=== PATIENT | male | born 1985 | race Caucasian/White ===

== ENCOUNTER 2016-11-24 16:20 | Emergency (ER) | payer SELFPAY ==
[2016-11-24 16:28] VITALS: BP 112/58; PULSE 116; RESP 20; TEMP 99.3; O2SAT 92
[2016-11-24] MEDS ORDERED: NS 2,200 ML IV ONE (16:55)
--- NOTE | 2016-11-24 17:00 | EDPHY ---
H & P Stated Complaint: multiple inf sores over body/drowsy/denies drug use Time Seen by Provider: 11/24/16 16:39 HPI/ROS: Chief complaint: Feels unwell, believes he has an infection History of present illness: This is a 31-year-old male, homeless, recently treated in [place] for endocarditis reporting 3 months of IV antibiotics who presents to the emergency department stating he feels unwell. Patient describes generalized malaise. He further has noticed the sudden onset of wounds over the last 3-4 days across his body including the legs, torso and face. The wounds are uncomfortable. Patient states in the spring of this year he was treated in [place] for infectious endocarditis. Review of systems: A 10 point review of systems was obtained and other than described above was negative - Personal History Current Tetanus/Diphtheria Vaccine: Yes - Medical/Surgical History Hx Asthma: No Hx Chronic Respiratory Disease: No Hx Diabetes: No Hx Cardiac Disease: No Hx Renal Disease: No Hx Cirrhosis: No Hx Alcoholism: No Hx HIV/AIDS: No Hx Splenectomy or Spleen Trauma: No Other PMH: endocarditis/ - Social History Smoking Status: Never smoked - Physical Exam Exam: General Appearance: Alert, unwell appearing. Eyes: Pupils equal and round no pallor or injection. ENT, Mouth: Mucous membranes moist. Respiratory: There are no retractions, lungs are clear to auscultation. Cardiovascular: Tachycardic with systolic murmur Gastrointestinal: Abdomen is soft and non tender, no masses, bowel sounds normal. Neurological: Alert. Strength and sensation intact and symmetrical. Skin: Multiple crusted wounds to the legs, torso and the face Musculoskeletal: Neck is supple non tender. Extremities are symmetrical, full range of motion. Psychiatric: There is no agitation. Constitutional: Initial Vital Signs Temperature (C) 37.4 C 11/24/16 16:24 Heart Rate 116 H 11/24/16 16:24 Respiratory Rate 20 11/24/16 16:24 Blood Pressure 112/58 L 11/24/16 16:24 O2 Sat (%) 92 11/24/16 16:24 O2 Delivery Mode Room Air Allergies/Adverse Reactions: No Known Allergies Allergy (Unverified 11/24/16 16:24) Home Medications: Medication Instructions Recorded NK [No Known Home Meds] 11/24/16 Medical Decision Making ED Course/Re-evaluation: Patient is seen under the supervision of my primary supervising physician Dr. Serena Vee. Patient presents to the emergency department with a friend concerned he has an infection. He describes feeling unwell and developing skin lesions. Patient does have a history of IV drug abuse. He did have infectious endocarditis in the spring of this year and states he had 3 months worth of IV antibiotics back in [place]. On my evaluation he is unwell appearing. He is tachycardic. Septic workup is begun including blood studies and aggressive fluid hydration. Patient informed nursing staff he did not want to pursue a workup. He stated he wanted to leave. I re-evaluated the patient. Patient was fully awake, alert and oriented. He stated he just did not want to be here and wanted to leave. I discussed with him I am very concerned for potential severe infection that could be possibly disabling or life-threatening. He is able to verbalize what my concerns are iand understands them. He still wants to leave. He is competent to make this decision. He understands this is against medical advice. Patient ultimately left AMA with his friend. He understands he can return any time if he would like to pursue a workup. Differential Diagnosis: Included but not limited to skin infections, respiratory infections including pneumonia, infectious endocarditis Departure - Departure Disposition: Against Medical Advice Clinical Impression: Malaise, Skin lesions Condition: Fair Referrals: NONE *PRIMARY CARE P,. [Primary Care Provider] - As per Instructions
[2016-11-24] MEDS ORDERED: NALOXONE HCL 0.4 MG/ML INJ IVP ONE (17:08)
== END 2016-11-24 17:42 | disposition left against medical advice (07) ==
DX: R53.81 Other malaise (principal); L98.9 Disorder of the skin and subcutaneous tissue, unspecified
CPT/HCPCS: J2310

== ENCOUNTER 2017-01-25 14:16 | Inpatient (IN) | payer SELFPAY ==
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
[2017-01-25 14:35] LABS: % IMMATURE GRANULYOCYTES 1.1 % (0.0-1.1); ABSOLUTE IMMATURE GRANULOCYTES 0.15 10^3/uL (0.00-0.10); ADD DIFF? NO; ADD MORPH? NO; ADD SCAN? NO; ATYPICAL LYMPHOCYTE FLAG 50 (0-99); FRAGMENT RBC FLAG 0 (0-99); HEMATOCRIT 42.6 % (40.0-51.0); HEMOGLOBIN 13.3 g/dL (13.7-17.5); LEFT SHIFT FLG 0 (0-99); LIPEMIA HEMOLYSIS FLAG 80 (0-99); MEAN CELL HEMOGLOBIN 26.8 pg (27.9-34.1); MEAN CELL HEMOGLOBIN CONCENTR. 31.2 g/dL (32.4-36.7); MEAN CELL VOLUME 85.9 fL (81.5-99.8); MEAN PLATELET VOLUME 8.9 fL (8.7-11.7); PLATELET CLUMPS FLAG 0 (0-99); PLATELET COUNT 366 10^3/uL (150-400); RED BLOOD CELL COUNT 4.96 10^6/uL (4.40-6.38); RED CELL DISTRIBUTION WIDTH 18.6 % (11.5-15.2)
[2017-01-25 14:50] LABS: ANION GAP 11 mEq/L (8-16); C-REACTIVE PROTEIN 17.3 mg/L (<10.0); CALCIUM 9.3 mg/dL (8.5-10.4); CARBON DIOXIDE 25 mEq/l (22-31); CHLORIDE 105 mEq/L (97-110); CREATININE 0.6 mg/dL (0.7-1.3); GLOMERULAR FILTRATION RATE > 60; GLUCOSE 107 mg/dL (70-100); SODIUM 141 mEq/L (134-144)
[2017-01-25 15:07] LABS: SEDIMENTATION RATE 38 MM/HR (0-15)
[2017-01-25] MEDS ORDERED: ACETAMINOPHEN 325 MG TAB PO ONE (16:31)
--- NOTE | 2017-01-25 16:40 | ECHO ---
[email or web address] [address] [address] Main: [phone] Fax: [email or web address] Echocardiogram Name: SAJAN MEYER MR#: [id number] Study Date: 01/25/2017 Study Time: 03:37 PM Date of : 1985 Age: 31 year(s) Height: 177.8 cm (70 in.) Weight: 68.04 kg (150 lb.) BSA: 1.85 m2 Gender: Male Examination: Echo Indication: Chest Pain, history of pericarditis Image Quality: Adequate Contrast: Requested by: Manuel Garcia BP: 125 mmHg/75 mmHg Heart Rate: Rhythm: Indication: Chest Pain, history of pericarditis Procedure Staff Mold Stripper: Js Carvajal Reading Physician: Sanchez Wallace Requesting Provider: Conclusions: EF is 69 %. Flattened interventricular septum secondary to RV volum/pressure overload. Mildly to moderately dilated right ventricle. Mildly reduced RV function. Severe tricuspid regurgitation is present. Large vegetation noted on the anterior tricuspid leaflet. The pulmonary artery pressure is moderately increased. recommend cardiothorasic and infectious disease consults Measurements: Chambers Valvular Assessment AV/MV Valvular Assessment TV/PV Normal Normal Normal Name Value Range Name Value Range Name Value Range Ao Karen (MM): 3.4 cm (2.2 cm-3.7 AV Vmax: 0.78 m/s (1 m/s-1.7 TR Vmax: 3.65 mm/s ( - ) cm) m/s) TR PGmax: 53 mmHg ( - ) IVSd (2D): 0.8 cm (0.6 cm-1.1 AV maxP mmHg ( - ) syst. PAP: 58 mmHg ( - ) cm) LVOT Vmax: 0.85 m/s (0.7 m/s-1.1 LVDd (2D): 4.4 cm (4.2 cm-5.9 m/s) cm) MV E Vmax: 0.73 m/s ( - ) LVDs (2D): 2.7 cm (2.1 cm-4 MV A Vmax: 0.43 m/s ( - ) cm) MV E/A: 1.70 ( - ) LVPWd (2D): 1.0 cm (0.6 cm-1 cm) LVEF (2D): 69 (>=54 %) Continued Measurements: Chambers Valvular Assessment TV/PV Name Value Name Value LADs Lon.4 cm CVP (est.): 5 mmHg Patient: SAJAN MEYER Study Date: 01/25/2017 Page 1 of 2 03:37 PM LA Area: 10.8 cm2 Findings: Left Ventricle: Normal size left ventricle. Normal global systolic LV function. EF is 69 %. Flattened interventricular septum secondary to RV volum/pressure overload. Right Ventricle: Mildly to moderately dilated right ventricle. Mildly reduced RV function. Left Atrium: The left atrium is normal in size. Right Atrium: The right atrium is normal in size. Mitral Valve: The mitral valve is normal in appearance. Mild mitral valve regurgitation is present. Aortic Valve: The aortic valve is normal in appearance. There is no significant aortic valve regurgitation. Tricuspid Valve: Abnormal appearing tricuspid valve. Severe tricuspid regurgitation is present. Large vegetation noted on the anterior tricuspid leaflet. The pulmonary artery pressure is moderately increased. Pulmonic Valve: Pulmonary valve not well visualized. Pericardium: No pericardial effusion. (No Signature Object) Patient: SAJAN MEYER Study Date: 01/25/2017 Page 2 of 2 03:37 PM [id number]
[2017-01-25] MEDS ORDERED: ACETAMINOPHEN 325 MG TAB PO PRN (18:48)
[2017-01-25] MEDS ORDERED: ONDANSETRON DISINTEGRATING 4 MG TAB PO PRN (18:48)
[2017-01-25] MEDS ORDERED: LORazepam 0.5 MG TAB PO PRN (18:48)
[2017-01-25] MEDS ORDERED: ONDANSETRON 4 MG/2 ML VIAL IVP PRN (18:48)
[2017-01-25] MEDS ORDERED: ALPRAZolam 1 MG TAB PO PRN (19:28)
[2017-01-25] MEDS: NICOTINE 14 MG/24 HR PATCH TD SCH (19:59)
[2017-01-25] MEDS: OXYCODONE/APAP 5/325 TAB PO PRN (19:59)
[2017-01-25] MEDS: ALPRAZolam 1 MG TAB PO PRN (19:59)
[2017-01-25] MEDS: IBUPROFEN 200 MG TAB PO PRN (19:59)
[2017-01-25] MEDS ORDERED: ceFAZolin 2 GM/DEXTROSE 100 ML IV SCH (22:00)
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
[2017-01-26] MEDS: OXYCODONE/APAP 5/325 TAB PO PRN ×5 (02:57→22:12)
[2017-01-26] MEDS: IBUPROFEN 200 MG TAB PO PRN ×2 (02:57→09:05)
[2017-01-26 04:39] LABS: % IMMATURE GRANULYOCYTES 0.9 % (0.0-1.1); ABSOLUTE IMMATURE GRANULOCYTES 0.11 10^3/uL (0.00-0.10); ADD DIFF? NO; ADD MORPH? NO; ADD SCAN? NO; ATYPICAL LYMPHOCYTE FLAG 40 (0-99); FRAGMENT RBC FLAG 0 (0-99); HEMATOCRIT 39.6 % (40.0-51.0); HEMOGLOBIN 12.4 g/dL (13.7-17.5); LEFT SHIFT FLG 0 (0-99); LIPEMIA HEMOLYSIS FLAG 80 (0-99); MEAN CELL HEMOGLOBIN 27.1 pg (27.9-34.1); MEAN CELL HEMOGLOBIN CONCENTR. 31.3 g/dL (32.4-36.7); MEAN CELL VOLUME 86.7 fL (81.5-99.8); MEAN PLATELET VOLUME 8.9 fL (8.7-11.7); PLATELET CLUMPS FLAG 0 (0-99); PLATELET COUNT 299 10^3/uL (150-400); RED BLOOD CELL COUNT 4.57 10^6/uL (4.40-6.38); RED CELL DISTRIBUTION WIDTH 18.9 % (11.5-15.2)
[2017-01-26 05:00] LABS: ANION GAP 10 mEq/L (8-16); CALCIUM 8.6 mg/dL (8.5-10.4); CARBON DIOXIDE 27 mEq/l (22-31); CHLORIDE 107 mEq/L (97-110); CREATININE 0.6 mg/dL (0.7-1.3); GLOMERULAR FILTRATION RATE > 60; GLUCOSE 86 mg/dL (70-100); POTASSIUM 4.5 mEq/L (3.5-5.2); SODIUM 144 mEq/L (134-144)
[2017-01-26] MEDS: ALPRAZolam 1 MG TAB PO PRN (08:00)
[2017-01-26] MEDS: NICOTINE 14 MG/24 HR PATCH TD SCH (08:01)
[2017-01-26] MEDS ORDERED: ENOXAPARIN 40 MG/0.4 ML SYR SC SCH (09:00)
[2017-01-26] MEDS ORDERED: cefTRIAXone 2 GM in D5W 50 ML IV SCH (09:00)
--- NOTE | 2017-01-26 09:30 | PDMN ---
Medical Necessity Medical necessity: M334 infective endocarditis- fever, fatigue, wt. loss- in IV drug user with hx of previous endocarditis-
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
[2017-01-26] MEDS ORDERED: IOPAMIDOL (ISOVUE 370) 100 ML BTL IV ONE (13:22)
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
[2017-01-26] MEDS: VANCOMYCIN HCL/NORMAL SALINE 250 ML IV SCH (17:41)
[2017-01-26] MEDS ORDERED: HEPARIN/DEXTROSE 500 ML IV SCH (18:00)
[2017-01-26] MEDS ORDERED: HEPARIN 10,000 UNIT/10 ML MDV IVP ONE (18:00)
[2017-01-26] MEDS ORDERED: HEPARIN 10,000 UNIT/10 ML MDV IVP PRN (18:00)
[2017-01-26] MEDS: ALPRAZolam 1 MG TAB PO SCH (20:01)
[2017-01-26 20:38] LABS: % IMMATURE GRANULYOCYTES 0.9 % (0.0-1.1); ADD DIFF? NO; ADD MORPH? NO; ADD SCAN? NO; ATYPICAL LYMPHOCYTE FLAG 30 (0-99); FRAGMENT RBC FLAG 0 (0-99); HEMATOCRIT 39.5 % (40.0-51.0); HEMOGLOBIN 12.2 g/dL (13.7-17.5); LEFT SHIFT FLG 0 (0-99); LIPEMIA HEMOLYSIS FLAG 80 (0-99); MEAN CELL HEMOGLOBIN 26.7 pg (27.9-34.1); MEAN CELL HEMOGLOBIN CONCENTR. 30.9 g/dL (32.4-36.7); MEAN CELL VOLUME 86.4 fL (81.5-99.8); MEAN PLATELET VOLUME 8.8 fL (8.7-11.7); PLATELET CLUMPS FLAG 0 (0-99); PLATELET COUNT 313 10^3/uL (150-400); RED BLOOD CELL COUNT 4.57 10^6/uL (4.40-6.38); RED CELL DISTRIBUTION WIDTH 18.9 % (11.5-15.2)
[2017-01-26 20:44] LABS: APTT 29.3 SEC (23.0-38.0); INR 0.9 (0.83-1.16)
[2017-01-26] MEDS: ZOLPIDEM TARTRATE 5 MG TAB PO PRN (22:13)
[2017-01-27] MEDS: OXYCODONE/APAP 5/325 TAB PO PRN ×5 (03:16→23:08)
[2017-01-27] MEDS: VANCOMYCIN HCL/NORMAL SALINE 250 ML IV SCH ×3 (04:32→23:09)
[2017-01-27] MEDS: ALPRAZolam 1 MG TAB PO SCH ×4 (09:01→23:09)
[2017-01-27] MEDS: NICOTINE 14 MG/24 HR PATCH TD SCH (09:01)
--- NOTE | 2017-01-27 10:56 | PCMIDPN ---
Assessment/Plan: Coagulase negative staphylococcus TV endocarditis with significant TV dysfunction + pulm emboli + elevated PA pressures --increase dose of vancomycin for goal trough 15-20 , vancomycin 1gm IV q8h --get records from last, hospitalization May 2016; [facility] --repeat blood cultures tomorrow --await ID of organism --HIV, HCV screening --dc ceftriaxone extensive discussion with mom via phone. Endorses past drug use IV, long- standing anxiety with minimal psychiatric evaluation and treatment with Xanax Meds vancomycin 1gm IV q12, #1 ceftriaxone #2 Subjective: denies IVDU to me, reports heavy MJ use and Xanex 4mg/day total upset about blood draw Objective: Vital Signs Temp Pulse Resp BP Pulse Ox 36.6 C 101 H 18 106/79 95 01/27/17 08:00 01/27/17 08:00 01/27/17 08:00 01/27/17 08:00 01/27/17 08:00 Laboratory Results 01/26/17 20:15 01/26/17 04:06 01/26/17 01/27/17 01/28/17 05:59 05:59 05:59 Intake Total 1100 2480 Output Total 1750 Balance 1100 730 ESR 38 MM/HR (0-15) H 01/25/17 14:16 C-Reactive Protein 17.3 mg/L (<10.0) H 01/25/17 14:16 - Physical Exam General Appearance: alert, other (Tearful) EENT: pale conjunctiva, poor dentition Respiratory: other (splinting, decreased breath sounds in the bases), No accessory muscle use Cardiac/Chest: regular rate, rhythm, systolic murmur (Blowing systolic murmur loudest at the lower left sternal border) Extremities: other (Poor nail hygiene no clear peripheral stigmata of endocarditis), No pedal edema Abdomen: non-tender, soft Male Genitalia: No caraballo Skin: embolic lesions, No rash, No signs of IVDA Neuro/Psych: oriented x 3, No motor weakness - Line/s PIV Lines: No drainage, No erythema - Time Spent With Patient Time Spent with Patient: greater than 35 minutes (care coordinated with RN and hospitalist) Time Spent with Patient: Greater than 35 minutes spent on this patients care, greater than 50% of time spent counseling, educating, and coordinating care regarding the above mentioned plan. ICD10 Worksheet Patient Problems: Problems Problem Status Onset Endocarditis Acute
[2017-01-27] MEDS: NICOTINE 21 MG/24 HR PATCH TD SCH (12:08)
[2017-01-27] MEDS: APIXABAN 5 MG TAB PO SCH ×2 (12:10→21:01)
[2017-01-27] MEDS: SERTRALINE HCL 50 MG TAB PO SCH (17:26)
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
[2017-01-27] MEDS: ZOLPIDEM TARTRATE 5 MG TAB PO PRN (21:01)
[2017-01-27 21:29] LABS: ALBUMIN 2.9 g/dL (3.5-5.0); BILIRUBIN,TOTAL 0.1 mg/dL (0.1-1.4); BILIRUBIN-CONJUGATED 0.1 mg/dL (0.0-0.5); TOTAL PROTEIN 6.3 g/dL (6.3-8.2)
[2017-01-28] MEDS: oxyCODONE IR 5 MG TAB PO PRN ×5 (05:06→21:47)
[2017-01-28] MEDS: VANCOMYCIN HCL/NORMAL SALINE 250 ML IV SCH ×3 (05:54→21:30)
[2017-01-28] MEDS: ALPRAZolam 1 MG TAB PO SCH ×2 (05:54→11:29)
[2017-01-28] MEDS: NICOTINE 21 MG/24 HR PATCH TD SCH (09:26)
[2017-01-28] MEDS: SERTRALINE HCL 50 MG TAB PO SCH (09:28)
[2017-01-28] MEDS: APIXABAN 5 MG TAB PO SCH ×2 (09:29→20:45)
[2017-01-28 14:34] LABS: % IMMATURE GRANULYOCYTES 1.7 % (0.0-1.1); ABSOLUTE IMMATURE GRANULOCYTES 0.21 10^3/uL (0.00-0.10); ADD DIFF? NO; ADD MORPH? NO; ADD SCAN? NO; ATYPICAL LYMPHOCYTE FLAG 40 (0-99); FRAGMENT RBC FLAG 0 (0-99); HEMATOCRIT 38.7 % (40.0-51.0); HEMOGLOBIN 12.5 g/dL (13.7-17.5); LEFT SHIFT FLG 10 (0-99); LIPEMIA HEMOLYSIS FLAG 80 (0-99); MEAN CELL HEMOGLOBIN 27.7 pg (27.9-34.1); MEAN CELL HEMOGLOBIN CONCENTR. 32.3 g/dL (32.4-36.7); MEAN CELL VOLUME 85.6 fL (81.5-99.8); MEAN PLATELET VOLUME 8.4 fL (8.7-11.7); PLATELET CLUMPS FLAG 0 (0-99); PLATELET COUNT 213 10^3/uL (150-400); RED BLOOD CELL COUNT 4.52 10^6/uL (4.40-6.38); RED CELL DISTRIBUTION WIDTH 19.1 % (11.5-15.2)
[2017-01-28 15:06] LABS: ALANINE AMINOTRANSFERASE 127 IU/L (21-72); ALBUMIN 2.7 g/dL (3.5-5.0); ALKALINE PHOSPHATASE 199 IU/L (38-126); ANION GAP 9 mEq/L (8-16); ASPARTATE AMINOTRANSFERASE 98 IU/L (17-59); BILIRUBIN,TOTAL 0.2 mg/dL (0.1-1.4); BILIRUBIN-CONJUGATED 0.1 mg/dL (0.0-0.5); BILIRUBIN-UNCONJUGATED 0.1 mg/dL (0.0-1.1); CALCIUM 8.3 mg/dL (8.5-10.4); CARBON DIOXIDE 28 mEq/l (22-31); CHLORIDE 100 mEq/L (97-110); CREATININE 0.6 mg/dL (0.7-1.3); GLOMERULAR FILTRATION RATE > 60; GLUCOSE 114 mg/dL (70-100); POTASSIUM 4.5 mEq/L (3.5-5.2); SODIUM 137 mEq/L (134-144); TOTAL PROTEIN 6.6 g/dL (6.3-8.2)
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
[2017-01-28] MEDS ORDERED: ALPRAZolam 0.5 MG TAB PO PRN (15:30)
--- NOTE | 2017-01-28 17:31 | PCMIDPN ---
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 Reassess trough this evening with goal trough approximately 15. Repeat blood cultures are pending to assess for clearance of bacteremia. Hold off on PICC line placement given need to ensure no bacteremia present and will require discussion with patient prior to placement given history of injection drug use. * Hepatitis-C 01/28/17 17:28 01/28/17 17:30 Subjective: Patient complains of diffuse body pain. Objective: Vital Signs Temp Pulse Resp BP Pulse Ox 36.8 C 104 H 18 118/85 H 91 L 01/28/17 11:04 01/28/17 11:04 01/28/17 11:04 01/28/17 11:04 01/28/17 08:00 Laboratory Results 01/28/17 14:24 01/28/17 14:24 01/27/17 01/28/17 01/29/17 05:59 05:59 05:59 Intake Total 2480 300 Output Total 1750 Balance 730 300 ESR 38 MM/HR (0-15) H 01/25/17 14:16 C-Reactive Protein 17.3 mg/L (<10.0) H 01/25/17 14:16 Vancomycin # 2 Blood cultures x2 01/27/2017 pending Blood cultures times for 01/25/2017 with Staphylococcus haemolyticus which is beta-lactam resistant Laboratory Tests 01/27/17 01/27/17 01/27/17 18:56 20:45 20:45 Vancomycin Trough Hep Bs Antigen NEGATIVE Hep Bs Antibody Pending Hep Bs Antibody, Quant Pending Hepatitis C Antibody REACTIVE H HIV 1&2 Antibody NEGATIVE 01/27/17 20:45 Vancomycin Trough 7.6 Hep Bs Antigen Hep Bs Antibody Hep Bs Antibody, Quant Hepatitis C Antibody HIV 1&2 Antibody - Physical Exam General Appearance: alert, non-toxic, other (Mildly agitated) EENT: No scleral icterus, No conjunctival petechiae Respiratory: lungs clear, No respiratory distress Cardiac/Chest: regular rate, rhythm, systolic murmur (3/6 throughout) Abdomen: non-tender, No distended Skin: No embolic lesions ICD10 Worksheet Patient Problems: Problems Problem Status Onset Endocarditis Acute
[2017-01-28] MEDS: ALPRAZolam 0.25 MG TAB PO PRN (20:45)
[2017-01-28] MEDS: ZOLPIDEM TARTRATE 5 MG TAB PO PRN ×2 (21:47→21:49)
[2017-01-29] MEDS: oxyCODONE IR 5 MG TAB PO PRN ×4 (02:11→18:18)
[2017-01-29] MEDS: ALPRAZolam 0.25 MG TAB PO PRN ×4 (03:14→17:38)
[2017-01-29] MEDS: VANCOMYCIN HCL/NORMAL SALINE 250 ML IV SCH ×3 (04:32→20:50)
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
[2017-01-29] MEDS: NICOTINE 21 MG/24 HR PATCH TD SCH (09:56)
[2017-01-29] MEDS: APIXABAN 5 MG TAB PO SCH ×2 (09:57→20:50)
[2017-01-29] MEDS: SENNOSIDES 1 TAB PO SCH ×2 (09:57→20:50)
[2017-01-29] MEDS: SERTRALINE HCL 50 MG TAB PO SCH (09:58)
[2017-01-29] MEDS: PSYLLIUM METAMUCIL 1 PKT PO SCH (09:59)
[2017-01-29] MEDS: POLYETHYLENE GLYCOL 3350 17 GM PKT PO SCH (09:59)
--- NOTE | 2017-01-29 10:10 | PCMIDPN ---
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 Patient is doing well on IV vancomycin. Waiting on most recent cultures from 01/27 to show a whether they will be negative or not. At present point this is 36 hours at incubation time for those. Plan to continue the vancomycin. Patient related that his Plan after this hospitalization was to go back to live with his mother in [place]. Plan: 1. Continue IV vancomycin. 2. Follow up with blood cultures from 01/27/17. 3. Follow clinical course. 01/29/17 14:08 Subjective: Patient was agitated with a vocational nursing instructor this morning. Admits to anxiety underlying all of these difficult interactions. States he still aches all over. No fevers or chills. No rash Objective: Vancomycin #2 Vital Signs Temp Pulse Resp BP Pulse Ox 36.6 C 93 18 119/75 91 L 01/29/17 08:00 01/29/17 08:00 01/29/17 08:00 01/29/17 08:00 01/29/17 08:00 Laboratory Results 01/28/17 14:24 01/28/17 14:24 01/28/17 01/29/17 01/30/17 05:59 05:59 05:59 Intake Total 300 1830 Output Total 1200 Balance 300 630 ESR 38 MM/HR (0-15) H 01/25/17 14:16 C-Reactive Protein 17.3 mg/L (<10.0) H 01/25/17 14:16 - Physical Exam General Appearance: WD/WN, alert, no apparent distress, thin, non-toxic Respiratory: lungs clear, normal breath sounds, No respiratory distress Cardiac/Chest: regular rate, rhythm, No tachycardia Skin: normal color, warm/dry, No rash Neuro/Psych: alert, normal mood/affect, oriented x 3 ICD10 Worksheet Patient Problems: Problems Problem Status Onset Endocarditis Acute
[2017-01-29 13:51] LABS: ALCOHOL - URINE NEGATIVE mg/dL (Cutoff: 10); BARBITURATES, URINE NEGATIVE; COCAINE URINE NEGATIVE; OPIATES URINE NEGATIVE; PHENCYCLIDINE, URINE NEGATIVE ng/mL (Cutoff: 25); TETRAHYDROCANNIBINOL URINE Presumptive Positive ng/mL (Cutoff: 50)
[2017-01-29 13:59] LABS: HEPATITIS Bs Ab QUANT 613 mIU/mL
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
[2017-01-29] MEDS: traZODone 50 MG TAB PO PRN (21:31)
[2017-01-30] MEDS: oxyCODONE IR 5 MG TAB PO PRN ×4 (00:17→18:31)
[2017-01-30] MEDS: VANCOMYCIN HCL/NORMAL SALINE 250 ML IV SCH ×2 (04:22→16:35)
[2017-01-30 05:07] LABS: % IMMATURE GRANULYOCYTES 1.5 % (0.0-1.1); ABSOLUTE IMMATURE GRANULOCYTES 0.19 10^3/uL (0.00-0.10); ADD DIFF? NO; ADD MORPH? NO; ADD SCAN? NO; ATYPICAL LYMPHOCYTE FLAG 30 (0-99); FRAGMENT RBC FLAG 0 (0-99); HEMATOCRIT 40.4 % (40.0-51.0); HEMOGLOBIN 13.4 g/dL (13.7-17.5); LEFT SHIFT FLG 10 (0-99); LIPEMIA HEMOLYSIS FLAG 80 (0-99); MEAN CELL HEMOGLOBIN 27.8 pg (27.9-34.1); MEAN CELL HEMOGLOBIN CONCENTR. 33.2 g/dL (32.4-36.7); MEAN CELL VOLUME 83.8 fL (81.5-99.8); MEAN PLATELET VOLUME 8.7 fL (8.7-11.7); PLATELET CLUMPS FLAG 0 (0-99); PLATELET COUNT 205 10^3/uL (150-400); RED BLOOD CELL COUNT 4.82 10^6/uL (4.40-6.38)
[2017-01-30 05:17] LABS: ALANINE AMINOTRANSFERASE 112 IU/L (21-72); ALBUMIN 3.6 g/dL (3.5-5.0); ALKALINE PHOSPHATASE 203 IU/L (38-126); ANION GAP 13 mEq/L (8-16); ASPARTATE AMINOTRANSFERASE 66 IU/L (17-59); BILIRUBIN,TOTAL 0.3 mg/dL (0.1-1.4); CALCIUM 8.9 mg/dL (8.5-10.4); CARBON DIOXIDE 26 mEq/l (22-31); CHLORIDE 97 mEq/L (97-110); CREATININE 0.5 mg/dL (0.7-1.3); GLOMERULAR FILTRATION RATE > 60; GLUCOSE 84 mg/dL (70-100); POTASSIUM 4.6 mEq/L (3.5-5.2); SODIUM 136 mEq/L (134-144); TOTAL PROTEIN 7.4 g/dL (6.3-8.2)
[2017-01-30] MEDS: ALPRAZolam 0.25 MG TAB PO PRN ×2 (05:34→17:58)
[2017-01-30] MEDS: SERTRALINE HCL 50 MG TAB PO SCH (08:45)
[2017-01-30] MEDS: POLYETHYLENE GLYCOL 3350 17 GM PKT PO SCH (08:45)
[2017-01-30] MEDS: APIXABAN 5 MG TAB PO SCH ×2 (08:45→20:08)
[2017-01-30] MEDS: NICOTINE 21 MG/24 HR PATCH TD SCH (08:45)
[2017-01-30] MEDS: PSYLLIUM METAMUCIL 1 PKT PO SCH (08:46)
[2017-01-30] MEDS: SENNOSIDES 1 TAB PO SCH ×2 (08:46→20:46)
--- NOTE | 2017-01-30 11:33 | PCMIDPN ---
Assessment/Plan: 1. 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 Will repeat vancomycin trough before dose adjustment, as would like trough around 15. I am very leery about a PICC line in this patient. Will need to discuss with my colleagues moving forward. 2.? Chronic hepatitis-C: Will obtain RNA to make sure he has not cleared this on his own. He is immune to hepatitis-B. Will check hepatitis a total antibody to ensure immunity and vaccinate if not immune. Subjective: Patient yelling at me about lack of pain control. Feels no one is listening to him. Wants more Percocet. Does not want to try Toradol, as tells me this does not work. Objective: Vancomycin 1 g IV q.8 hours day 3 Afebrile Vital Signs Temp Pulse Resp BP Pulse Ox 36.4 C 91 15 87/65 L 92 01/30/17 08:20 01/30/17 08:20 01/30/17 08:20 01/30/17 08:20 01/30/17 08:20 Laboratory Results 01/30/17 04:27 01/30/17 04:27 01/29/17 01/30/17 01/31/17 05:59 05:59 04:59 Intake Total 1830 3250 480 Output Total 1200 500 Balance 630 3250 -20 ESR 38 MM/HR (0-15) H 01/25/17 14:16 C-Reactive Protein 17.3 mg/L (<10.0) H 01/25/17 14:16 Blood cultures from January 27 show no growth so far Hepatitis-B immune HIV antibody negative - Physical Exam General Appearance: other (Thin, disheveled male laying in bed, nontoxic. Irritable.) EENT: No thrush Respiratory: lungs clear Cardiac/Chest: systolic murmur, other (No gallop.) Extremities: No calf tenderness Skin: No embolic lesions ICD10 Worksheet Patient Problems: Problems Problem Status Onset Endocarditis Acute
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
[2017-01-30] MEDS: VANCOMYCIN 1.25 GM in D5W 250 ML IV SCH (17:14)
[2017-01-31] MEDS: oxyCODONE IR 5 MG TAB PO PRN ×4 (00:45→17:35)
[2017-01-31] MEDS: VANCOMYCIN 1.25 GM in D5W 250 ML IV SCH ×3 (00:45→18:42)
[2017-01-31] MEDS: ALPRAZolam 0.25 MG TAB PO PRN (05:31)
[2017-01-31] MEDS: SERTRALINE HCL 50 MG TAB PO SCH (10:06)
[2017-01-31] MEDS: SENNOSIDES 1 TAB PO SCH ×2 (10:06→20:45)
[2017-01-31] MEDS: APIXABAN 5 MG TAB PO SCH ×2 (10:06→20:41)
[2017-01-31] MEDS: PSYLLIUM METAMUCIL 1 PKT PO SCH (10:07)
[2017-01-31] MEDS: NICOTINE 21 MG/24 HR PATCH TD SCH (10:07)
[2017-01-31] MEDS: POLYETHYLENE GLYCOL 3350 17 GM PKT PO SCH (10:07)
--- NOTE | 2017-01-31 11:25 | PCMIDPN ---
Assessment/Plan: 1. 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 Vancomycin dose increased yesterday given low trough. Would like trough at 15. Repeat trough tonight. Disposition very unclear at this point in time. No PICC line for now. Patient's mother coming to see him this , and he would like to go back to [place] with her. Will need to sort out these details. Of note, organism susceptible to Daptomycin, and microbiology will include this in his susceptibility profile. 2.? Chronic hepatitis-C: Quantitative RNA pending to make sure he has not cleared this on his own. He is immune to hepatitis-B. Hepatitis a total antibody pending. Vaccinate if not immune. Subjective: Very irritable this morning. Tells me that his anxiety is "out of control." Denies shortness of breath, diarrhea. Complaining of total body pain. Objective: Vancomycin 1.25 g IV q.8 hours day 4. Afebrile Vital Signs Temp Pulse Resp BP Pulse Ox 36.8 C 105 H 15 110/70 93 01/31/17 08:00 01/31/17 08:00 01/31/17 08:00 01/31/17 08:00 01/31/17 08:00 Laboratory Results 01/30/17 04:27 01/30/17 04:27 01/30/17 01/31/17 02/01/17 06:59 05:59 05:59 Intake Total Output Total Balance ESR 38 MM/HR (0-15) H 01/25/17 14:16 C-Reactive Protein 17.3 mg/L (<10.0) H 01/25/17 14:16 Repeat blood cultures have sterilized - Physical Exam General Appearance: no apparent distress, cachetic EENT: pharynx normal, No scleral icterus Respiratory: lungs clear Cardiac/Chest: regular rate, rhythm, systolic murmur Extremities: No pedal edema Abdomen: non-tender, soft Skin: No embolic lesions Neuro/Psych: no motor/sensory deficits, oriented x 3 ICD10 Worksheet Patient Problems: Problems Problem Status Onset Endocarditis Acute
[2017-01-31] MEDS: clonazePAM 0.5 MG TAB PO SCH ×2 (12:42→20:43)
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
[2017-01-31] MEDS: traZODone 50 MG TAB PO PRN (20:43)
[2017-02-01] MEDS: oxyCODONE IR 5 MG TAB PO PRN ×3 (01:29→16:28)
[2017-02-01] MEDS: VANCOMYCIN 1.25 GM in D5W 250 ML IV SCH ×3 (02:54→18:24)
[2017-02-01 05:43] LABS: ANION GAP 14 mEq/L (8-16); CALCIUM 9.1 mg/dL (8.5-10.4); CARBON DIOXIDE 23 mEq/l (22-31); CHLORIDE 100 mEq/L (97-110); CREATININE 0.5 mg/dL (0.7-1.3); GLOMERULAR FILTRATION RATE > 60; GLUCOSE 104 mg/dL (70-100); POTASSIUM 4.8 mEq/L (3.5-5.2); SODIUM 137 mEq/L (134-144)
[2017-02-01 08:09] LABS: 7-NH-CLONAZEPAM-BY GC/MS Negative; 7-NH-FLUNITRAZEPAM-BY GC/MS Negative ng/mL (Cutoff: 50); ALPHA OH-ALPRAZOLAM-BY GC/MS 284 ng/mL; ALPHA OH-TRIAZOLAM-BY GC/MS Negative; INTERPRETATION Positive.; LORAZEPAM-BY GC/MS Negative; NORDIAZEPAM-BY GC/MS Negative; OH-ETHYL-FLURAZEPAM-BY GC/MS Negative; OXAZEPAM-BY GC/MS Negative; TEMAZEPAM-BY GC/MS Negative
[2017-02-01] MEDS: SERTRALINE HCL 50 MG TAB PO SCH (09:04)
[2017-02-01] MEDS: APIXABAN 5 MG TAB PO SCH ×2 (09:04→19:52)
[2017-02-01] MEDS: POLYETHYLENE GLYCOL 3350 17 GM PKT PO SCH (09:05)
[2017-02-01] MEDS: clonazePAM 0.5 MG TAB PO SCH ×2 (09:05→16:28)
[2017-02-01] MEDS: SENNOSIDES 1 TAB PO SCH ×2 (09:06→19:55)
[2017-02-01] MEDS: PSYLLIUM METAMUCIL 1 PKT PO SCH (09:09)
[2017-02-01] MEDS: NICOTINE 21 MG/24 HR PATCH TD SCH (09:13)
[2017-02-01 10:19] LABS: CARBOXY-THC INTERPRETATION Positive.; CARBOXY-THC- by GC MS 136 ng/mL
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
--- NOTE | 2017-02-01 15:03 | ASMTCMCOM ---
CM Note CM Note Notes: Pt here with endocarditis, hx IV drug use. He will need LT IV ABX's. Discussed w/RN who reported that pt says he may be able to go home whis mom to [place] now. Apparently she will be here in next couple days. Anxiety has also been issue for pt- Flaca Saxena consult ordered and msg left w/her. CM w/f and will meet w/pt and mom when she arrives. Date Signed: 02/01/2017 03:02 PM Electronically Signed By:Kalee Peck RN
--- NOTE | 2017-02-01 17:13 | PCMIDPN ---
Assessment/Plan: Assessment/Plan: * Tricuspid valve endocarditis due to Staphylococcus haemolyticus with probable septic pulmonary emboli: Repeat blood culture show clearing of bacteremia. Continue vancomycin. Duration will need to be 4-6 weeks of therapy. Favor avoiding PICC line if possible given injection drug use history. Patient's mother is coming this week to help assist with ultimate disposition planning. * Hepatitis-C: Hepatitis C RNA pending. 02/01/17 17:11 02/01/17 17:12 Subjective: Patient complains of left-sided chest pain. Otherwise feels improved. Objective: Vital Signs Temp Pulse Resp BP Pulse Ox 36.6 C 116 H 12 137/91 H 94 02/01/17 16:00 02/01/17 16:00 02/01/17 16:00 02/01/17 16:00 02/01/17 16:00 Laboratory Results 01/30/17 04:27 02/01/17 04:05 01/31/17 02/01/17 02/02/17 05:59 05:59 05:59 Intake Total 3000 1100 Output Total Balance 3000 1100 ESR 38 MM/HR (0-15) H 01/25/17 14:16 C-Reactive Protein 17.3 mg/L (<10.0) H 01/25/17 14:16 Vancomycin # 5 Blood cultures x2 01/27/2017 no growth Laboratory Tests 01/31/17 17:41 Vancomycin Trough 15.5 - Physical Exam General Appearance: alert, no apparent distress, non-toxic EENT: No thrush, No conjunctival petechiae Respiratory: lungs clear, No respiratory distress Cardiac/Chest: regular rate, rhythm, systolic murmur (3/6 left and right upper sternal borders) Extremities: No inflammation Abdomen: non-tender, No distended Skin: No embolic lesions ICD10 Worksheet Patient Problems: Problems Problem Status Onset Endocarditis Acute
[2017-02-01] MEDS: traZODone 50 MG TAB PO PRN (19:53)
[2017-02-01] MEDS ORDERED: clonazePAM 1 MG TAB PO SCH (21:00)
[2017-02-02] MEDS: oxyCODONE IR 5 MG TAB PO PRN ×3 (01:47→17:58)
[2017-02-02] MEDS: VANCOMYCIN 1.25 GM in D5W 250 ML IV SCH ×3 (01:51→18:06)
[2017-02-02] MEDS: APIXABAN 5 MG TAB PO SCH ×2 (09:39→21:37)
[2017-02-02] MEDS: clonazePAM 0.5 MG TAB PO SCH (09:39)
[2017-02-02] MEDS: NICOTINE 21 MG/24 HR PATCH TD SCH (09:40)
[2017-02-02] MEDS: SERTRALINE HCL 50 MG TAB PO SCH (09:40)
[2017-02-02] MEDS: POLYETHYLENE GLYCOL 3350 17 GM PKT PO SCH (09:49)
[2017-02-02] MEDS: PSYLLIUM METAMUCIL 1 PKT PO SCH (09:49)
[2017-02-02] MEDS: SENNOSIDES 1 TAB PO SCH ×2 (09:49→21:37)
--- NOTE | 2017-02-02 15:17 | PCMIDPN ---
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 2nd episode of endocarditis at the same position although different organism. Discuss with cardiology if would benefit from BRITTANY to better delineate disease. Significant worsening valve function compared to past reports of echocardiograms. Blood cultures have cleared and vanco ROSETTA = 1 --continue vancomycin --check labs and vancomycin trough tomorrow, orders placed --follow up with cards about repeat TTE or BRITTANY # H/o GAS bacteremia TV endocarditis, R septic arthritis of shoulder, L foot cellulitis 06/27/16 blood cx negative s/p PCN -->ceftriaxone. GAS was clinda R # HCV Ab + (VL here pending, VL at outside hospital was 6.1) ; HBcAb + at outside hospital but HBV DNA 07/06/16 negative; HIV neg here # history of IV drug abuse: Stressed the importance of abstinence in light cut 2nd episode of endocarditis. Meds vancomycin 1.25gm IV q12, #6 vanco T 15 Records reviewed from OSH Subjective: Patient remains anxious but much more cooperative then passed exam Objective: Vital Signs Temp Pulse Resp BP Pulse Ox 36.6 C 106 H 12 115/71 96 02/02/17 07:15 02/02/17 12:00 02/02/17 12:00 02/02/17 12:00 02/02/17 12:00 Microbiology 01/27/17 18:56 Blood Culture - Final Blood 01/27/17 20:45 Blood Culture - Final Blood Laboratory Results 01/30/17 04:27 02/01/17 04:05 02/01/17 02/02/17 02/03/17 05:59 05:59 05:59 Intake Total 3000 2080 Balance 3000 2080 ESR 38 MM/HR (0-15) H 01/25/17 14:16 C-Reactive Protein 17.3 mg/L (<10.0) H 01/25/17 14:16 - Physical Exam General Appearance: alert, no apparent distress EENT: No scleral icterus Respiratory: lungs clear, No accessory muscle use Cardiac/Chest: regular rate, rhythm, systolic murmur Extremities: No pedal edema Skin: No rash Neuro/Psych: alert, normal mood/affect, oriented x 3 - Time Spent With Patient Time Spent with Patient: greater than 35 minutes Time Spent with Patient: Greater than 35 minutes spent on this patients care, greater than 50% of time spent counseling, educating, and coordinating care regarding the above mentioned plan. ICD10 Worksheet Patient Problems: Problems Problem Status Onset Endocarditis Acute
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
[2017-02-02] MEDS ORDERED: DIAZEPAM 5 MG TAB PO PRN (15:33)
[2017-02-02] MEDS: DIAZEPAM 5 MG TAB PO PRN ×2 (15:50→17:24)
--- NOTE | 2017-02-02 16:41 | ASMTCMCOM ---
CM Note CM Note Notes: 02/02/2017 Case Management Note Phone call to Mom Cait Verduzco [phone] to confirm trip to [place]. Plane arrives on at 1:30 pm, mom is renting car and plans to come to hospital directly from airport. Plans to return to [place] on Wednesday at 9:30 am flight. Mom reports that pt does not have an ID at this time. Confirmed with pt. Mom is bringing certifcate. Lack of ID prevents pt from boarding a flight back to [place]. Provided information on requirements for state id from [place] to both Mom and pt. Encouraged Mom and pt to explore a reissue of license with the state of [place]. Mom is uncomfortable at this time escorting pt back to [place] for further treatment. Discussed w/pt. Pt agreed to applications to long-term SNF for iv abx treatment. Case Management completed [employer] application, pt signed application. Faxed to [facility] at [phone], confirmed receipt with Austen at [facility]. manager fast food from [facility] to assess pt within 2 business days. Notified Celine about need for long-term medicaid application, will complete on Wednesday. Case Management d/c poc: complete the [facility] [employer] process. Send referrals to SNF for possible intermission coordinator placement to complete iv abx, pt requested referrals to [facility] locations only. Case management to follow. Date Signed: 02/02/2017 04:40 PM Electronically Signed By:Nupur Angulo RN
[2017-02-02] MEDS ORDERED: DIAZEPAM 5 MG TAB PO SCH (21:00)
[2017-02-02] MEDS: DIAZEPAM 5 MG TAB PO SCH (21:37)
[2017-02-02] MEDS: GABAPENTIN 400 MG CAP PO PRN (21:37)
[2017-02-03] MEDS: DIAZEPAM 5 MG TAB PO PRN ×2 (01:10→12:20)
[2017-02-03] MEDS: oxyCODONE IR 5 MG TAB PO PRN ×3 (04:03→23:04)
[2017-02-03] MEDS: VANCOMYCIN 1.25 GM in D5W 250 ML IV SCH ×3 (04:04→21:58)
[2017-02-03] MEDS: SENNOSIDES 1 TAB PO SCH ×2 (09:19→20:25)
[2017-02-03] MEDS: POLYETHYLENE GLYCOL 3350 17 GM PKT PO SCH (09:19)
[2017-02-03] MEDS: DIAZEPAM 5 MG TAB PO SCH ×2 (09:21→20:16)
[2017-02-03] MEDS: NICOTINE 21 MG/24 HR PATCH TD SCH (09:22)
[2017-02-03] MEDS: APIXABAN 5 MG TAB PO SCH ×2 (09:22→20:16)
[2017-02-03 09:23] LABS: AMPHETAMINES CONFIRM INTERP Positive.; AMPHETAMINES URINE LC/MS 169 ng/mL (Cutoff: 25); MDA ECSTASY METABOLITE LC/MS NEGATIVE ng/mL (Cutoff: 25); MDMA ECSTASY BY LC/MS NEGATIVE ng/mL (Cutoff: 25); METHAMPHETAMINE LC/MS 502 ng/mL (Cutoff: 25); PHENTERMINE BY LC/MS NEGATIVE ng/mL (Cutoff: 25); PSEUDOEPHEDRINE BY LC/MS NEGATIVE ng/mL (Cutoff: 25)
[2017-02-03] MEDS: PSYLLIUM METAMUCIL 1 PKT PO SCH (09:56)
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
[2017-02-03 12:27] LABS: % IMMATURE GRANULYOCYTES 1.8 % (0.0-1.1); ABSOLUTE IMMATURE GRANULOCYTES 0.27 10^3/uL (0.00-0.10); ADD DIFF? NO; ADD MORPH? NO; ADD SCAN? NO; ATYPICAL LYMPHOCYTE FLAG 30 (0-99); FRAGMENT RBC FLAG 0 (0-99); HEMATOCRIT 42.1 % (40.0-51.0); HEMOGLOBIN 13.5 g/dL (13.7-17.5); LEFT SHIFT FLG 10 (0-99); LIPEMIA HEMOLYSIS FLAG 80 (0-99); MEAN CELL HEMOGLOBIN 27.1 pg (27.9-34.1); MEAN CELL HEMOGLOBIN CONCENTR. 32.1 g/dL (32.4-36.7); MEAN CELL VOLUME 84.5 fL (81.5-99.8); MEAN PLATELET VOLUME 9.6 fL (8.7-11.7); PLATELET CLUMPS FLAG 0 (0-99); PLATELET COUNT 214 10^3/uL (150-400); RED BLOOD CELL COUNT 4.98 10^6/uL (4.40-6.38); RED CELL DISTRIBUTION WIDTH 19.6 % (11.5-15.2)
[2017-02-03 12:57] LABS: ALANINE AMINOTRANSFERASE 82 IU/L (21-72); ALBUMIN 4.1 g/dL (3.5-5.0); ALKALINE PHOSPHATASE 162 IU/L (38-126); ANION GAP 14 mEq/L (8-16); ASPARTATE AMINOTRANSFERASE 49 IU/L (17-59); BILIRUBIN,TOTAL 0.4 mg/dL (0.1-1.4); CALCIUM 9.6 mg/dL (8.5-10.4); CARBON DIOXIDE 27 mEq/l (22-31); CHLORIDE 101 mEq/L (97-110); CREATININE 0.6 mg/dL (0.7-1.3); GLOMERULAR FILTRATION RATE > 60; GLUCOSE 90 mg/dL (70-100); POTASSIUM 5.1 mEq/L (3.5-5.2); SODIUM 142 mEq/L (134-144); TOTAL PROTEIN 8.7 g/dL (6.3-8.2)
[2017-02-03 13:32] LABS: TETRAHYDROCANNABINOL URINE 33 ng/mL (NEGATIVE); TETRAHYDROCANNABINOL URINE NEGATIVE (NEGATIVE)
[2017-02-03 13:43] LABS: PHENCYCLIDINE URINE BCH < 6 ng/ml (NEGATIVE); PHENCYCLIDINE URINE BCH NEGATIVE (NEGATIVE)
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
--- NOTE | 2017-02-03 16:04 | PCMIDPN ---
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 Patient is doing well on IV vancomycin. Cultures from 01/27 show clearance but WBCs are increased and a repeat TTE today shows that the tricuspid lesion in increased in size from 1.0 cm to 1.5 cm. Will continue his Vancomycin therapy but will need CT surgery consultation given the above findings. Patient related that his plan after this hospitalization continues to be to go back to live with his mother in [place]. Plan: 1. Continue IV vancomycin. 2. Discuss case with cardiology and CT surgery. 3. Follow clinical course. 01/29/17 14:08 02/03/17 20:52 Subjective: Patient is sitting out on the porch with his brother in [place]. Denies new complaint. States that his anxiety is under better control with his current meds. No fevers. Objective: Vancomycin #7 Vital Signs Temp Pulse Resp BP Pulse Ox 36.6 C 100 16 124/79 H 94 02/03/17 12:00 02/03/17 12:00 02/03/17 12:00 02/03/17 12:00 02/03/17 12:00 Laboratory Results 02/03/17 12:10 02/03/17 12:10 02/02/17 02/03/17 02/04/17 05:59 05:59 05:59 Intake Total 2080 1250 600 Output Total 100 Balance 2080 1250 500 ESR 38 MM/HR (0-15) H 01/25/17 14:16 C-Reactive Protein 17.3 mg/L (<10.0) H 01/25/17 14:16 - Physical Exam General Appearance: WD/WN, alert, no apparent distress, thin, non-toxic Respiratory: lungs clear, No respiratory distress Skin: normal color, warm/dry, No rash Neuro/Psych: alert, normal mood/affect, oriented x 3 ICD10 Worksheet Patient Problems: Problems Problem Status Onset Endocarditis Acute
--- NOTE | 2017-02-03 17:30 | ECHO ---
[email or web address] [address] [address] Main: [phone] Fax: Transthoracic Echocardiogram Name: SAJAN MEYER MR#: [id number] Study Date: 02/03/2017 Study Time: 02:29 PM Date of : 1985 Age: 31 year(s) Height: 177.8 cm (70 in.) Weight: 63.05 kg (139 lb.) BSA: 1.79 m2 Gender: Male Examination: Echo Indication: f/u TV vegetation, PE's, persistent leukocytosis Image Quality: Contrast: Requested by: Charity Tobar BP: 124 mmHg/79 mmHg Heart Rate: Rhythm: Sinus tachycardia Indication: f/u TV vegetation, PE's, persistent leukocytosis Procedure Staff Tube Puller: Genia Arrieta Reading Physician: Pedro Pablo Mejia Requesting Provider: Conclusions: Normal size left ventricle. EF is 64 %. Mildly dilated right ventricle. The mitral valve leaflets appear redundant. Severe tricuspid regurgitation is present. There are two mobile echodensities on the septal leaflet of the tricuspid valve.. Mild pulmonic valve regurgitation is noted. There is a probable pulmonary valve vegetation. When compared to the prior study. The vegetation on the tricuspid valve has increased in size. Measurements: Chambers Valvular Assessment AV/MV Valvular Assessment TV/PV Normal Normal Normal Name Value Range Name Value Range Name Value Range Ao Karen (MM): 3.3 cm (2.2 cm-3.7 AV Vmax: 0.80 m/s (1 m/s-1.7 TR Vmax: 2.69 mm/s ( - ) cm) m/s) TR PGmax: 29 mmHg ( - ) IVSd (2D): 0.8 cm (0.6 cm-1.1 AV maxP mmHg ( - ) syst. PAP: 34 mmHg ( - ) cm) LVOT Vmax: 0.73 m/s (0.7 m/s-1.1 PV Vmax: 1.01 m/s (0.6 m/s-0.9 LVDd (2D): 4.2 cm (4.2 cm-5.9 m/s) m/s) cm) MV E Vmax: 0.48 m/s ( - ) PV PGmax: 4 mmHg ( - ) LVDs (2D): 2.7 cm (2.1 cm-4 MV A Vmax: 0.47 m/s ( - ) cm) MV E/A: 1.02 ( - ) LVPWd (2D): 1.0 cm (0.6 cm-1 cm) LVEF (MOD4): 64 % (>=55 %) RVDd(2D): 4.6 cm (1.9 cm-3.8 cmmm) Continued Measurements: Chambers Valvular Assessment TV/PV Patient: SAJAN MEYER Study Date: 02/03/2017 Page 1 of 2 02:29 PM Name Value Name Value TAPSE: 1.8 cm CVP (est.): 5 mmHg Additional Vessels Name Value Ao Ascendin.2 cm Findings: Left Ventricle: Normal size left ventricle. No LV hypertrophy. Normal global systolic LV function. EF is 64 %. No regional wall motion abnormality. Right Ventricle: Mildly dilated right ventricle. Normal RV function. Left Atrium: The left atrium is normal in size. Right Atrium: The right atrium is normal in size. Mitral Valve: The mitral valve leaflets appear redundant. There is no mitral valve regurgitation. There is no mitral valve vegetation. Aortic Valve: The aortic valve is normal in appearance and function. The aortic valve is tri-leaflet. There is no significant aortic valve regurgitation. No aortic valve stenosis is present. There is no aortic valve vegetation. Tricuspid Valve: Severe tricuspid regurgitation is present. The pulmonary artery pressure is mildly increased. There are two mobile echodensities on the septal leaflet of the tricuspid valve.. Pulmonic Valve: Mild pulmonic valve regurgitation is noted. There is a probable pulmonary valve vegetation. Aorta: The aorta is normal. Normal size aortic root measuring 3.3 cm. Normal size ascending aorta measuring 3.2 cm. IVC: The IVC is normal sized. There is inspiratory collapse of the IVC. Pericardium: No pericardial effusion. (No Signature Object) Patient: SAJAN MEYER Study Date: 02/03/2017 Page 2 of 2 02:29 PM [id number]
[2017-02-03] MEDS: GABAPENTIN 400 MG CAP PO PRN (23:04)
[2017-02-04] MEDS: DIAZEPAM 5 MG TAB PO PRN ×2 (00:04→10:34)
--- NOTE | 2017-02-04 01:43 | CPEKG ---
Heart Rate: 100 RR Interval: 600 P-R Interval: 168 QRSD Interval: 98 QT Interval: 356 QTC Interval: 460 P Corrales: 65 QRS Corrales: 77 T Wave Corrales: 51 EKG Severity - ABNORMAL ECG - EKG Impression: SINUS TACHYCARDIA EKG Impression: SUJEY, CONSIDER BIATRIAL ABNORMALITIES EKG Impression: ST ELEV, PROBABLE NORMAL EARLY REPOL PATTERN Electronically Signed By: Silas Barrett 04-Feb-2017 08:51:34
[2017-02-04] MEDS: ACETAMINOPHEN 500 MG TAB PO PRN (02:00)
[2017-02-04] MEDS: VANCOMYCIN 1.25 GM in D5W 250 ML IV SCH (07:48)
[2017-02-04] MEDS: POLYETHYLENE GLYCOL 3350 17 GM PKT PO SCH (07:48)
[2017-02-04] MEDS: PSYLLIUM METAMUCIL 1 PKT PO SCH (07:49)
[2017-02-04] MEDS: DIAZEPAM 5 MG TAB PO SCH ×2 (07:49→20:47)
[2017-02-04] MEDS: NICOTINE 21 MG/24 HR PATCH TD SCH (07:49)
[2017-02-04] MEDS: APIXABAN 5 MG TAB PO SCH ×2 (07:50→20:47)
[2017-02-04] MEDS: SENNOSIDES 1 TAB PO SCH ×2 (07:50→20:52)
[2017-02-04] MEDS: oxyCODONE IR 5 MG TAB PO PRN ×2 (07:50→15:50)
--- NOTE | 2017-02-04 10:38 | PCMIDPN ---
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 2nd episode of endocarditis at the same position although different organism. Repeat ECHO shows worsening TV veg and persistent severe TR --appreciate CT surgery consult --dose of vancomycin getting fairly high with inadequate Vanco trough, concern of renal and antonio-toxicity and practicality of dosing schedule. Start daptomycin 10mg/kg IV daily this evening. --discuss need for anticoagulation with hospitalists # H/o GAS bacteremia TV endocarditis, R septic arthritis of shoulder, L foot cellulitis 06/27/16 blood cx negative s/p PCN -->ceftriaxone. GAS was clinda R # Known HCV: (VL here pending, VL at outside hospital was 6.1) ; HBcAb + at outside hospital but HBV DNA 07/06/16 negative; HIV neg here # history of IV drug abuse: Stressed the importance of abstinence in light cut 2nd episode of endocarditis. Meds vancomycin 1.25gm IV q8, #8 Vanco trough = 11.6 Subjective: Patient feels he is not being treated fairly due to history of IV drug abuse Describes midline chest tightness that is constant Significant level of anxiety associated with news that he needs surgery. Objective: Vital Signs Temp Pulse Resp BP Pulse Ox 36.5 C 105 H 18 106/80 95 02/04/17 07:14 02/04/17 07:14 02/04/17 07:14 02/04/17 07:14 02/04/17 07:14 Laboratory Results 02/03/17 12:10 02/03/17 12:10 02/03/17 02/04/17 02/05/17 05:59 05:59 05:59 Intake Total 1250 2385 Output Total 100 Balance 1250 2285 ESR 38 MM/HR (0-15) H 01/25/17 14:16 C-Reactive Protein 17.3 mg/L (<10.0) H 01/25/17 14:16 - Physical Exam General Appearance: alert, no apparent distress EENT: pale conjunctiva, No conjunctival petechiae Respiratory: No accessory muscle use Neck: supple Cardiac/Chest: tachycardia, systolic murmur (Blowing) Extremities: No pedal edema Skin: No rash Neuro/Psych: alert, normal mood/affect, oriented x 3 - Time Spent With Patient Time Spent with Patient: greater than 35 minutes Time Spent with Patient: Greater than 35 minutes spent on this patients care, greater than 50% of time spent counseling, educating, and coordinating care regarding the above mentioned plan. ICD10 Worksheet Patient Problems: Problems Problem Status Onset Endocarditis Acute
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
[2017-02-04] MEDS: KETOROLAC 30 MG/1 ML SDV IVP PRN ×2 (11:28→20:47)
--- NOTE | 2017-02-04 11:41 | CPEKG ---
Heart Rate: 112 RR Interval: 536 P-R Interval: 152 QRSD Interval: 100 QT Interval: 336 QTC Interval: 459 P Cecil: 65 QRS Cecil: 84 T Wave Cecil: 39 EKG Severity - BORDERLINE ECG - EKG Impression: SINUS TACHYCARDIA EKG Impression: left atrial enlargement Electronically Signed By: Silas Barrett 04-Feb-2017 17:36:40
--- NOTE | 2017-02-04 14:16 | ASMTCMCOM ---
CM Note CM Note Notes: CM spoke w/ Dr. Carbajal and he wanted CM to reach out to ethics to have them consult on the case. Jeannie from ethics met w/ pt and will be making her recommendations. Pt may need surgery because his IV antibiotics are not responding. Mom will be in this afternoon from [place]. Mom will have family meeting w/ treatment team. CM to follow. Date Signed: 02/04/2017 02:15 PM Electronically Signed By:JOEL Delgado
--- NOTE | 2017-02-04 17:52 | GCON ---
[f rep st] CONSULTATION DATE OF CONSULTATION: 02/04/2017 IMPRESSION: 1. Tricuspid valve endocarditis. 2. Anxiety. 3. History of IV and multiple drug abuse. RECOMMENDATIONS: This is a rather complicated situation, given the patient's recurrent IV drug abuse and 2nd episode of tricuspid valve endocarditis with a different organism as outlined in consultatio ns on the chart. This patient underwent 2 months of therapy for IV drug abuse associated endocarditi s with septic shoulder embolization and subsequent drainage x3. He recovered from that, and traveled to [place] where he resumed IV drug abuse. Now, presents with a different organism, Staphylococcus haemolyticus endocarditis on the tricuspid valve with severe tricuspid insufficiency and right ventr icular strain and dilation. He has had approximately a week of IV antibiotics. He has had noted inc rease in the size of his vegetation, approaching 2 cm at present time. Repeat blood cultures have be en negative, although he does maintain a resting heart rate of greater than 100 at rest. There are c oncerns that he is a failure of medical therapy. A severe TR and an increasing vegetation with eleva jes white count indicate he will likely need tricuspid valve surgery earlier than later. There are n o good options in this gentleman. Simply do not believe this valve will be preservable, given the bi leaflet involvement and severe TR and the size of the vegetation. Valve excision alone is fraught wi th early RV dysfunction and failure, and he has already shown signs of RV dysfunction repl acement with a bioprosthetic is the only other option, and, again, the patient, too, had shown no allan lity to avoid IV drug abuse, as this presents its own set of problems with recurrent infection. Advi se him that he will need tricuspid valve surgery at this time I would give him another wee k or so of antibiotics, unless he becomes septic or hemodynamically unstable. We will follow the veg etation with serial echoes. If he does relapse with fevers, bacteremia, or recurrent pulmonary embol i, then there is likely no other option, but surgical intervention early. Again, if we were able to sterilize his blood, delayed valve surgery could be considered, although it does not appear to be mohini nding in that direction. We will follow him with you. This was outlined to the patient who showed n o ability to accept or understand his condition at the present time due to extreme anxiety. His moth er is arriving from out of state, and we will, again, present them with findings and options when she is available. CHIEF COMPLAINT: Fever. HISTORY OF PRESENT ILLNESS: This is a 31-year-old IV drug abuser who presented with persistent fever s, and was found on echo to have a large vegetation. Blood cultures confirmed staphylococcus, and he has been started on appropriate medical therapy. His medical history is as previously stated, consi stent with longstanding history of multiple IV and oral drug abuse history. REVIEW OF SYSTEMS: At the present time, relatively unremarkable. He does have intermittent chest pa in and some shortness of breath with activity, but spends most of his time lying in bed since [facility]. PAST MEDICAL HISTORY: Positive for significant endocarditis about 6-8 months ago with septic right s houlder emboli requiring surgical drainage. He also has a history of anxiety, depression, and ADD. PAST SURGICAL HISTORY: Includes right shoulder surgery and cholecystectomy. ALLERGIES: He has no known allergies. SOCIAL HISTORY: He smokes cigarettes and marijuana. He does not drink alcohol. He has a history of IV drug abuse with speed. He is homeless. PHYSICAL EXAMINATION: GENERAL: A slender, young man lying supine in bed. Appears quite anxious. V ITAL SIGNS: Blood pressure is 106/80, pulse varies between 105 and 115 at rest, respirations are 18, O2 sat is 95% on room air, temperature is 36.5. DATA REVIEWED: CT scan on 26 of January revealed small bilateral subsegmental pulmonary emboli wit h associated pulmonary infarct, most likely consistent with septic emboli. No repeat study has been done since then. Most recent echo suggests increasing vegetation size, approaching 2 cm by my measur ement, with severe tricuspid insufficiency and mildly dilated right ventricle with an ejection fracti on of 64%. There is mild pulmonic valve regurgitation noted with a questionable pulmonic valve veget ation, as well. PA pressures of 34 were noted. White count initially went to 10.86, but has now maribeth e back up to 15.8 from admission. ALT and alk phos are moderately increased. Creatinine is 0.6. /[id number]/MODL
[2017-02-04] MEDS: DAPTOMYCIN IV SCH (18:21)
[2017-02-04] MEDS: NS IV SCH (18:21)
[2017-02-05] MEDS: oxyCODONE IR 5 MG TAB PO PRN ×4 (00:20→21:56)
[2017-02-05] MEDS: DIAZEPAM 5 MG TAB PO PRN ×2 (03:03→11:08)
[2017-02-05] MEDS: KETOROLAC 30 MG/1 ML SDV IVP PRN ×3 (03:06→21:55)
[2017-02-05] MEDS: APIXABAN 5 MG TAB PO SCH (08:29)
[2017-02-05] MEDS: NICOTINE 21 MG/24 HR PATCH TD SCH (08:30)
[2017-02-05] MEDS: DIAZEPAM 5 MG TAB PO SCH ×2 (08:30→21:57)
[2017-02-05] MEDS: POLYETHYLENE GLYCOL 3350 17 GM PKT PO SCH (08:47)
[2017-02-05] MEDS: PSYLLIUM METAMUCIL 1 PKT PO SCH (08:48)
[2017-02-05] MEDS: SENNOSIDES 1 TAB PO SCH ×2 (08:48→21:57)
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
--- NOTE | 2017-02-05 11:25 | PCMIDPN ---
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 2nd episode of endocarditis at the same position although different organism. Repeat ECHO shows worsening TV veg and persistent severe TR --appreciate CT surgery consult --continue daptomycin 10mg/kg IV daily this evening. # H/o GAS bacteremia TV endocarditis, R septic arthritis of shoulder, L foot cellulitis 06/27/16 blood cx negative s/p PCN -->ceftriaxone. GAS was clinda R # Known HCV: (VL here pending, VL at outside hospital was 6.1) ; HBcAb + at outside hospital but HBV DNA 07/06/16 negative; HIV neg here # history of IV drug abuse: Stressed the importance of abstinence in light cut 2nd episode of endocarditis. Meds, Abx #9 daptomycin 10mg/kg IV daily, #2 Subjective: patient c/o intermittent CP Objective: Vital Signs Temp Pulse Resp BP Pulse Ox 36.6 C 109 H 18 119/81 H 95 02/05/17 08:00 02/05/17 08:00 02/05/17 08:00 02/05/17 08:00 02/05/17 08:00 Laboratory Results 02/03/17 12:10 02/03/17 12:10 02/04/17 02/05/17 02/06/17 05:59 05:59 05:59 Intake Total 2385 2360 Output Total 100 Balance 2285 2360 ESR 38 MM/HR (0-15) H 01/25/17 14:16 C-Reactive Protein 17.3 mg/L (<10.0) H 01/25/17 14:16 - Physical Exam General Appearance: alert, no apparent distress EENT: No scleral icterus Respiratory: No accessory muscle use Neuro/Psych: alert, normal mood/affect - Time Spent With Patient Time Spent with Patient: greater than 25 minutes Time Spent with Patient: Greater than 25 minutes spent on this patients care, greater than 50% of time spent counseling, educating, and coordinating care regarding the above mentioned plan. ICD10 Worksheet Patient Problems: Problems Problem Status Onset Endocarditis Acute
--- NOTE | 2017-02-05 11:38 | SOAPPROG ---
NICK Progress Note Assessment/Plan: Assessment: Plan: 02/05/17 11:34 30 min f/f pt ,mother, ethics rep d/w problem of failing medical tx, enlarging RV w pulm htn, likely need for TV replacement tissue v, mech not an option in non-compliant pt need for reop when tissue v fails 8-15 years advised need to sign social contract we will only operate once , if reinfects due to IVDA, I will not offer him surgery all questions addressed give atbs another weedk or so unless becomes toxic or HD unstable Objective: Vital Signs Temp Pulse Resp BP Pulse Ox 36.6 C 109 H 18 119/81 H 95 02/05/17 08:00 02/05/17 08:00 02/05/17 08:00 02/05/17 08:00 02/05/17 08:00 Laboratory Results 02/03/17 12:10 02/03/17 12:10 02/04/17 02/05/17 02/06/17 05:59 05:59 05:59 Intake Total 2385 2360 Output Total 100 Balance 2285 2360 PT 12.0 SEC (12.0-15.0) 01/26/17 20:15 INR 0.90 (0.83-1.16) 01/26/17 20:15 ICD10 Worksheet Patient Problems: Problems Problem Status Onset Endocarditis Acute
[2017-02-05 13:43] LABS: PHENCYCLIDINE URINE BCH < 6 ng/ml (NEGATIVE); PHENCYCLIDINE URINE BCH NEGATIVE (NEGATIVE)
[2017-02-05 13:55] LABS: HCV QT RNA PCR 2304351 IU/mL (<15)
[2017-02-05 13:55] LABS: TETRAHYDROCANNABINOL URINE 233 ng/mL (NEGATIVE)
--- NOTE | 2017-02-05 14:13 | ASMTCMCOM ---
CM Note CM Note Notes: [facility] was here yesterday and met w/ pt. Pt does not meet LTC criteria at this time. Pts mom is here from [place]. Pts mom had a meeting w/ Dr. Carbajal and with Jeannie from ethics. Pt will have surgery in a week and a half. At this time, pt will continue on antibiotics. Pt discussed that he would like to be sober in the future. Pt reports that he is not interested in going to a rehab facility. Pt also plans on staying in [place]. CM to follow. Date Signed: 02/05/2017 02:12 PM Electronically Signed By:JOEL Delgado
[2017-02-05] MEDS: ACETAMINOPHEN 500 MG TAB PO PRN (14:25)
[2017-02-05] MEDS: DAPTOMYCIN IV SCH (18:11)
[2017-02-05] MEDS: NS IV SCH (18:11)
[2017-02-06] MEDS: DIAZEPAM 5 MG TAB PO PRN ×2 (00:17→12:46)
[2017-02-06] MEDS: ACETAMINOPHEN 500 MG TAB PO PRN (01:42)
[2017-02-06] MEDS: oxyCODONE IR 5 MG TAB PO PRN ×3 (03:56→20:41)
[2017-02-06] MEDS: KETOROLAC 30 MG/1 ML SDV IVP PRN (03:56)
[2017-02-06] MEDS: NICOTINE 21 MG/24 HR PATCH TD SCH (08:51)
[2017-02-06] MEDS: DIAZEPAM 5 MG TAB PO SCH ×2 (08:51→20:36)
[2017-02-06] MEDS: SENNOSIDES 1 TAB PO SCH ×2 (09:18→20:36)
[2017-02-06] MEDS: PSYLLIUM METAMUCIL 1 PKT PO SCH (09:18)
[2017-02-06] MEDS: POLYETHYLENE GLYCOL 3350 17 GM PKT PO SCH ×2 (09:18→17:25)
[2017-02-06] MEDS ORDERED: GABAPENTIN 400 MG CAP PO PRN (11:33)
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
--- NOTE | 2017-02-06 14:36 | PCMIDPN ---
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 2nd episode of endocarditis at the same position although different organism. Repeat ECHO shows worsening TV veg and persistent severe TR. Patient remains on room air but persistent tachycardia --appreciate CT surgery consult --continue daptomycin 10mg/kg IV daily, tolerating well --Check labs Wednesday unless clinical change # H/o GAS bacteremia TV endocarditis, R septic arthritis of shoulder, L foot cellulitis 06/27/16 blood cx negative s/p PCN -->ceftriaxone. GAS was clinda R # Known HCV: (viral load 6.36 log IU/mL) ; HBcAb + at outside hospital but HBV DNA 07/06/16 negative; HIV neg here # history of IV drug abuse: Stressed the importance of abstinence in light cut 2nd episode of endocarditis. Meds, Abx #10 daptomycin 10mg/kg (650mg) IV daily, #3, Staph haemolyticus ROSETTA to daptomycin < 1 Subjective: Patient is conversational but complaining regarding restrictions being placed on visitor site and what is in his room. He states that he is going to comply Objective: Vital Signs Temp Pulse Resp BP Pulse Ox 36.5 C 112 H 18 130/84 H 96 02/06/17 12:45 02/06/17 12:45 02/06/17 12:45 02/06/17 12:45 02/06/17 12:45 Laboratory Results 02/03/17 12:10 02/03/17 12:10 02/05/17 02/06/17 02/07/17 05:59 05:59 05:59 Intake Total 2360 1000 Balance 2360 1000 ESR 38 MM/HR (0-15) H 01/25/17 14:16 C-Reactive Protein 17.3 mg/L (<10.0) H 01/25/17 14:16 - Physical Exam General Appearance: alert, no apparent distress Respiratory: lungs clear, No accessory muscle use Cardiac/Chest: tachycardia, diastolic murmur, systolic murmur Skin: No rash Neuro/Psych: alert, normal mood/affect, oriented x 3 ICD10 Worksheet Patient Problems: Problems Problem Status Onset Endocarditis Acute
--- NOTE | 2017-02-06 17:05 | ASMTCMCOM ---
CM Note CM Note Notes: 02/06/2017 Case Management Note Please see nursing notes for complete update. Pt signed contract that is in front of chart. [facility]N aware and involved in case. Met w/pt and Mother Rafia to discuss d/c poc options. State has denied [facility] application, pt will not be eligible for SNF placement. All SNF referrals have been denied d/t pt drug use and recent arrest. Pt states that he is going to "stay clean all by myself because I know it's the right thing to do". Discussed inpatient residential treatment facilities. Offerred to research facilities to take him on a raven basis, likely a [facility] facility. Initially pt refused, then expressed that if it was in [place] he might consider it. States that his pride is in the way and that he fears disappointing people. We discussed that his anxiety may be getting in the way of making a solid decision regarding best outcomes of staying sober. Pt to consider overnight.with case management to check in tomorrow. ARN called inpatient behavioral health to inquire if pt could recieve counseling daily while on 2W to start addressing drug sobriety. Inpt behavioral health unable to provide any visits. Case Management to contact spiritual care for daily visits. Mom is staying until Wednesday but needs clarity on when surgery will happen. She hopes to be here for pt's immediate post op recovery period but is worried about increasing costs for hotel, rental care and flights. She is primary daycare assistant for grandson in [place]. Case Management likely d/c: to [facility], hopefully will secure a reserved bed, with infusion clinic iv abx treatment on a daily basis. Pt reports he has no friends in the area with permanent housing where he could stay. His lack of funds precludes a medical respite bed. Case Management will follow. Date Signed: 02/06/2017 05:04 PM Electronically Signed By:Nupur Angulo RN
[2017-02-06] MEDS: NS IV SCH (17:24)
[2017-02-06] MEDS: DAPTOMYCIN IV SCH (17:24)
[2017-02-06] MEDS: MELATONIN 3 MG TAB PO SCH (20:36)
--- NOTE | 2017-02-06 22:02 | SOAPPROG ---
NICK Progress Note Assessment/Plan: Assessment: Plan: 02/05/17 11:34 30 min f/f pt ,mother, ethics rep d/w problem of failing medical tx, enlarging RV w pulm htn, likely need for TV replacement tissue v, mech not an option in non-compliant pt need for reop when tissue v fails 8-15 years advised need to sign social contract we will only operate once , if reinfects due to IVDA, I will not offer him surgery all questions addressed give atbs another weedk or so unless becomes toxic or HD unstable 02/06/17 21:55 pt advised no benefit to delaying surgery another week, remains tachycardic at rest and SOB w activity enlarging vegetation w pulm htn and severe TR some risk of massive embolus w fatal consequences will offer surgery Wednesday under condition will have no visitors except mother and other security precautions for his safe recovery pt noncompliant and unreliable will advise mother in am Objective: Vital Signs Temp Pulse Resp BP Pulse Ox 36.5 C 122 H 16 121/75 H 94 02/06/17 20:00 02/06/17 20:00 02/06/17 20:00 02/06/17 20:00 02/06/17 20:00 Laboratory Results 02/03/17 12:10 02/03/17 12:10 02/05/17 02/06/17 02/07/17 05:59 05:59 05:59 Intake Total 2360 1000 1000 Balance 2360 1000 1000 PT 12.0 SEC (12.0-15.0) 01/26/17 20:15 INR 0.90 (0.83-1.16) 01/26/17 20:15 ICD10 Worksheet Patient Problems: Problems Problem Status Onset Endocarditis Acute
[2017-02-07] MEDS: DIAZEPAM 5 MG TAB PO PRN ×3 (01:15→12:43)
[2017-02-07] MEDS: NICOTINE 21 MG/24 HR PATCH TD SCH (08:05)
[2017-02-07] MEDS: oxyCODONE IR 5 MG TAB PO PRN ×3 (08:07→21:36)
[2017-02-07] MEDS: SENNOSIDES 1 TAB PO SCH ×2 (08:07→21:20)
[2017-02-07] MEDS: DIAZEPAM 5 MG TAB PO SCH ×2 (08:07→21:36)
--- NOTE | 2017-02-07 10:14 | SOAPPROG ---
NICK Progress Note Assessment/Plan: Assessment: Plan: 02/05/17 11:34 30 min f/f pt ,mother, ethics rep d/w problem of failing medical tx, enlarging RV w pulm htn, likely need for TV replacement tissue v, mech not an option in non-compliant pt need for reop when tissue v fails 8-15 years advised need to sign social contract we will only operate once , if reinfects due to IVDA, I will not offer him surgery all questions addressed give atbs another weedk or so unless becomes toxic or HD unstable 02/06/17 21:55 pt advised no benefit to delaying surgery another week, remains tachycardic at rest and SOB w activity enlarging vegetation w pulm htn and severe TR some risk of massive embolus w fatal consequences will offer surgery Wednesday under condition will have no visitors except mother and other security precautions for his safe recovery pt noncompliant and unreliable will advise mother in am 02/07/17 10:11 pt and mother offered surgery tomorrow pm will atttempt valve preservation but not likely valve replacement will expose to subsequent surgeries w bio degeneration, and high risk of reiinfection with IVDU risk of surgery 1% mortality, 5% reinfection periop, pulmonary embolus, pain reviewed at length scheduled 3rd case tomorrow Objective: Vital Signs Temp Pulse Resp BP Pulse Ox 36.9 C 92 14 115/78 93 02/07/17 07:58 02/07/17 07:58 02/07/17 07:58 02/07/17 07:58 02/07/17 07:58 Laboratory Results 02/03/17 12:10 02/03/17 12:10 02/06/17 02/07/17 02/08/17 05:59 05:59 05:59 Intake Total 1000 1000 Balance 1000 1000 PT 12.0 SEC (12.0-15.0) 01/26/17 20:15 INR 0.90 (0.83-1.16) 01/26/17 20:15 ICD10 Worksheet Patient Problems: Problems Problem Status Onset Endocarditis Acute
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
[2017-02-07] MEDS: KETOROLAC 30 MG/1 ML SDV IVP PRN ×2 (12:43→21:37)
[2017-02-07] MEDS ORDERED: DIAZEPAM 10 MG/2 ML SYR IVP PRN (13:36)
--- NOTE | 2017-02-07 15:30 | PCMIDPN ---
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 2nd episode of endocarditis at the same position although different organism. Repeat ECHO shows worsening TV veg and persistent severe TR. Patient remains on room air but persistent tachycardia --appreciate CT surgery consult --> surgery tomorrow ntinue daptomycin 10mg/kg IV daily, tolerating well --Check labs Wednesday unless clinical change # H/o GAS bacteremia TV endocarditis, R septic arthritis of shoulder, L foot cellulitis 06/27/16 blood cx negative s/p PCN -->ceftriaxone. GAS was clinda R # Known HCV: (viral load 6.36 log IU/mL) ; HBcAb + at outside hospital but HBV DNA 07/06/16 negative; HIV neg here # history of IV drug abuse: Stressed the importance of abstinence in light cut 2nd episode of endocarditis. Meds, Abx #11 daptomycin 10mg/kg (650mg) IV daily, #3, Staph haemolyticus ROSETTA to daptomycin < 1 Time 15 min greater than 50% time spent with reviewing planned treatment and may require prolonged antibiotic therapy postoperatively as well if valve cultures are positive. Subjective: expected anxiety associated with planned surgery Objective: Vital Signs Temp Pulse Resp BP Pulse Ox 36.5 C 98 16 110/68 93 02/07/17 11:02 02/07/17 11:02 02/07/17 11:02 02/07/17 11:02 02/07/17 11:02 Laboratory Results 02/03/17 12:10 02/03/17 12:10 02/06/17 02/07/17 02/08/17 05:59 05:59 05:59 Intake Total 1000 1000 Balance 1000 1000 ESR 38 MM/HR (0-15) H 01/25/17 14:16 C-Reactive Protein 17.3 mg/L (<10.0) H 01/25/17 14:16 - Physical Exam General Appearance: alert, no apparent distress Respiratory: No accessory muscle use Skin: No rash Neuro/Psych: alert, other (Cooperative) ICD10 Worksheet Patient Problems: Problems Problem Status Onset Endocarditis Acute
[2017-02-07] MEDS ORDERED: GABAPENTIN 400 MG CAP PO SCH (16:00)
[2017-02-07] MEDS: GABAPENTIN 300 MG CAP PO SCH ×2 (16:16→21:36)
[2017-02-07] MEDS: DAPTOMYCIN IV SCH (17:30)
[2017-02-07] MEDS: NS IV SCH (17:30)
[2017-02-07] MEDS: POLYETHYLENE GLYCOL 3350 17 GM PKT PO SCH (17:48)
[2017-02-07] MEDS: PSYLLIUM METAMUCIL 1 PKT PO SCH (17:48)
[2017-02-07] MEDS ORDERED: CHLORHEXIDINE GLUC HIBICLENS 118 ML BTL TP SCH (21:00)
[2017-02-07] MEDS ORDERED: MUPIROCIN 2% 22 GM OINT NS ONE (21:00)
[2017-02-07] MEDS: MELATONIN 3 MG TAB PO SCH (21:36)
[2017-02-07] MEDS: DIAZEPAM 10 MG/2 ML SYR IVP PRN (23:41)
[2017-02-08 05:29] LABS: % IMMATURE GRANULYOCYTES 0.5 % (0.0-1.1); ABSOLUTE IMMATURE GRANULOCYTES 0.07 10^3/uL (0.00-0.10); ADD DIFF? NO; ADD MORPH? NO; ADD SCAN? NO; ATYPICAL LYMPHOCYTE FLAG 20 (0-99); FRAGMENT RBC FLAG 20 (0-99); HEMATOCRIT 42.5 % (40.0-51.0); HEMOGLOBIN 13.2 g/dL (13.7-17.5); LEFT SHIFT FLG 0 (0-99); LIPEMIA HEMOLYSIS FLAG 80 (0-99); MEAN CELL HEMOGLOBIN 27.3 pg (27.9-34.1); MEAN CELL HEMOGLOBIN CONCENTR. 31.1 g/dL (32.4-36.7); MEAN CELL VOLUME 87.8 fL (81.5-99.8); MEAN PLATELET VOLUME 9.8 fL (8.7-11.7); PLATELET CLUMPS FLAG 0 (0-99); PLATELET COUNT 384 10^3/uL (150-400); RED BLOOD CELL COUNT 4.84 10^6/uL (4.40-6.38); RED CELL DISTRIBUTION WIDTH 19.6 % (11.5-15.2)
[2017-02-08 05:39] LABS: ALANINE AMINOTRANSFERASE 109 IU/L (21-72); ALBUMIN 4.5 g/dL (3.5-5.0); ALKALINE PHOSPHATASE 143 IU/L (38-126); ANION GAP 16 mEq/L (8-16); ASPARTATE AMINOTRANSFERASE 65 IU/L (17-59); BILIRUBIN,TOTAL 0.3 mg/dL (0.1-1.4); CALCIUM 9.8 mg/dL (8.5-10.4); CARBON DIOXIDE 26 mEq/l (22-31); CHLORIDE 106 mEq/L (97-110); CREATININE 0.8 mg/dL (0.7-1.3); GLOMERULAR FILTRATION RATE > 60; GLUCOSE 85 mg/dL (70-100); POTASSIUM 5.3 mEq/L (3.5-5.2); SODIUM 148 mEq/L (134-144); TOTAL PROTEIN 8.9 g/dL (6.3-8.2)
[2017-02-08] MEDS: SENNOSIDES 1 TAB PO SCH ×2 (08:30→23:30)
[2017-02-08] MEDS: DIAZEPAM 5 MG TAB PO SCH (08:30)
[2017-02-08] MEDS: GABAPENTIN 300 MG CAP PO SCH ×2 (08:31→15:06)
[2017-02-08] MEDS: NICOTINE 21 MG/24 HR PATCH TD SCH (08:35)
[2017-02-08] MEDS: POLYETHYLENE GLYCOL 3350 17 GM PKT PO SCH (08:36)
[2017-02-08] MEDS: oxyCODONE IR 5 MG TAB PO PRN ×2 (08:57→15:06)
[2017-02-08] MEDS ORDERED: ALBUMIN 5% 250 ML BOTTLE IV ONE (09:22)
[2017-02-08] MEDS ORDERED: CALCIUM CHLORIDE 1 GM/10 ML INJ ONE (09:22)
[2017-02-08] MEDS ORDERED: MILRINONE/DEXTROSE/100 ML BAG IV ONE (09:22)
[2017-02-08] MEDS ORDERED: NA BICARBONATE 50 MEQ/50 ML VIAL ONE (09:22)
[2017-02-08] MEDS ORDERED: POTASSIUM Cl (KCl) 20 MEQ/50 ML BAG IV ONE (09:22)
[2017-02-08] MEDS ORDERED: AMINOCAPROIC ACID 5 GM/20 ML VIAL ONE (09:22)
[2017-02-08] MEDS ORDERED: DOPamine/DEXTROSE/250 ML BAG IV ONE (09:22)
[2017-02-08] MEDS ORDERED: niCARdipine/NACL/200 ML BAG IV ONE (09:22)
[2017-02-08] MEDS ORDERED: CITRATE DEXTROSE SOLN 500 ML BAG ONE (09:22)
[2017-02-08] MEDS ORDERED: LIDOCAINE 2% 100 MG/5 ML SYR ONE (09:22)
[2017-02-08] MEDS ORDERED: PROTAMINE SULFATE 50 MG/5 ML VIAL IVP ONE (09:22)
[2017-02-08] MEDS ORDERED: HEPARIN 10,000 UNIT/10 ML MDV ONE (09:23)
[2017-02-08] MEDS ORDERED: ceFAZolin 1 GM VIAL ONE (09:23)
[2017-02-08] MEDS ORDERED: ADENOSINE 6 MG/2 ML VIAL ONE (09:23)
[2017-02-08] MEDS ORDERED: MAGNESIUM SULFATE 1 GM/2 ML VIAL ONE (09:23)
[2017-02-08] MEDS ORDERED: methylPREDNISolone SOD SUCC 1 GM/8 ML VIAL ONE (09:23)
[2017-02-08] MEDS ORDERED: AMIODARONE HCL 150 MG/3 ML VIAL ONE (09:23)
[2017-02-08] MEDS ORDERED: MANNITOL 25% 12.5 GM/50 ML VIAL IVP ONE (11:00)
[2017-02-08] MEDS ORDERED: SODIUM BICARBONATE 20 MEQ, LIDOCAINE 1% 10 ML in NORMOSOL-R 1,000 ML MISC ONE (11:00)
[2017-02-08] MEDS ORDERED: INSULIN REGULAR HUMAN 100 UNIT in NS 100 ML IV ONE (11:00)
[2017-02-08] MEDS ORDERED: AMINOCAPROIC ACID 5 GM/20 ML VIAL IV ONE (11:00)
[2017-02-08] MEDS ORDERED: CITRATE DEXTROSE SOLN 500 ML BAG MISC ONE (11:00)
[2017-02-08] MEDS ORDERED: NOREPINEPHRINE BITARTRATE 16 MG in NS 250 ML IV ONE (11:00)
[2017-02-08] MEDS ORDERED: niCARdipine/NACL 200 ML IV SCH (11:00)
[2017-02-08] MEDS ORDERED: PHENYLEPHRINE HCL 50 MG in NS 250 ML IV ONE (11:00)
[2017-02-08 11:30] LABS: PHENCYCLIDINE URINE BCH < 6 ng/ml (NEGATIVE); PHENCYCLIDINE URINE BCH NEGATIVE (NEGATIVE); TETRAHYDROCANNABINOL URINE 41 ng/mL (NEGATIVE); TETRAHYDROCANNABINOL URINE NEGATIVE (NEGATIVE)
[2017-02-08] MEDS: PSYLLIUM METAMUCIL 1 PKT PO SCH (13:32)
--- NOTE | 2017-02-08 14:37 | SOAPPROG ---
SOAP Progress Note Assessment/Plan: Assessment: Plan: 02/05/17 11:34 30 min f/f pt ,mother, ethics rep d/w problem of failing medical tx, enlarging RV w pulm htn, likely need for TV replacement tissue v, mech not an option in non-compliant pt need for reop when tissue v fails 8-15 years advised need to sign social contract we will only operate once , if reinfects due to IVDA, I will not offer him surgery all questions addressed give atbs another weedk or so unless becomes toxic or HD unstable 02/06/17 21:55 pt advised no benefit to delaying surgery another week, remains tachycardic at rest and SOB w activity enlarging vegetation w pulm htn and severe TR some risk of massive embolus w fatal consequences will offer surgery Wednesday under condition will have no visitors except mother and other security precautions for his safe recovery pt noncompliant and unreliable will advise mother in am 02/07/17 10:11 pt and mother offered surgery tomorrow pm will atttempt valve preservation but not likely valve replacement will expose to subsequent surgeries w bio degeneration, and high risk of reiinfection with IVDU risk of surgery 1% mortality, 5% reinfection periop, pulmonary embolus, pain reviewed at length scheduled 3rd case tomorrow 02/08/17 14:31 pt unwilling to wait for surgery, wishes to eat lunch, wants a different surgeon unable to establish any rapport with patient, has lied repeatedly to me. found with syringes and presumed meth on his person despite restricted visitation this morning I am unwilling to offer this patient surgery since will be very difficult to care for in postoperative period with no level of trust or understanding. would transfer to an institution of his choice, mother advised Objective: Vital Signs Temp Pulse Resp BP Pulse Ox 36.3 C 97 14 113/86 H 92 02/08/17 11:25 02/08/17 11:25 02/08/17 11:25 02/08/17 11:25 02/08/17 11:25 Laboratory Results 02/08/17 04:20 02/08/17 04:20 02/07/17 02/08/17 02/09/17 05:59 05:59 05:59 Intake Total 1000 1300 Balance 1000 1300 PT 12.0 SEC (12.0-15.0) 01/26/17 20:15 INR 0.90 (0.83-1.16) 01/26/17 20:15 ICD10 Worksheet Patient Problems: Problems Problem Status Onset Endocarditis Acute
[2017-02-08] MEDS: DIAZEPAM 10 MG/2 ML SYR IVP PRN (15:07)
[2017-02-08] MEDS ORDERED: DIAZEPAM 5 MG TAB PO PRN (15:23)
[2017-02-08] MEDS ORDERED: GABAPENTIN 300 MG CAP PO SCH (17:30)
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
[2017-02-08] MEDS: NS IV SCH (18:51)
[2017-02-08] MEDS: DAPTOMYCIN IV SCH (18:51)
[2017-02-08] MEDS ORDERED: NALOXONE HCL 0.4 MG/ML INJ ONE (19:48)
--- NOTE | 2017-02-08 20:43 | PCMIDPN ---
Assessment/Plan: # Staph haemolyticus TV endocarditis with significant TV dysfunction + septic pulm emboli + elevated PA pressures. 2nd episode of endocarditis at the same position although different organism. Repeat ECHO showed worsening TV veg and persistent severe TR indicating need for surgical management. Today surgery was cancelled due to delay of surgery and patients unwillingness to wait longer NPO and now Ct surgery feels not safe to operate During my visit patient was very agitated and it was difficult to have any meaningful conversation. Very upset about surgery cancellation, Valium tapering , inability to have visitors. Team plans pursuit of different surgical consult. Would continue IV antibiotics, encouraged patient to stay in the hospital. Patient does not have PICC line. Should we consider placement of PIV daily for daptomycin dose and not leaving chronic PIV line in place? # Known HCV: (viral load 6.36 log IU/mL) ; HBcAb + at outside hospital but HBV DNA 07/06/16 negative; HIV neg here # history of IV drug abuse: amphetamines remain positive in urine and remain positive 3-4 days after last use. Patient has been hospitalized for 14 days which suggests ongoing use. # H/o GAS bacteremia TV endocarditis, R septic arthritis of shoulder, L foot cellulitis 06/27/16 blood cx negative s/p PCN -->ceftriaxone. GAS was clinda R Meds, Abx #12 daptomycin 10mg/kg (650mg) IV daily, #3, Staph haemolyticus ROSETTA to daptomycin < 1 Objective: Vital Signs Temp Pulse Resp BP Pulse Ox 36.8 C 110 H 18 108/62 95 02/08/17 18:37 02/08/17 18:37 02/08/17 18:37 02/08/17 18:37 02/08/17 18:37 Laboratory Results 02/08/17 04:20 02/08/17 04:20 02/07/17 02/08/17 02/09/17 05:59 05:59 05:59 Intake Total 1000 1300 850 Balance 1000 1300 850 ESR 38 MM/HR (0-15) H 01/25/17 14:16 C-Reactive Protein 17.3 mg/L (<10.0) H 01/25/17 14:16 ICD10 Worksheet Patient Problems: Problems Problem Status Onset Endocarditis Acute
[2017-02-08] MEDS: MELATONIN 3 MG TAB PO SCH (23:30)
[2017-02-09] MEDS: oxyCODONE IR 5 MG TAB PO PRN (04:20)
[2017-02-09 09:00] VITALS: BP 95/70; PULSE 94; RESP 14; TEMP 98.3; O2SAT 93
[2017-02-09] MEDS ORDERED: LIDOCAINE 5% 1 EA PATCH TD SCH (09:00)
--- NOTE | 2017-02-09 10:08 | PDIAF ---
- Diagnosis Diagnosis: Staph haemolyticus TV endocarditis, active IV drug use, bacteremia Code Status: Full Code - Medication Management Discharge Medications: Medications to Continue on Transfer Acetaminophen [Tylenol ES 500 mg (*)] 1,000 mg PO Q6HRS PRN #40 tab 02/09/17 [ Last Taken Unknown] DAPTOmycin [Cubicin] 650 mg IV Q24H #30 dose 02/09/17 [Last Taken Unknown] Gabapentin [Neurontin 300 MG (*)] 600 mg PO BIDAC #120 cap 02/09/17 [Last Taken Unknown] Melatonin [Melatonin 3 MG (*)] 3 mg PO HS #30 tab 02/09/17 [Last Taken Unknown] Nicotine [Nicoderm Cq 21 mg (*)] 21 mg TD DAILY #30 patch 02/09/17 [Last Taken Unknown] Route Delivery Driver Antibiotics: Daptomycin 650mg IV daily Usp Antibiotic Stop Date: 03/09/17 (MUST consult with Dr. Tobar prior to stopping Abx) Discharge Medications: Refer to the Discharge Home Medication list for PRN reason. PICC Care - Routine: N/A (peripheral IV line to be placed daily for antibiotics) - Orders Services needed: Registered Nurse Isolation Type: None Diet Recommendation: no restrictions on diet Additional: Patient has ongoing drug addiction and requires social work, counseling, therapy - Labs/Radiology CBC w/diff Date: 02/15/17 ESR Date: 02/15/17 Call or Fax Lab and Imaging Results to: Dr. Tobar - Follow Up Care Current Providers and Referrals: NONE *PRIMARY CARE P,. [Primary Care Provider] - As per Instructions Charity Tobar MD [Medical Doctor] - (please call clinic to schedule follow-up appointments every 2 weeks)
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
--- NOTE | 2017-02-09 11:16 | ASMTCMCOM ---
CM Note CM Note Notes: 02/09/2017 Case Management Note Pt behaviors escalated this morning. pediatric ophthalmologist, Director of Case Management Zoe Pardo, Dr. Pedro Pablo Sotelo and Coordinator [employer] Products of PCU involved. [facility] Police called, arrested pt and transported pt to snf. [phone] fax [phone]. Assisted RN's are not able to start peripheral iv's or deliver the antibiotic infusions. Case Management arranged IV abx infusion services through [facility]. [phone] fax [phone] [facility] is providing daily RN to the snf and reports ability to start peripheral iv's on a daily basis. Faxed all d/c paperwork to snf and [facility]. Preferred given contact information for Zoe Pardo to discuss payment. barrel waterer notified pt's mom, Cait Verduzco, of d/c from hospital. Date Signed: 02/09/2017 11:15 AM Electronically Signed By:Nupur Agnulo RN
[2017-02-09] MEDS ORDERED: PATCH REMOVAL 1 EA PATCH TD SCH (21:00)
[2017-02-10 17:16] LABS: AMPHETAMINES CONFIRM INTERP Positive.; AMPHETAMINES URINE LC/MS 2466 ng/mL (Cutoff: 25); MDA ECSTASY METABOLITE LC/MS NEGATIVE ng/mL (Cutoff: 25); MDMA ECSTASY BY LC/MS NEGATIVE ng/mL (Cutoff: 25); METHAMPHETAMINE LC/MS 27353 ng/mL (Cutoff: 25); PHENTERMINE BY LC/MS NEGATIVE ng/mL (Cutoff: 25); PSEUDOEPHEDRINE BY LC/MS NEGATIVE ng/mL (Cutoff: 25)
== END 2017-02-09 10:14 | DRG 288 ==
LOC: EDUNIT# → F2W 17:39 → F2N 02-08 11:15 → F2W 02-08 14:36
PROVIDERS: ADMIT Internal Medicine; ATTEND Internal Medicine
DX: I33.0 Acute and subacute infective endocarditis (principal); I26.90 Septic pulmonary embolism without acute cor pulmonale; R78.81 Bacteremia; B95.7 Other staphylococcus as the cause of diseases classified elsewhere; F11.20 Opioid dependence, uncomplicated; F15.20 Other stimulant dependence, uncomplicated; F39 Unspecified mood [affective] disorder; F17.210 Nicotine dependence, cigarettes, uncomplicated; F12.90 Cannabis use, unspecified, uncomplicated; F41.9 Anxiety disorder, unspecified; F60.2 Antisocial personality disorder; B18.2 Chronic viral hepatitis C; M25.539 Pain in unspecified wrist; R07.81 Pleurodynia; G47.00 Insomnia, unspecified; Z59.0 Homelessness
CPT/HCPCS: 80305; 80307; 85520-90; 86708-90; 96365; G0472; G0480; J0153; J0282; J0690; J0696; J0878; J1265; J1644; J1650; J1815; J1885; J2001; J2150; J2260; J2310; J2370; J2405; J2720; J2930; J3370; J7060; P9041; Q9967

== ENCOUNTER 2017-02-11 15:38 | Emergency (ER) | payer OTHER ==
[2017-02-11 15:44] VITALS: O2SAT 95
--- NOTE | 2017-02-11 15:56 | CPEKG ---
Heart Rate: 80 RR Interval: 750 P-R Interval: 172 QRSD Interval: 98 QT Interval: 376 QTC Interval: 434 P Orem: 43 QRS Orem: 40 T Wave Orem: 18 EKG Severity - NORMAL ECG - EKG Impression: SINUS RHYTHM Electronically Signed By: Manuel Garcia 11-Feb-2017 21:32:20
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
[2017-02-11 17:02] VITALS: BP 99/65; PULSE 84; RESP 18; TEMP 97.9
== END 2017-02-11 17:02 | disposition home or self-care (01) ==
DX: I38 Endocarditis, valve unspecified (principal); F17.200 Nicotine dependence, unspecified, uncomplicated

== ENCOUNTER 2017-02-12 17:37 | Emergency (ER) | payer OTHER ==
[2017-02-12 17:40] VITALS: BP 118/88; PULSE 94; RESP 16; TEMP 97.5; O2SAT 98
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
== END 2017-02-12 18:10 | disposition left against medical advice (07) ==
DX: Z53.21 Procedure and treatment not carried out due to patient leaving prior to being seen by health care provider (principal)

== ENCOUNTER 2017-02-17 19:53 | Emergency (ER) | payer MEDICAID, OTHER ==
[2017-02-17] MEDS ORDERED: DAPTOMYCIN IV ONE (20:02)
[2017-02-17] MEDS ORDERED: NS IV ONE (20:02)
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
--- NOTE | 2017-02-17 20:09 | CPEKG ---
Heart Rate: 100 RR Interval: 600 P-R Interval: 164 QRSD Interval: 96 QT Interval: 344 QTC Interval: 444 P Columbia: 59 QRS Columbia: 63 T Wave Columbia: 36 EKG Severity - BORDERLINE ECG - EKG Impression: SINUS TACHYCARDIA EKG Impression: PROBABLE LEFT ATRIAL ABNORMALITY EKG Impression: Similar to previous Electronically Signed By: Aditya Clarke 17-Feb-2017 20:14:21
[2017-02-17] MEDS ORDERED: LORazepam 2 MG/ML INJ IVP ONE ×2 (20:16→21:16)
[2017-02-17] MEDS ORDERED: NS 1,000 ML IV ONE (20:24)
[2017-02-17 22:06] VITALS: BP 100/77; PULSE 101; RESP 18; TEMP 97.7; O2SAT 94
== END 2017-02-17 22:04 | disposition home or self-care (01) ==
LOC: EDUNIT#
DX: I33.0 Acute and subacute infective endocarditis (principal); F17.200 Nicotine dependence, unspecified, uncomplicated
CPT/HCPCS: 96365; J0878; J2060

== ENCOUNTER 2017-02-18 20:10 | Emergency (ER) | payer MEDICAID ==
[2017-02-18 20:21] VITALS: TEMP 97.7
[2017-02-18] MEDS ORDERED: DAPTOMYCIN IV ONE (20:39)
[2017-02-18] MEDS ORDERED: NS IV ONE (20:39)
--- NOTE | 2017-02-18 20:42 | EDPHY ---
H & P Smoking Status: Current every day smoker Time Seen by Provider: 02/18/17 20:13 HPI/ROS: CHIEF COMPLAINT: IV antibiotics HISTORY OF PRESENT ILLNESS: 31-year-old male presents to the emergency department with history of endocarditis and is scheduled for IV daptomycin infusion. The patient has a history of polysubstance abuse and was found to have vegetation on tricuspid valve as well as septic emboli. He was scheduled to have surgery by Dr. Carbajal for valve replacement, however the day of surgery the patient states that he did not want to have the surgery because he did not want to stop abusing drugs. He has been receiving IV daptomycin in the emergency department as ordered originally by infectious disease, Dr. Charity Tobar. The patient has had continued ongoing chest pain. This has not changed. The patient would like to have the surgery done. No fevers or chills. He is currently in the custody of the group home. He states he has a court date tomorrow. He also tells me that his mother is trying to arrange for him to see a cardiovascular surgeon in [facility]. No abdominal pain or vomiting. REVIEW OF SYSTEMS: Constitutional: No fever, no chills. Eyes: No double or blurry vision. ENT: No sore throat. Respiratory: No cough, no shortness of breath. Cardiac: Chest pain Gastrointestinal: No abdominal pain, vomiting or diarrhea. Genitourinary: No dysuria. Musculoskeletal: No neck or back pain. Skin: No rashes. Neurological: No headache. (Genia Lance) Past Medical/Surgical History: Substance abuse, endocarditis with vegetation noted to tricuspid valve (Genia Lance) Social History: Homeless currently in group home (Genia Lance) Physical Exam: General Appearance: Alert, no distress. Patient is in handcuffs. Afebrile. Not hypotensive. Not tachycardic. Eyes: Pupils equal and round. Extraocular motions are all intact. ENT: Mouth: Mucous membranes moist. Respiratory: No wheezing, rhonchi, or rales, lungs are clear to auscultation. Cardiovascular: Regular rate and rhythm. Gastrointestinal: Abdomen is soft and nontender, no masses, no rebound or guarding, bowel sounds normal. Neurological: Alert and oriented x 3, cranial nerves II through XII grossly intact Skin: Warm and dry, no rashes. Musculoskeletal: Nontender to palpate along the cervical, thoracic or lumbar spine. Neck is supple. Extremities: Full range of motion and no peripheral edema. Psychiatric: Patient is oriented X 3, there is no agitation. (Genia Lance) Constitutional: Initial Vital Signs Temperature (C) 36.5 C 02/18/17 20:19 Heart Rate 95 02/18/17 20:19 Respiratory Rate 11 L 02/18/17 20:19 Blood Pressure 123/75 H 02/18/17 20:19 O2 Sat (%) 96 02/18/17 20:19 O2 Delivery Mode Room Air Allergies/Adverse Reactions: No Known Allergies Allergy (Verified 02/18/17 20:22) Home Medications: Medication Instructions Recorded Daptomycin 02/11/17 Medical Decision Making ED Course/Re-evaluation: 31-year-old male who is homeless and currently in group home presents to the emergency department for IV daptomycin. The patient was given 650 mg of IV daptomycin. The case was discussed with Dr. Aditya Clarke, secondary supervising physician, who also talked with the patient. He has seen the patient in the emergency department with similar complaints. I initially spoke with Dr. Guillaume who was planning to take the patient to the operating room for tricuspid valve replacement. Dr. Guillaume states that he will night to find another cardiovascular surgeon. I spoke with the on-call infectious disease doctor, Dr. Carrington Cardoza, who recommended continued IV daptomycin. Dr. Charity Tobar is trying to arrange for him to be seen by a CV surgeon at [facility]. Dr. Carrington Cardoza recommended that until that happens, he should return for IV daptomycin. He was not clear why he could not go to the infusion center. It initially sounded as though he needed the medication every 24 hours and this was initiated in the evening after the infusion center had closed. Dr. Aditya Clarke, secondary supervising physician, recommended bringing the patient back to the emergency department tomorrow at 6:00 p.m. for infusion and then the following day on Wednesday at 4:00 p.m. so he will likely be able to have IV daptomycin through the infusion center. I explained to the patient that he needs to connect with a cardiovascular surgeon to replace the mitral valve. Until then, the patient is to receive IV daptomycin. The patient is aware. The patient's vital signs are stable. His exam is otherwise unremarkable. He is not tachycardic. He is not febrile. He is not vomiting. He is still under the care of the group home. He will be discharged back to the group home with the [facility]. (CasiGenia M) Differential Diagnosis: Chest pain including but not limited to myocardial ischemia, pulmonary embolus, chest wall pain, pleural inflammation and pulmonary infectious causes. (Genia Lance) Other Provider: I did evaluate the patient along with Genia Lance. The patient does not have any change in his symptoms from baseline. He has chronic chest pain which is unchanged. He is not short of breath. No jugular venous distention, no edema. He is not hypoxic. He is saturating 97% on room air. He is calm and in no distress. We had discussions with cardiothoracic surgery and ID as outlined. The patient will receive his daptomycin dose here and return tomorrow at 6:00 p.m. and then on Wednesday at 4:00 p.m. hopefully at the infusion center at that point rather than the emergency department. Dr. Tobar is working to get him an appointment [facility] with their cardiothoracic surgeons to see if surgery is an option with them. This will happen on an outpatient basis. Patient is currently in no significant distress. (Aditya Clarke) - Data Points Medications Given: Discontinued Medications Daptomycin 650 mg/ Sodium (Chloride) 113 mls @ 200 mls/hr IV EDNOW ONE PRN Reason: Protocol Stop: 02/18/17 21:12 Last Admin: 02/18/17 21:06 Dose: 113 mls Departure - Departure Disposition: Home, Routine, Self-Care Clinical Impression: Receiving intravenous antibiotic treatment as outpatient Endocarditis Qualifiers: Endocarditis type: infective Infective endocarditis organism: bacterial Chronicity: subacute Qualified Code(s): I33.0 - Acute and subacute infective endocarditis Condition: Good Instructions: Daptomycin (By injection) Additional Instructions: Your still to continue receiving IV daptomycin as an outpatient. Return to the emergency department tomorrow at 6:00 p.m. for IV daptomycin. On Wednesday, February 20, you should return to the hospital at 4:00 p.m. so that that they can do IV daptomycin at the infusion center. Your Infectious Disease provider, Dr. Charity Tobar, is trying to arrange for you to be seen at [facility] by a cardiovascular surgeon. Medically cleared for group home. Referrals: Charity Tobar MD [Medical Doctor] - As per Instructions (Infectious disease)
[2017-02-18 21:12] VITALS: BP 121/70; PULSE 89; RESP 16; O2SAT 97
--- NOTE | 2017-02-19 12:45 | ASMTCMCOM ---
CM Note CM Note Notes: Below is the agreement developed in the hopes that Mr. Verduzco will comply. This note should be reintroduced to him each time he comes into the hospital and/or infusion clinic. Davis Verduzco : 1985 Arrangement for treatment and care: You have been scheduled to receive IV antibiotics once per day for an undetermined time. Appointment time: 2:20pm When: Daily Start: 02/20/17 Care instructions: Mr. Verduzco, it is imperative that you continue to receive IV antibiotics for the infection around your heart. The condition in your heart will NOT be cured by the IV antibiotics, it will only keep it from progressing. As you are aware, your heart is failing; requiring a total valve replacement. Currently, the doctors have deemed you to be a poor candidate for open heart surgery due to your ongoing methamphetamine and other drug use. As discussed after your discharge on 02/09/17, you will need to be of clean of methamphetamine and other drugs for at least 30 days before you will be considered a candidate for an open heart surgery. Dr. Carbajal will not be an option for performing the surgery as you fired him. That said, there are no other cardiothoracic surgeons at [facility], so we will help find an accepting physician when you are ready. Please consider seeking treatment for your addiction. [facility] *Accepts Medicaid [facility] [phone] [facility] [phone] [facility] [phone] Date Signed: 02/19/2017 12:45 PM Electronically Signed By:Zoe Pardo RN
== END 2017-02-18 21:56 | disposition home or self-care (01) ==
DX: I33.0 Acute and subacute infective endocarditis (principal); F17.200 Nicotine dependence, unspecified, uncomplicated; Z51.81 Encounter for therapeutic drug level monitoring
CPT/HCPCS: 96365; J0878

== ENCOUNTER 2017-02-19 17:46 | Emergency (ER) | payer MEDICAID ==
[2017-02-19] MEDS ORDERED: NS IV ONE (17:53)
[2017-02-19] MEDS ORDERED: DAPTOMYCIN IV ONE (17:53)
[2017-02-19 17:55] VITALS: O2SAT 96
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
[2017-02-19 18:44] VITALS: BP 113/73; PULSE 93; RESP 16; TEMP 98.1
== END 2017-02-19 18:43 | disposition home or self-care (01) ==
DX: I33.0 Acute and subacute infective endocarditis (principal); I76 Septic arterial embolism; F17.200 Nicotine dependence, unspecified, uncomplicated; I74.9 Embolism and thrombosis of unspecified artery
CPT/HCPCS: 96365; J0878

== ENCOUNTER 2017-02-27 15:18 | Inpatient (IN) | payer MEDICAID ==
--- NOTE | 2017-02-27 15:25 | EDPHY ---
H & P Time Seen by Provider: 02/27/17 15:23 HPI/ROS: CHIEF COMPLAINT: Fever 39.1 HISTORY OF PRESENT ILLNESS: Patient is a history of endocarditis and is being treated IV daptomycin. He sent to the emergency department by infectious disease physician Dr. Henok Schultz because of a documented fever at the infusion center. The patient says this is associated with cough and chills for the last 24 hr associated with green sputum. He says this is not associated with vomiting or diarrhea, urinary symptoms, sore throat or earache, headache, stiff neck. No skin rash. REVIEW OF SYSTEMS: Eye: no change in vision ENT: no sore throat Cardiac: no chest pain or syncope Pulmonary: HPI Abdomen: no vomiting, diarrhea, abdominal pain Musculoskeletal: no back pain Skin: no rash Neuro: no headache Constitutional: HPI : no urinary symptoms A comprehensive 10 point review of systems is otherwise negative aside from elements mentioned in the history of present illness. PAST MEDICAL HISTORY: Endocarditis and IV drug abuse Social history: Currently in custody. General Appearance: Alert and conversant, cooperative. Eyes: No scleral icterus. ENT, Mouth: Normal mucous membranes. Respiratory: Normal respiratory effort, breath sounds equal, lungs are clear to auscultation. Cardiovascular: Regular rate and rhythm. Gastrointestinal: Abdomen is soft and non tender. Neurological: Alert and oriented x3. Normally conversant. Face symmetric, normal movement and sensation in all extremities. Skin: Warm and dry, no rashes. Musculoskeletal: No peripheral edema and no joint swelling. Normal range of motion of the neck. Psychiatric: Not agitated. Emergency Department course/MDM: Plan for flu and respiratory panel, blood cultures, lactate screening, he will continue his IV daptomycin, admission to the hospital per infectious disease physician Dr. Schultz. Discussed in detail with Infectious Disease medical sales consultant Dr. Schultz prior to the patient's arrival in the emergency department. 1547: Lactate 2.2, 2nd lactate ordered, a 2000 mL normal saline bolus, IV daptomycin 650 mg at the request of Infectious Disease, specifically not giving him other broad-spectrum antibiotics per Dr. Schultz. 1701: CT shows bilateral septic pulmonary emboli per Dr. Rosario. Per discharge summary dictated by Dr. Sotelo dated 02/09/2017 these are not treated with anticoagulation. 1727: repeat lactate 0.9, not hypotensive, does not have septic shock. Smoking Status: Current every day smoker Constitutional: Initial Vital Signs Temperature (C) 36.7 C 02/27/17 15:18 Heart Rate 107 H 02/27/17 15:18 Respiratory Rate 16 02/27/17 15:18 Blood Pressure 116/85 H 02/27/17 15:18 O2 Sat (%) 96 02/27/17 15:18 O2 Delivery Mode Room Air Allergies/Adverse Reactions: No Known Allergies Allergy (Verified 02/19/17 17:48) Home Medications: Medication Instructions Recorded DAPTOmycin [Cubicin 500mg vial (*)] 650 mg IV DAILY 02/27/17 Medical Decision Making - Diagnostics EKG Interpretation: 12-lead EKG interpreted by me; official reading is in trace master. My interpretation is sinus rhythm without acute ischemic changes, normal intervals. Imaging Results: Imaging Impressions Chest X-Ray 02/27/17 15:25 Impression: Patchy left lower lobe airspace opacities concerning for pneumonia. Consider repeat chest x-ray in 6-8 weeks to verify resolution. Differential Diagnosis: Differential for fever considered including but not limited to influenza, UTI, pneumonia, endocarditis, sepsis. Consult/Admit Bed Type: [place] [id number] Critical Care Time: Critical care time spent by me, Dr. Valles, exclusively with the care of this patient was 30 minutes, exclusive of PA or DOCUMENT SPECIALIST time and exclusive of separate procedures. The organ system at risk was infectious and I ordered multiple tests and diagnostics, IV fluid resuscitation, IV antibiotics and discussion with medical sales consultant to stabilize the patient and prevent worsening of the patient's condition. - Data Points Laboratory Results: Laboratory Results 02/27/17 15:30 02/27/17 15:30 02/27/17 02/27/17 02/27/17 16:00 15:44 15:30 WBC RBC Hgb Hct MCV MCH MCHC RDW Plt Count MPV Neut % (Auto) Lymph % (Auto) [place] % (Auto) Eos % (Auto) Baso % (Auto) Nucleat RBC Rel Count Absolute Neuts (auto) Absolute Lymphs (auto) Absolute Monos (auto) Absolute Eos (auto) Absolute Basos (auto) Absolute Nucleated RBC Immature Gran % Immature Gran # PT INR APTT VBG Lactic Acid Sodium 135 mEq/L mEq/L (134-144) Potassium 4.5 mEq/L mEq/L (3.5-5.2) Chloride 96 mEq/L L mEq/L (97-110) Carbon Dioxide 23 mEq/l mEq/l (22-31) Anion Gap 16 mEq/L mEq/L (8-16) BUN 12 mg/dL mg/dL (7-23) Creatinine 0.6 mg/dL L mg/dL (0.7-1.3) Estimated GFR > 60 Glucose 131 mg/dL H mg/dL (70-100) Calcium 9.5 mg/dL mg/dL (8.5-10.4) Total Bilirubin 0.5 mg/dL mg/dL (0.1-1.4) Urine Color YELLOW Urine Appearance CLEAR Urine pH 7.0 (5.0-7.5) Ur Specific [place] 1.013 (1.002-1.030) Urine Protein NEGATIVE (NEGATIVE) Urine Ketones NEGATIVE (NEGATIVE) Urine Blood 1+ H (NEGATIVE) Urine Nitrate NEGATIVE (NEGATIVE) Urine Bilirubin NEGATIVE (NEGATIVE) Urine Urobilinogen NEGATIVE EU EU (0.2-1.0) Ur Leukocyte Esterase NEGATIVE (NEGATIVE) Urine RBC 10-15 /hpf H /hpf (0-3) Urine WBC 1-3 /hpf /hpf (0-3) Ur Epithelial Cells TRACE /lpf /lpf (NONE-1+) Urine Glucose NEGATIVE (NEGATIVE) Nasal Influenza A PCR Pending Nasal Influenza B PCR Pending 02/27/17 02/27/17 02/27/17 15:30 15:30 15:30 WBC 19.71 10^3/uL H 10^3/uL (3.80-9.50) RBC 4.96 10^6/uL 10^6/uL (4.40-6.38) Hgb 14.2 g/dL g/dL (13.7-17.5) Hct 41.4 % % (40.0-51.0) MCV 83.5 fL fL (81.5-99.8) MCH 28.6 pg pg (27.9-34.1) MCHC 34.3 g/dL g/dL (32.4-36.7) RDW 17.2 % H % (11.5-15.2) Plt Count 184 10^3/uL 10^3/uL (150-400) MPV 9.1 fL fL (8.7-11.7) Neut % (Auto) 68.7 % % (39.3-74.2) Lymph % (Auto) 21.4 % % (15.0-45.0) [place]oll[place] % (Auto) 7.7 % % (4.5-13.0) Eos % (Auto) 0.9 % % (0.6-7.6) Baso % (Auto) 0.5 % % (0.3-1.7) Nucleat RBC Rel Count 0.0 % % (0.0-0.2) Absolute Neuts (auto) 13.55 10^3/uL H 10^3/uL (1.70-6.50) Absolute Lymphs (auto) 4.22 10^3/uL H 10^3/uL (1.00-3.00) Absolute Monos (auto) 1.51 10^3/uL H 10^3/uL (0.30-0.80) Absolute Eos (auto) 0.18 10^3/uL 10^3/uL (0.03-0.40) Absolute Basos (auto) 0.09 10^3/uL 10^3/uL (0.02-0.10) Absolute Nucleated RBC 0.00 10^3/uL 10^3/uL (0-0.01) Immature Gran % 0.8 % % (0.0-1.1) Immature Gran # 0.16 10^3/uL H 10^3/uL (0.00-0.10) PT 12.9 SEC SEC (12.0-15.0) INR 0.95 (0.83-1.16) APTT 31.6 SEC SEC (23.0-38.0) VBG Lactic Acid 2.2 mmol/L H mmol/L (0.7-2.1) Sodium Potassium Chloride Carbon Dioxide Anion Gap BUN Creatinine Estimated GFR Glucose Calcium Total Bilirubin Urine Color Urine Appearance Urine pH Ur Specific [place] Urine Protein Urine Ketones Urine Blood Urine Nitrate Urine Bilirubin Urine Urobilinogen Ur Leukocyte Esterase Urine RBC Urine WBC Ur Epithelial Cells Urine Glucose Nasal Influenza A PCR Nasal Influenza B PCR Medications Given: Discontinued Medications Daptomycin 650 mg/ Sodium (Chloride) 113 mls @ 200 mls/hr IV EDNOW ONE PRN Reason: Protocol Stop: 02/27/17 16:19 Last Admin: 02/27/17 16:02 Dose: 113 mls Sodium Chloride (Ns) 2,000 mls @ 4,000 mls/hr 30 ml/kg infuse over 30 min ( 2000 ml) IV EDNOW ONE PRN Reason: Protocol Stop: 02/27/17 16:15 Last Admin: 02/27/17 16:03 Dose: 2,000 mls Departure - Departure Disposition: [facility] Inpatient Acute Clinical Impression: Endocarditis Qualifiers: Endocarditis type: infective Infective endocarditis organism: unspecified organism Chronicity: unspecified Qualified Code(s): I33.0 - Acute and subacute infective endocarditis Condition: Serious
[2017-02-27 15:42] LABS: % IMMATURE GRANULYOCYTES 0.8 % (0.0-1.1); ABSOLUTE IMMATURE GRANULOCYTES 0.16 10^3/uL (0.00-0.10); ADD DIFF? NO; ADD MORPH? NO; ADD SCAN? NO; ATYPICAL LYMPHOCYTE FLAG 10 (0-99); FRAGMENT RBC FLAG 0 (0-99); HEMATOCRIT 41.4 % (40.0-51.0); HEMOGLOBIN 14.2 g/dL (13.7-17.5); LEFT SHIFT FLG 10 (0-99); LIPEMIA HEMOLYSIS FLAG 90 (0-99); MEAN CELL HEMOGLOBIN 28.6 pg (27.9-34.1); MEAN CELL HEMOGLOBIN CONCENTR. 34.3 g/dL (32.4-36.7); MEAN CELL VOLUME 83.5 fL (81.5-99.8); MEAN PLATELET VOLUME 9.1 fL (8.7-11.7); PLATELET CLUMPS FLAG 10 (0-99); PLATELET COUNT 184 10^3/uL (150-400); RED BLOOD CELL COUNT 4.96 10^6/uL (4.40-6.38); RED CELL DISTRIBUTION WIDTH 17.2 % (11.5-15.2)
[2017-02-27] MEDS ORDERED: NS 2,000 ML IV ONE (15:46)
[2017-02-27] MEDS ORDERED: NS IV ONE (15:46)
[2017-02-27] MEDS ORDERED: DAPTOMYCIN IV ONE (15:46)
[2017-02-27 15:51] LABS: INR 0.95 (0.83-1.16); PROTIME(PATIENT) 12.9 SEC (12.0-15.0)
[2017-02-27 15:52] LABS: APTT 31.6 SEC (23.0-38.0)
[2017-02-27 15:55] LABS: ANION GAP 16 mEq/L (8-16); BILIRUBIN,TOTAL 0.5 mg/dL (0.1-1.4); CALCIUM 9.5 mg/dL (8.5-10.4); CARBON DIOXIDE 23 mEq/l (22-31); CHLORIDE 96 mEq/L (97-110); CREATININE 0.6 mg/dL (0.7-1.3); GLOMERULAR FILTRATION RATE > 60; GLUCOSE 131 mg/dL (70-100); POTASSIUM 4.5 mEq/L (3.5-5.2); SODIUM 135 mEq/L (134-144)
[2017-02-27] MEDS ORDERED: ONDANSETRON 4 MG/2 ML VIAL IVP PRN (16:11)
[2017-02-27] MEDS ORDERED: ONDANSETRON DISINTEGRATING 4 MG TAB PO PRN (16:11)
[2017-02-27] MEDS ORDERED: ACETAMINOPHEN 325 MG TAB PO PRN (16:11)
[2017-02-27 16:19] LABS: COLOR YELLOW; LEUKOCYTE ESTERASE,URINE NEGATIVE (NEGATIVE); NITRITE,URINE NEGATIVE (NEGATIVE)
[2017-02-27] MEDS ORDERED: IOPAMIDOL (ISOVUE 370) 100 ML BTL IV ONE (16:20)
--- NOTE | 2017-02-27 16:22 | CPEKG ---
Heart Rate: 98 RR Interval: 612 P-R Interval: 160 QRSD Interval: 96 QT Interval: 348 QTC Interval: 445 P [place]: 49 QRS [place]: 43 T Wave [place]: 21 EKG Severity - NORMAL ECG - EKG Impression: SINUS RHYTHM Electronically Signed By: Jesus Valles 27-Feb-2017 16:27:35
[2017-02-27 16:37] LABS: ALBUMIN 4.5 g/dL (3.5-5.0); BILIRUBIN,TOTAL 0.4 mg/dL (0.1-1.4); BILIRUBIN-CONJUGATED 0.1 mg/dL (0.0-0.5); BILIRUBIN-UNCONJUGATED 0.3 mg/dL (0.0-1.1); TOTAL PROTEIN 8.3 g/dL (6.3-8.2)
[2017-02-27 16:38] LABS: LACGHOST ORDER
[2017-02-27] MEDS ORDERED: clonazePAM 0.5 MG TAB PO ONE (18:20)
--- NOTE | 2017-02-27 18:26 | GHP ---
[f rep st] HISTORY AND PHYSICAL DATE OF ADMISSION: 02/27/2017 CHIEF COMPLAINT: Staph haemolyticus endocarditis, acute on chronic chest pain, fever. 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 At that time echocardiogram demonstrated 2 vegetations on the septal leaf of the tricuspid valve with severe TR. During that stay,he was actively using IV drugs and he was seen by both ID and CT surgery and had planned for an elective valve replacement 2016. However, he became belligerent and declined to have surgery by Dr. Carbajal. There was an interdisciplinary conference including CT surgery, Infectious Disease, hospitalist, Case Management who agreed on discharge plan including continued IV daptomycin 650 mg daily via peripheral IV. He was seen on 02/24/[address] Tobar and repeat echo showed a progressive tricuspid valve vegetation and persistent TR as well as worsening heart failure. She discussed case with CT surgery and planned for 03/03/2017. During my interview, he complains of increased chest pain over past few weeks. It is sharp/crampy on the left side, but pain has moved to right side and his back. Pain improved with sitting up; worse with deep inspiration. Had a fever to 102 last night with sweats. He has had an abrupt onset of cough with green sputum and myalgias. He has chronic headaches, but has noticed more in the last 2 weeks. No neck stiffness. Denies nausea, vomiting, or diarrhea. No lower extremity edema. REVIEW OF SYSTEMS: I completed a 10-point review of systems, negative except as noted in HPI. PAST MEDICAL HISTORY: 1. Staph haemolyticus tricuspid valve endocarditis. 2. Severe tricuspid regurgitation. 3. Septic pulmonary emboli. 4. Anxiety. 5. Opiate/benzo dependency. 6. History of IV heroin and IV methamphetamine use. 7. Hepatitis C. PAST SURGICAL HISTORY: 1. Orbital bone reconstruction as well as plates. 2. Cholecystectomy. FAMILY HISTORY: Mother with hypertension. SOCIAL HISTORY: Is in skilled nursing. Smokes a pack a day of cigarettes for 4 years, has not been recently due to acute illness. Last smoked meth a month ago, used IV heroin previously. States that he last used IV meth 4 months ago. However, there was a witnessed episode here 02/09/2017. HOME MEDICATIONS: Daptomycin 650 mg IV daily. ALLERGIES: None. PHYSICAL EXAMINATION: VITAL SIGNS: Temperature 39.1, blood pressure 116/79, heart rate 100, respirations 16, 98% on room air. GENERAL: The patient is lying in bed, mildly diaphoretic. No acute distress, uncomfortable. HEENT: PERRLA. Dry mucous membranes. CARDIOVASCULAR: Tachycardic. Systolic murmur present. No peripheral edema. Tenderness over the left side of chest with palpation. ABDOMEN: Soft, nontender, nondistended. Positive bowel sounds. GENITOURINARY: No Reilly. SKIN: Warm, dry. No splint hemorrhages. NEURO: 2 through 12 intact. PSYCH: Alert and oriented x3. Anxious. EKG personally reviewed by me: Sinus tachycardia, prominent P waves. Echocardiogram 02/24/2017: Normal sized LV. EF is 63%. Moderately dilated RV. Normal LV function. Flattened IVC consistent with RVSP and/or volume overload. Severe TR. Large multilobular vegetation visualized on the septal leaflets. The anterior TV leaflet is now thickened with small vegetation, wide- open TR. The vegetation is 2.3 cm. Compared to echo 02/03/2017 TV vegetation is larger. Chest x-ray: Patchy opacity left lower lobe. CTA: Progressive septic emboli within the lungs associated with new thromboembolic disease in the left lower lobe and small foci of cavitary nodularity within the lower lungs bilaterally. Moderate mediastinal lymphadenopathy, unchanged. WBCs 19.1, hemoglobin 14, hematocrit 41, platelets 184. Coags within normal. Lactate 2.2, repeat 0.9. Sodium 135, potassium 4.5, chloride 96, carbon dioxide 23, creatinine 0.6, glucose 131, total bilirubin 0.4, AST 40, ALT 75, alkaline phosphatase 117, total protein 8.3, albumin is 4.5. , UA: 10-15 RBCs. Hepatitis C RNA 01/30/2017 greater than 2 million. Influenza negative. ASSESSMENT AND PLAN: 1. Sepsis: differential includes progressive endocarditis given enlarged vegetation on echocardiogram in 02/24. Also, had an abrupt onset of a fever, cough and sputum production with possible viral versus bacterial pneumonia. There was opacity noted on x-ray, but these are most likely septic emboli. Check full reps PCR, blood cultures pending. Continue IV daptomycin. Repeat echocardiogram is pending. 2. Staphylococcus haemolyticus endocarditis: Last positive blood culture was 01/25/2017. He is currently being treated with IV daptomycin 650 mg IV daily. Will resume this. Infectious Disease is following and will see while patient is here. Repeat echocardiogram. Dr. Carbajal plans for valve replacement on 03/03. 3. Acute chest pain: likely secondary to septic emboli. We will not provide opioids, but will treat with Toradol and Tylenol. 4. Fever: plan as above. 5. Progressive pulmonary septic emboli: goal is treat underlying cause. Cont IV abx and plan for surgery 03/03. No signs/sxs suggestive of cerebral emboli. 6. History of anxiety: was evaluated by Dr. Fink with Psychiatry in prior hospitalization. Does not recommend short-acting benzos given high risk for dependency. But, can give low-dose Xanax. Will give a one-time dose this evening. 7. Polysubstance abuse: denies recent use. h/o IV heroin, meth and THC. Unfortunately, he is high-risk of relapse and this is of great concern for recurrent infection. 8. Lactic acidosis: Secondary to acute illness. This resolved with IV fluids. 9. Leukocytosis: suspect due to progressive endocarditis. Plan as stated above. 10. Diet: Regular. 11. Deep venous thrombosis prophylaxis: Lovenox. DISPOSITION: Patient warrants inpatient admission given endocarditis, progressive chest pain requiring IV antibiotics and valve replacement. Plan was discussed with Dr. Jesus Valles and Dr. Henok Schultz with Infectious Disease. Critical care time spent: 60min reviewing prior labs, imaging, examining pt and d/w Dr. Schultz /[id number]/MODL MTDD
[2017-02-27] MEDS: diphenhydrAMINE 25 MG CAP PO PRN (18:32)
[2017-02-27] MEDS: MELATONIN 3 MG TAB PO SCH (20:50)
[2017-02-28] MEDS: diphenhydrAMINE 25 MG CAP PO PRN ×2 (00:14→22:38)
[2017-02-28 04:57] LABS: HEMATOCRIT 38.7 % (40.0-51.0); HEMOGLOBIN 12.5 g/dL (13.7-17.5); MEAN CELL HEMOGLOBIN 27.2 pg (27.9-34.1); MEAN CELL HEMOGLOBIN CONCENTR. 32.3 g/dL (32.4-36.7); MEAN CELL VOLUME 84.3 fL (81.5-99.8); RED BLOOD CELL COUNT 4.59 10^6/uL (4.40-6.38); RED CELL DISTRIBUTION WIDTH 17.2 % (11.5-15.2)
[2017-02-28 05:28] LABS: ANION GAP 16 mEq/L (8-16); CARBON DIOXIDE 22 mEq/l (22-31); CHLORIDE 99 mEq/L (97-110); CREATININE 0.6 mg/dL (0.7-1.3); GLOMERULAR FILTRATION RATE > 60; GLUCOSE 131 mg/dL (70-100); POTASSIUM 4.3 mEq/L (3.5-5.2); SODIUM 137 mEq/L (134-144)
--- NOTE | 2017-02-28 06:45 | PDMN ---
Medical Necessity Medical necessity: Pt meets INPT criteria per MD as of 02/27/17; est. LOS >2 MN for for eval/tx of sepsis, endocarditis, acute chest pain, acute fever, progressive pulmonary septic emboli; requiring IVAB, valve replacement pending per H&P.
[2017-02-28] MEDS: NS IV SCH (09:12)
[2017-02-28] MEDS: DAPTOMYCIN IV SCH (09:12)
[2017-02-28] MEDS: ENOXAPARIN 40 MG/0.4 ML SYR SC SCH (09:15)
[2017-02-28] MEDS ORDERED: DIAZEPAM 5 MG TAB PO ONE (09:15)
--- NOTE | 2017-02-28 09:26 | SOAPPROG ---
SOAP Progress Note Assessment/Plan: Assessment: Plan: 02/28/17 09:23 pt known to me no need for new echo, had one recently w enlarging veg, anticoag at DVT prophylaxis dose, no indication for full AC w recurrent embolic events from veg , surgery scheduled wednesday, will follow w you Objective: Vital Signs Temp Pulse Resp BP Pulse Ox 37.1 C 110 H 17 105/71 92 02/28/17 07:11 02/28/17 07:11 02/28/17 07:11 02/28/17 07:11 02/28/17 07:11 Microbiology 02/27/17 Unknown Respiratory Panel (PCR) - Final Nasal, Sinus - Swab No Organism Detected Laboratory Results 02/28/17 04:29 02/28/17 04:29 02/27/17 02/28/17 03/01/17 05:59 05:59 05:59 Intake Total 3450 Output Total 900 Balance 2550 PT 12.9 SEC (12.0-15.0) 02/27/17 15:30 INR 0.95 (0.83-1.16) 02/27/17 15:30 ICD10 Worksheet Patient Problems: Problems Problem Status Onset Endocarditis Acute Receiving intravenous antibiotic treatment as outpatient Acute
--- NOTE | 2017-02-28 10:19 | ASMTCMCOM ---
CM Note CM Note Notes: Patient admitted for valve replacement surgery 03/[address] Carbajal. He was previously admitted in and had various behavioral problems complicating his medical treatment. He was ultimately arrested at the hospital on 02/[address] [facility] Since that time, he has been receiving IV antibiotics in half-way, administered by [facility]. He was seen by Infectious Disease 02/24 and noted to have worsening vegetation on his tricuspid valve as well as worsening heart failure. He is currently c/o cough and fever. He will likely discharge back to the half-way. There is currently a deputy in the room with him, although the [employer] is trying to release him on [place]. He will go to the ICU post-op, and CM will follow. Date Signed: 02/28/2017 10:19 AM Electronically Signed By:Bianca Soriano RN
--- NOTE | 2017-02-28 11:00 | HOSPPROG ---
Hospitalist Progress Note Assessment/Plan: 31-year-old well known to this hospital for tricuspid endocarditis and ongoing drug use. He is admitted from the intermediate with increasing chest pain and recent evaluation in clinic noted worsening of his valve with increased pulmonary emboli. His main complaint today is pain. # tricuspid endocarditis, continue current regimen of daptomycin. Appreciate Infectious Disease and cardiac surgery. * Plan on valve surgery on March 03 * Will keep inpatient for pain control and stabilization prior to surgery # septic pulmonary emboli, does not need anticoagulation. But patient does have increased pain and will manage pain with Toradol and low-dose opioids while he awaits surgery. # anxiety, possible bipolar disorder reviewed previous chart and Dr. Fink is note from Psychiatry at that time she recommended twice daily Valium with a floating dose and will continue that at this time. # poly substance abuse currently smoking meth and marijuana # DVT prophylaxis on low-molecular weight heparin Subjective: Patient new to me chart reviewed from this hospitalization. Complains of severe chest pain with notable new pulmonary septic emboli. Increased anxiety as well. Objective: Vital Signs Temp Pulse Resp BP Pulse Ox 37.1 C 110 H 17 105/71 92 02/28/17 07:11 02/28/17 07:11 02/28/17 07:11 02/28/17 07:11 02/28/17 07:11 Microbiology 02/27/17 Unknown Respiratory Panel (PCR) - Final Nasal, Sinus - Swab No Organism Detected Laboratory Results 02/28/17 04:29 02/28/17 04:29 02/27/17 02/28/17 03/01/17 05:59 05:59 05:59 Intake Total 3450 Output Total 900 Balance 2550 PT 12.9 SEC (12.0-15.0) 02/27/17 15:30 INR 0.95 (0.83-1.16) 02/27/17 15:30 - Physical Exam Constitutional: chronically ill appearing, uncomfortable Eyes: PERRL, anicteric sclera, EOMI Ears, Nose, Mouth, Throat: moist mucous membranes Cardiovascular: regular rate and rhythym, systolic murmur Respiratory: no respiratory distress, clear to auscultation Gastrointestinal: normoactive bowel sounds, soft, non-tender abdomen Genitourinary: no bladder fullness Skin: warm Musculoskeletal: full muscle strength Neurologic: AAOx3 Psychiatric: anxious ICD10 Worksheet Patient Problems: Problems Problem Status Onset Receiving intravenous antibiotic treatment as outpatient Acute Endocarditis Acute
[2017-02-28] MEDS: KETOROLAC 30 MG/1 ML SDV IVP PRN ×2 (11:19→17:32)
[2017-02-28] MEDS: HYDROCODONE/APAP 5/325 TAB PO PRN ×3 (11:26→20:00)
--- NOTE | 2017-02-28 11:26 | PCMIDPN ---
Assessment/Plan: Assessment/Plan: * Tricuspid valve endocarditis due to Staphylococcus haemolyticus: See my note dated 02/27/2017 in [facility] (separate visit than admission visit) for details. Appreciate hospitalist service and cardiothoracic service care. No further fever since temperature to 39.1 on the infusion center yesterday. CT scan shows evidence of continued septic pulmonary emboli. Patient is scheduled for surgery Wednesday which will be necessary as failing to a resolve with medical management (enlarging vegetation, recurrent septic pulmonary emboli). Repeat blood cultures are pending. Will continue daptomycin as doubt has evolved drug resistance. If blood cultures were to be repeatedly positive, then would transition to vancomycin. 02/28/17 11:22 Subjective: Patient complains of persistent chest pain. Notes difficulty with sleeping. Objective: Vital Signs Temp Pulse Resp BP Pulse Ox 37.1 C 110 H 17 105/71 92 02/28/17 07:11 02/28/17 07:11 02/28/17 07:11 02/28/17 07:11 02/28/17 07:11 Microbiology 02/27/17 Unknown Respiratory Panel (PCR) - Final Nasal, Sinus - Swab No Organism Detected Laboratory Results 02/28/17 04:29 02/28/17 04:29 02/27/17 02/28/17 03/01/17 05:59 05:59 05:59 Intake Total 3450 Output Total 900 Balance 2550 Blood cultures x2 02/27/2017 pending Respiratory pathogen panel by PCR negative Chest CT reviewed showing evidence of new septic pulmonary emboli EKG with [place] 0.16 - Physical Exam General Appearance: alert, no apparent distress EENT: No thrush, No conjunctival petechiae Respiratory: crackles (Bilateral lower lung jacinto) Cardiac/Chest: tachycardia, systolic murmur Extremities: No inflammation Abdomen: non-tender, No distended Skin: No embolic lesions ICD10 Worksheet Patient Problems: Problems Problem Status Onset Endocarditis Acute Receiving intravenous antibiotic treatment as outpatient Acute
[2017-02-28] MEDS: DIAZEPAM 5 MG TAB PO PRN (11:30)
[2017-02-28] MEDS: traMADol 50 MG TAB PO PRN ×2 (13:04→22:38)
[2017-02-28] MEDS: DIAZEPAM 5 MG TAB PO SCH (20:00)
[2017-02-28] MEDS: MELATONIN 3 MG TAB PO SCH (20:00)
[2017-03-01] MEDS: HYDROCODONE/APAP 5/325 TAB PO PRN ×5 (00:08→20:34)
[2017-03-01] MEDS: KETOROLAC 30 MG/1 ML SDV IVP PRN ×4 (00:09→20:31)
[2017-03-01] MEDS: DIAZEPAM 5 MG TAB PO SCH ×3 (03:09→21:27)
[2017-03-01] MEDS: DIAZEPAM 5 MG TAB PO PRN (03:10)
[2017-03-01] MEDS: traMADol 50 MG TAB PO PRN ×3 (04:13→17:56)
[2017-03-01 04:24] LABS: % IMMATURE GRANULYOCYTES 1.3 % (0.0-1.1); ADD DIFF? NO; ADD MORPH? NO; ADD SCAN? NO; ATYPICAL LYMPHOCYTE FLAG 10 (0-99); FRAGMENT RBC FLAG 0 (0-99); HEMATOCRIT 43.7 % (40.0-51.0); LEFT SHIFT FLG 10 (0-99); LIPEMIA HEMOLYSIS FLAG 80 (0-99); MEAN CELL HEMOGLOBIN 27.7 pg (27.9-34.1); MEAN CELL VOLUME 86.5 fL (81.5-99.8); MEAN PLATELET VOLUME 10.2 fL (8.7-11.7); PLATELET CLUMPS FLAG 0 (0-99); PLATELET COUNT 210 10^3/uL (150-400); RED BLOOD CELL COUNT 5.05 10^6/uL (4.40-6.38); RED CELL DISTRIBUTION WIDTH 17.5 % (11.5-15.2)
[2017-03-01 04:29] LABS: ANION GAP 18 mEq/L (8-16); CALCIUM 9.2 mg/dL (8.5-10.4); CARBON DIOXIDE 21 mEq/l (22-31); CHLORIDE 99 mEq/L (97-110); CREATININE 0.8 mg/dL (0.7-1.3); GLOMERULAR FILTRATION RATE > 60; GLUCOSE 92 mg/dL (70-100); POTASSIUM 4.7 mEq/L (3.5-5.2); SODIUM 138 mEq/L (134-144)
[2017-03-01] MEDS: DAPTOMYCIN IV SCH (08:29)
[2017-03-01] MEDS: NS IV SCH (08:29)
[2017-03-01] MEDS: ENOXAPARIN 40 MG/0.4 ML SYR SC SCH (08:34)
--- NOTE | 2017-03-01 11:32 | HOSPPROG ---
Hospitalist Progress Note Assessment/Plan: 31-year-old well known to this hospital for tricuspid endocarditis and ongoing drug use. He is admitted from the residential with increasing chest pain and recent evaluation in clinic noted worsening of his valve with increased pulmonary emboli. He is sleeping and looks comfortable although wake up in says he is in pain # tricuspid endocarditis, continue current regimen of daptomycin. Appreciate Infectious Disease and cardiac surgery. * Plan on valve surgery on March 03 * Will keep inpatient for pain control and stabilization prior to surgery # septic pulmonary emboli, does not need anticoagulation. But patient does have increased pain and will manage pain with Toradol and low-dose opioids while he awaits surgery. # anxiety, possible bipolar disorder reviewed previous chart and Dr. Fink is note from Psychiatry at that time she recommended twice daily Valium with a floating dose and will continue that at this time. # poly substance abuse currently smoking meth and marijuana # DVT prophylaxis on low-molecular weight heparin Subjective: Patient is sleepy today continues to have some chest pain complaints but looks comfortable Objective: Vital Signs Temp Pulse Resp BP Pulse Ox 36.7 C 109 H 17 111/80 93 03/01/17 08:00 03/01/17 08:00 03/01/17 08:00 03/01/17 08:00 03/01/17 08:00 Laboratory Results 03/01/17 03:34 03/01/17 03:34 02/28/17 03/01/17 03/02/17 05:59 05:59 05:59 Intake Total 3450 3000 Output Total 900 Balance 2550 3000 PT 12.9 SEC (12.0-15.0) 02/27/17 15:30 INR 0.95 (0.83-1.16) 02/27/17 15:30 - Physical Exam Constitutional: chronically ill appearing, uncomfortable Eyes: PERRL Cardiovascular: regular rate and rhythym, systolic murmur Respiratory: no respiratory distress, clear to auscultation ICD10 Worksheet Patient Problems: Problems Problem Status Onset Receiving intravenous antibiotic treatment as outpatient Acute Endocarditis Acute
--- NOTE | 2017-03-01 17:58 | PCMIDPN ---
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 Patient remains on daptomycin intravenously. He was readmitted secondary to fever but this has not repeated as of yet. Plan is for the patient to go for valve replacement on Wednesday. In the meantime we will keep up is daptomycin daily therapy. He generally looks good clinically today. Plan: 1. Continue IV daptomycin daily. 2. Follow fever curve and clinical course. 3. Prepare patient for surgery on Wednesday. 03/01/17 17:55 Subjective: Patient is resting in his hospital bed. He denies any significant pain. No repeat a fever from yesterday. Objective: Daptomycin # 2 Vital Signs Temp Pulse Resp BP Pulse Ox 36.6 C 121 H 18 114/90 H 91 L 03/01/17 15:17 03/01/17 15:17 03/01/17 15:17 03/01/17 15:17 03/01/17 15:17 Laboratory Results 03/01/17 03:34 03/01/17 03:34 02/28/17 03/01/17 03/02/17 05:59 05:59 05:59 Intake Total 3450 3000 1440 Output Total 900 Balance 2550 3000 1440 - Physical Exam General Appearance: WD/WN, alert, no apparent distress, thin Respiratory: lungs clear, normal breath sounds, No respiratory distress Cardiac/Chest: regular rate, rhythm Skin: normal color, warm/dry, No rash Neuro/Psych: alert, normal mood/affect, oriented x 3 ICD10 Worksheet Patient Problems: Problems Problem Status Onset Endocarditis Acute Receiving intravenous antibiotic treatment as outpatient Acute
[2017-03-01] MEDS: diphenhydrAMINE 25 MG CAP PO PRN (21:27)
[2017-03-01] MEDS: MELATONIN 3 MG TAB PO SCH (21:27)
[2017-03-02] MEDS: HYDROCODONE/APAP 5/325 TAB PO PRN ×6 (00:43→20:21)
[2017-03-02] MEDS: KETOROLAC 30 MG/1 ML SDV IVP PRN ×4 (03:16→21:48)
[2017-03-02] MEDS: NS IV SCH (08:18)
[2017-03-02] MEDS: DAPTOMYCIN IV SCH (08:18)
[2017-03-02] MEDS: DIAZEPAM 5 MG TAB PO SCH ×2 (08:23→20:22)
[2017-03-02] MEDS: ENOXAPARIN 40 MG/0.4 ML SYR SC SCH (08:25)
[2017-03-02] MEDS: DIAZEPAM 5 MG TAB PO PRN (12:27)
--- NOTE | 2017-03-02 14:57 | PCMIDPN ---
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 2nd episode of endocarditis at the same position although different organism (group a strep). Repeat ECHO today showed worsening TV veg and persistent severe TR and worsening RHF supporting continued need for surgical management. Over the weekend my partner Dr. Schultz saw the patient for fever in infusion center and patient was readmitted. Now labs show worsening leukocytosis and chest CT shows new septic emboli all corroborate need for surgical management. Significant concern for leni- valvular abscess. --appreciate CT surgery, Planned operative management tomorrow. --Continue daptomycin 10 mg/ kg, 650 mg. Patient is slightly heavier than initial time of dosing at 68 kg --may need prolonged IV antibiotic post op Subjective: patient reporting very tired, sleeping all day. Also c/o CP. stating he is grateful for surgery tomorrow and will cooperate with NPO Objective: Vital Signs Temp Pulse Resp BP Pulse Ox 36.4 C 103 H 16 104/65 91 L 03/02/17 11:41 03/02/17 11:41 03/02/17 11:41 03/02/17 11:41 03/02/17 11:41 Laboratory Results 03/01/17 03:34 03/01/17 03:34 03/01/17 03/02/17 03/03/17 05:59 05:59 05:59 Intake Total 3000 2920 440 Balance 3000 2920 440 - Physical Exam General Appearance: alert, apparent distress (mild) EENT: pale conjunctiva Respiratory: other (decreased bs bases), No accessory muscle use Cardiac/Chest: tachycardia, systolic murmur Skin: diaphoresis, No rash Neuro/Psych: alert, other (appropriate) - Time Spent With Patient Time Spent with Patient: greater than 25 minutes Time Spent with Patient: Greater than 25 minutes spent on this patients care, greater than 50% of time spent counseling, educating, and coordinating care regarding the above mentioned plan. ICD10 Worksheet Patient Problems: Problems Problem Status Onset Endocarditis Acute Receiving intravenous antibiotic treatment as outpatient Acute
--- NOTE | 2017-03-02 15:01 | HOSPPROG ---
Hospitalist Progress Note Assessment/Plan: 31-year-old well known to this hospital for tricuspid endocarditis and ongoing drug use. He is admitted from the snf with increasing chest pain and recent evaluation in clinic noted worsening of his valve with increased pulmonary emboli. States his pain is controlled. He is sleeping well. # tricuspid endocarditis, continue current regimen of daptomycin. Appreciate Infectious Disease and cardiac surgery. * Plan on valve surgery on March 03 * Will keep inpatient for pain control and stabilization prior to surgery # septic pulmonary emboli, does not need anticoagulation. But patient does have increased pain and will manage pain with Toradol and low-dose opioids while he awaits surgery. # anxiety, possible bipolar disorder reviewed previous chart and Dr. Fink is note from Psychiatry at that time she recommended twice daily Valium with a floating dose and will continue that at this time. # poly substance abuse currently smoking meth and marijuana # DVT prophylaxis on low-molecular weight heparin Subjective: sleeping a lot and states the pain meds are helping his comfort level. Objective: Vital Signs Temp Pulse Resp BP Pulse Ox 36.4 C 103 H 16 104/65 91 L 03/02/17 11:41 03/02/17 11:41 03/02/17 11:41 03/02/17 11:41 03/02/17 11:41 Laboratory Results 03/01/17 03:34 03/01/17 03:34 03/01/17 03/02/17 03/03/17 05:59 05:59 05:59 Intake Total 3000 2920 440 Balance 3000 2920 440 PT 12.9 SEC (12.0-15.0) 02/27/17 15:30 INR 0.95 (0.83-1.16) 02/27/17 15:30 - Physical Exam Constitutional: chronically ill appearing, uncomfortable Cardiovascular: regular rate and rhythym, systolic murmur Respiratory: no respiratory distress, clear to auscultation Psychiatric: anxious ICD10 Worksheet Patient Problems: Problems Problem Status Onset Receiving intravenous antibiotic treatment as outpatient Acute Endocarditis Acute
[2017-03-02] MEDS: traMADol 50 MG TAB PO PRN (18:19)
[2017-03-02] MEDS: MELATONIN 3 MG TAB PO SCH (20:21)
[2017-03-02] MEDS: MUPIROCIN 2% 22 GM OINT NS SCH (20:22)
[2017-03-02] MEDS ORDERED: CHLORHEXIDINE GLUC HIBICLENS 118 ML BTL TP SCH (21:00)
[2017-03-02] MEDS: diphenhydrAMINE 25 MG CAP PO PRN (23:10)
[2017-03-03] MEDS: HYDROCODONE/APAP 5/325 TAB PO PRN ×3 (00:23→07:57)
[2017-03-03] MEDS: DIAZEPAM 5 MG TAB PO PRN (00:23)
[2017-03-03] MEDS: traMADol 50 MG TAB PO PRN ×2 (00:24→06:42)
[2017-03-03] MEDS: KETOROLAC 30 MG/1 ML SDV IVP PRN ×3 (04:21→19:44)
[2017-03-03] MEDS ORDERED: ALBUMIN 5% 250 ML BOTTLE IV ONE ×2 (06:49→14:35)
[2017-03-03] MEDS ORDERED: PROTAMINE SULFATE 50 MG/5 ML VIAL IVP ONE (06:49)
[2017-03-03] MEDS ORDERED: CALCIUM CHLORIDE 1 GM/10 ML INJ ONE (06:50)
[2017-03-03] MEDS ORDERED: DOPamine/DEXTROSE/250 ML BAG IV ONE (06:50)
[2017-03-03] MEDS ORDERED: AMIODARONE HCL 150 MG/3 ML VIAL ONE (06:50)
[2017-03-03] MEDS ORDERED: niCARdipine/NACL/200 ML BAG IV ONE (06:50)
[2017-03-03] MEDS ORDERED: CITRATE DEXTROSE SOLN 500 ML BAG ONE (06:50)
[2017-03-03] MEDS ORDERED: MILRINONE/DEXTROSE/100 ML BAG IV ONE (06:50)
[2017-03-03] MEDS ORDERED: NA BICARBONATE 50 MEQ/50 ML VIAL ONE (06:50)
[2017-03-03] MEDS ORDERED: LIDOCAINE 2% 100 MG/5 ML SYR ONE (06:50)
[2017-03-03] MEDS ORDERED: ceFAZolin 1 GM VIAL ONE ×2 (06:51→14:18)
[2017-03-03] MEDS ORDERED: methylPREDNISolone SOD SUCC 1 GM/8 ML VIAL ONE (06:51)
[2017-03-03] MEDS ORDERED: HEPARIN 10,000 UNIT/10 ML MDV ONE (06:51)
[2017-03-03] MEDS ORDERED: MAGNESIUM SULFATE 1 GM/2 ML VIAL ONE (06:51)
[2017-03-03] MEDS ORDERED: ADENOSINE 6 MG/2 ML VIAL ONE (06:51)
[2017-03-03] MEDS ORDERED: niCARdipine/NACL 200 ML IV ONE (07:00)
[2017-03-03] MEDS ORDERED: NOREPINEPHRINE BITARTRATE 16 MG in NS 250 ML IV ONE (07:00)
[2017-03-03] MEDS ORDERED: MANNITOL 25% 12.5 GM/50 ML VIAL IVP ONE (07:00)
[2017-03-03] MEDS ORDERED: CITRATE DEXTROSE SOLN 500 ML BAG MISC ONE (07:00)
[2017-03-03] MEDS ORDERED: PHENYLEPHRINE HCL 50 MG in NS 250 ML IV ONE (07:00)
[2017-03-03] MEDS ORDERED: AMINOCAPROIC ACID 5 GM/20 ML VIAL IV ONE (07:00)
[2017-03-03] MEDS ORDERED: SODIUM BICARBONATE 20 MEQ, LIDOCAINE 1% 10 ML in NORMOSOL-R 1,000 ML MISC ONE (07:00)
[2017-03-03] MEDS ORDERED: INSULIN REGULAR HUMAN 100 UNIT in NS 100 ML IV ONE (07:00)
[2017-03-03] MEDS: DIAZEPAM 5 MG TAB PO SCH (07:57)
[2017-03-03] MEDS: MUPIROCIN 2% 22 GM OINT NS SCH ×2 (07:58→21:53)
--- NOTE | 2017-03-03 08:40 | HOSPPROG ---
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 Valve surgery today #Leukocytosis: due to endocarditis. Resp PCR and blood cultures negative #Septic pulmonary emboli: plan as above #Chest pain: due to emboli. PRN Toradol #Polysubstance abuse #Anxiety: Valium BID #DVT ppx: Lovenox Disp: cont inpatient admission for IV abx, valve replacement Subjective: chest pain Objective: Vital Signs Temp Pulse Resp BP Pulse Ox 36.6 C 105 H 16 132/74 H 90 L 03/03/17 04:00 03/03/17 04:00 03/03/17 04:00 03/03/17 04:00 03/03/17 04:00 Laboratory Results 03/01/17 03:34 03/01/17 03:34 03/02/17 03/03/17 03/04/17 05:59 05:59 05:59 Intake Total 2920 2600 Balance 2920 2600 PT 12.9 SEC (12.0-15.0) 02/27/17 15:30 INR 0.95 (0.83-1.16) 02/27/17 15:30 - Physical Exam Constitutional: uncomfortable Eyes: PERRL Ears, Nose, Mouth, Throat: moist mucous membranes Cardiovascular: regular rate and rhythym, systolic murmur, other (TTP over chest ) Respiratory: no respiratory distress Gastrointestinal: normoactive bowel sounds Genitourinary: no bladder fullness Skin: warm Musculoskeletal: full muscle strength Neurologic: AAOx3, CN II-XII Intact Psychiatric: interacting appropriately ICD10 Worksheet Patient Problems: Problems Problem Status Onset Endocarditis Acute Receiving intravenous antibiotic treatment as outpatient Acute
[2017-03-03] MEDS: DAPTOMYCIN IV SCH (10:20)
[2017-03-03] MEDS: NS IV SCH (10:20)
[2017-03-03] MEDS ORDERED: MIDAZOLAM 2 MG/2 ML VIAL IVP ONE (10:47)
[2017-03-03] MEDS ORDERED: ceFAZolin 2 GM/SWFI 20 ML SYR IVP ONE (10:51)
--- NOTE | 2017-03-03 10:51 | PDANEPAE ---
ANE History of Present Illness 31 yo for TVR ANE Past Medical History - Cardiovascular History Hx CHF / Valvular Disease: Yes - Pulmonary History Hx Oxygen in Use at Home: No Hx Sleep Apnea: No Sleep Apnea Screening Result - Last Documented: Negative - Endocrine History Hx Diabetes: No - Chronic Pain History Chronic Pain: No ANE Review of Systems Review of Systems: - Exercise capacity METS (RN): 4 METS ANE Patient History - Allergies Allergies/Adverse Reactions: No Known Allergies Allergy (Verified 02/19/17 17:48) - Home Medications Home medications: home medication list seen and reviewed Home Medications: DAPTOmycin [Cubicin 500mg vial (*)] 650 mg IV DAILY 02/27/17 [Last Taken ] - NPO status NPO Since - Liquids (Date): 03/03/17 NPO Since - Liquids (Time): 00:00 NPO Since - Solids (Date): 03/03/17 NPO Since - Solids (Time): 00:00 - Anes Hx Anes Hx: no prior problems - Smoking Hx Smoking Status: Current some day smoker ANE Labs/Vital Signs - Labs Result Diagrams: 03/01/17 03:34 03/01/17 03:34 - Vital Signs Blood Pressure: 106/75 Heart Rate: 102 Respiratory Rate: 20 O2 Sat (%): 90 Height: 5 ft 9 in Weight: 70.505 kg ANE Physical Exam - Airway Neck exam: FROM Mallampati Score: Class 2 Mouth exam: poor dentition - Pulmonary Pulmonary: no respiratory distress - Cardiovascular Cardiovascular: regular rate and rhythym - ASA Status ASA Status: III ANE Anesthesia Plan Anesthesia Plan: general endotracheal anesthesia Lines/Monitors: arterial line, central line, BRITTANY
[2017-03-03] MEDS ORDERED: fentaNYL 250 MCG/5 ML INJ ONE (11:00)
[2017-03-03] MEDS ORDERED: REMIFENTANIL HCL 1 MG VIAL ONE (11:00)
[2017-03-03] MEDS ORDERED: DEXMEDETOMIDINE HCL 400 MCG in NS 100 ML IV SCH (11:00)
[2017-03-03] MEDS ORDERED: PROPOFOL/EMULSION 500 MG/50 ML BOTTLE IV ONE ×2 (11:00→14:43)
--- NOTE | 2017-03-03 12:02 | PDHPUP ---
History & Physical Update H&P update statement: This history and physical update is based on an assessment of the patient which was completed after admission or registration (within 24 hours), but prior to the surgery/procedure.
[2017-03-03] MEDS ORDERED: HYDROmorphONE/DILAUDID 2 MG/ML INJ ONE ×2 (13:58→15:22)
[2017-03-03] MEDS: BUPIVACAINE 0.25% 30 ML SDV ONE ×2 (14:18→16:22)
[2017-03-03] MEDS ORDERED: MAGNESIUM SULF 2 GM/WATER 50 ML BAG IV ONE (14:37)
[2017-03-03] MEDS ORDERED: VASOPRESSIN 20 UNIT/ML VIAL ONE (15:04)
[2017-03-03] MEDS ORDERED: ALBUMIN 5% 250 ML IV PRN (16:04)
[2017-03-03] MEDS ORDERED: D50W 25 GM/50 ML SYR IVP PRN (16:04)
[2017-03-03] MEDS ORDERED: LACTULOSE 20 GM/30 ML UDCUP PO PRN (16:04)
[2017-03-03] MEDS ORDERED: PANTOPRAZOLE SODIUM 40 MG VIAL IVP ONE (16:04)
[2017-03-03] MEDS ORDERED: SODIUM CL NASAL 45 ML BTL EACHNARE PRN (16:04)
[2017-03-03] MEDS ORDERED: ACETAMINOPHEN 650 MG SUPP PR PRN (16:04)
[2017-03-03] MEDS ORDERED: MAGNESIUM HYDROXIDE 30 ML UDCUP PO PRN (16:04)
[2017-03-03] MEDS ORDERED: MEPERIDINE 25 MG/ML SYR IVP PRN (16:04)
[2017-03-03] MEDS ORDERED: CEPACOL LOZENGE PO PRN (16:04)
[2017-03-03] MEDS ORDERED: MAGNESIUM SULF 2 GM/WATER 50 ML IV ONE (16:04)
[2017-03-03] MEDS ORDERED: BISACODYL 10 MG SUPP PR PRN (16:04)
[2017-03-03] MEDS ORDERED: POLYETHYLENE GLYCOL 3350 17 GM PKT PO PRN (16:04)
[2017-03-03] MEDS ORDERED: METOCLOPRAMIDE 10 MG/2 ML VIAL IVP PRN (16:04)
[2017-03-03] MEDS ORDERED: POTASSIUM Cl (KCl) 50 ML IV PRN (16:04)
[2017-03-03] MEDS ORDERED: NS 1,000 ML IV SCH (16:15)
[2017-03-03] MEDS ORDERED: INSULIN REGULAR HUMAN 100 UNIT in NS 100 ML IV SCH (16:30)
[2017-03-03] MEDS: NOREPINEPHRINE BITARTRATE 16 MG in NS 250 ML IV SCH (16:52)
[2017-03-03] MEDS: MILRINONE/DEXTROSE 100 ML IV SCH ×2 (16:53→22:00)
--- NOTE | 2017-03-03 17:11 | CPEKG ---
Heart Rate: 90 RR Interval: 667 P-R Interval: 152 QRSD Interval: 138 QT Interval: 428 QTC Interval: 524 P [place]: 55 QRS [place]: 71 T Wave [place]: 7 EKG Severity - ABNORMAL ECG - EKG Impression: SINUS RHYTHM EKG Impression: RBBB COMPARED TO PRIOR RBBB IS NEW Electronically Signed By: Ricardo Brown 03-Mar-2017 23:14:56
[2017-03-03] MEDS: fentaNYL 75 MCG PATCH TD SCH (17:18)
--- NOTE | 2017-03-03 18:05 | POSTANESTH ---
Post Anesthetic Evaluation Cardiovascular Status: Tx Hyper/Hypo-tension Respiratory Status: Other, See Comment Level of Consciousness/Mental Status: Unconscious Pain Control: Adequate, Prn Tx Ordered Nausea/Vomiting Control: Adequate, Prn Tx Ordered Complications Possibly Related to Anesthesia: None Noted (on vent,sedated)
[2017-03-03 19:14] LABS: CALCULATED OXYGEN SATURATION 99 % (92-95)
[2017-03-03] MEDS: DEXMEDETOMIDINE IN 0.9 % NACL 100 ML IV SCH ×2 (19:29→23:16)
[2017-03-03] MEDS: MELATONIN 3 MG TAB PO SCH (21:04)
[2017-03-04] MEDS: KETOROLAC 30 MG/1 ML SDV IVP PRN ×5 (00:10→23:42)
[2017-03-04] MEDS: NOREPINEPHRINE BITARTRATE 16 MG in NS 250 ML IV SCH (01:56)
[2017-03-04] MEDS: DEXMEDETOMIDINE IN 0.9 % NACL 100 ML IV SCH ×4 (02:40→19:05)
[2017-03-04 04:14] LABS: HEMATOCRIT 30.2 % (40.0-51.0); HEMOGLOBIN 10.5 g/dL (13.7-17.5); MEAN CELL HEMOGLOBIN 28.7 pg (27.9-34.1); MEAN CELL HEMOGLOBIN CONCENTR. 34.8 g/dL (32.4-36.7); MEAN CELL VOLUME 82.5 fL (81.5-99.8); RED BLOOD CELL COUNT 3.66 10^6/uL (4.40-6.38); RED CELL DISTRIBUTION WIDTH 15.9 % (11.5-15.2)
[2017-03-04 04:25] LABS: BASE EXCESS 0.5 mEq/L (-2.5-2.5); BICARBONATE 24 mEq/L (22-26); MEASURED OXYGEN SATURATION 96 % (92-95); PCO2 37 mmHg (34-38); PO2 84 mmHg (65-75); TCO2 25 mEq/L (23-27)
[2017-03-04 04:26] LABS: SIMV YES
[2017-03-04 04:27] LABS: END TIDAL CO2 51; O2 CONCENTRATIION 40 % (0-100); P/F RATIO 210 RATIO; PATIENT RATE 20; PRESSURE SUPPORT 7
[2017-03-04 04:43] LABS: ANION GAP 14 mEq/L (8-16); CALCIUM 8.4 mg/dL (8.5-10.4); CARBON DIOXIDE 24 mEq/l (22-31); CHLORIDE 105 mEq/L (97-110); CREATININE 0.6 mg/dL (0.7-1.3); GLOMERULAR FILTRATION RATE > 60; GLUCOSE 120 mg/dL (70-100); POTASSIUM 4.9 mEq/L (3.5-5.2); SODIUM 143 mEq/L (134-144)
[2017-03-04 05:36] LABS: BASE EXCESS 0.9 mEq/L (-2.5-2.5); BICARBONATE 25 mEq/L (22-26); MEASURED OXYGEN SATURATION 97 % (92-95); PCO2 40 mmHg (34-38); PO2 92 mmHg (65-75); TCO2 26 mEq/L (23-27)
[2017-03-04 05:37] LABS: CPAP YES; END TIDAL CO2 60; O2 CONCENTRATIION 40 % (0-100); P/F RATIO 230 RATIO; PATIENT RATE 16; PRESSURE SUPPORT 7
--- NOTE | 2017-03-04 06:48 | SOAPPROG ---
SOAP Progress Note Assessment/Plan: POD #1: TV replacement with #27 [place] bioprosthesis Tricuspid valve Staph haemolyticus endocarditis with right heart failure, severe TR, and septic pulmonary emboli s/p TVR - Pt to be extubated now - Wean Levophed as tolerated, Milrinone to be stopped - Plan for Coumadin for 3 months duration - ABX as per ID Acute blood loss anemia - Stable s/p 1U of PRBC Polysubstance abuse - Continue supportive care Subjective: Wants tube removed. Objective: Vital Signs Temp Pulse Resp BP Pulse Ox 36.8 C 62 18 118/73 100 03/04/17 05:55 03/04/17 05:55 03/04/17 05:55 03/04/17 05:55 03/04/17 05:55 Laboratory Results 03/04/17 04:00 03/04/17 04:00 03/03/17 03/04/17 03/05/17 05:59 05:59 05:59 Intake Total 2600 3073.8 Output Total 1870 Balance 2600 1203.8 PT 12.9 SEC (12.0-15.0) 02/27/17 15:30 INR 0.95 (0.83-1.16) 02/27/17 15:30 Physical Exam - Physical Exam General Appearance: alert, no apparent distress EENT: No scleral icterus (R), No scleral icterus (L) Neck: normal inspection Respiratory: No respiratory distress Cardiac/Chest: regular rate, rhythm Abdomen: non-tender, soft, No distended Skin: normal color, warm/dry Extremities: No pedal edema Neuro/Psych: no motor/sensory deficits, alert, normal mood/affect ICD10 Worksheet Patient Problems: Problems Problem Status Onset Endocarditis Acute Receiving intravenous antibiotic treatment as outpatient Acute
--- NOTE | 2017-03-04 08:44 | PCMIDPN ---
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 Now s/p TVR, doing well postoperatively. Gram stain of valve just shows PMNs. 02/27 blood cultures remain negative. White count decreased to 12.9 from 22; creatinine stable at 0.6 --continue high-dose daptomycin at 10 milligrams/kilogram. On daptomycin due to difficulty maintaining adequate levels with Vancomycin IV and convenience of outpatient therapy. No contraindication to resuming high-dose vancomycin while in house. Daptomycin ROSETTA < 1. Vancomycin ROSETTA equal to 1 --follow-up on valve culture and path reports. --duration of IV antibiotics postoperatively 4-6 weeks. Therapy will have to be under observation due to h/o drug use Medications Daptomycin 650 mg IV daily Subjective: Patient complaining of chest pressure associated with lateral chest incision. Also complaining of Caraballo. Requesting pain medicines. Overall appreciative of medical care. Objective: Vital Signs Temp Pulse Resp BP Pulse Ox 36.4 C 65 22 H 124/73 H 93 03/04/17 07:59 03/04/17 07:59 03/04/17 07:59 03/04/17 07:59 03/04/17 07:59 Microbiology 03/03/17 13:50 Gram Stain - Final Heart - Anaerobic Tube/Swab Laboratory Results 03/04/17 04:00 03/04/17 04:00 03/03/17 03/04/17 03/05/17 05:59 05:59 05:59 Intake Total 2600 3073.8 Output Total 1870 Balance 2600 1203.8 - Physical Exam General Appearance: alert, no apparent distress EENT: pale conjunctiva, No scleral icterus, No thrush Respiratory: other (Decreased breath sounds in the bases), No accessory muscle use Cardiac/Chest: regular rate, rhythm, other (Resolution of systolic murmur) Extremities: No pedal edema Abdomen: non-tender, soft Male Genitalia: caraballo, other (Right inguinal incision C/D/I) Skin: diaphoresis, No rash Neuro/Psych: alert, normal mood/affect, oriented x 3 - Line/s other Lines: other (Right IJ), No drainage, No erythema - Time Spent With Patient Time Spent with Patient: greater than 35 minutes Time Spent with Patient: Greater than 35 minutes spent on this patients care, greater than 50% of time spent counseling, educating, and coordinating care regarding the above mentioned plan. ICD10 Worksheet Patient Problems: Problems Problem Status Onset Endocarditis Acute Receiving intravenous antibiotic treatment as outpatient Acute
[2017-03-04] MEDS ORDERED: fentaNYL 25 MCG PATCH TD SCH (08:45)
[2017-03-04] MEDS ORDERED: ASPIRIN 81 MG CHEWABLE TAB TUBE PRN (09:00)
[2017-03-04] MEDS: PANTOPRAZOLE SODIUM 40 MG TAB PO SCH (11:13)
[2017-03-04] MEDS: ASPIRIN 81 MG CHEWABLE TAB PO SCH (11:13)
--- NOTE | 2017-03-04 11:49 | HOSPPROG ---
Hospitalist Progress Note Assessment/Plan: #Staph haemolyticus endocarditis with severe TR: POD #1 mitral replacement, tricuspid annuloplasty -3 months coumadin -IV Daptomycin #Acute hypoxic resp failure: extubated this morning #Acute blood loss anemia: s/p 1 unit #Leukocytosis: resolved. Due to endocarditis. Resp PCR and blood cultures negative #Septic pulmonary emboli: plan as above #Chest pain: due to emboli. PRN Toradol #Polysubstance abuse: counseled on cessation #Anxiety: Valium BID #Diet: regular #DVT ppx: coumadin #Disp: warrants inpt admission with valve replacement Subjective: "chest hurts, anastacio with breathing" Objective: Vital Signs Temp Pulse Resp BP Pulse Ox 36.1 C 79 20 107/63 94 03/04/17 09:00 03/04/17 11:00 03/04/17 11:00 03/04/17 11:00 03/04/17 11:00 Microbiology 03/03/17 13:50 Gram Stain - Final Heart - Anaerobic Tube/Swab Laboratory Results 03/04/17 04:00 03/04/17 04:00 03/03/17 03/04/17 03/05/17 05:59 05:59 05:59 Intake Total 2600 3073.8 178 Output Total 1870 140 Balance 2600 1203.8 38 PT 12.9 SEC (12.0-15.0) 02/27/17 15:30 INR 0.95 (0.83-1.16) 02/27/17 15:30 - Physical Exam Constitutional: other (tearful) Eyes: PERRL Ears, Nose, Mouth, Throat: moist mucous membranes, hearing normal Cardiovascular: regular rate and rhythym, edema (trace ankle edema), other ( right chest drain in place with sanginous drainage) Respiratory: no respiratory distress Gastrointestinal: normoactive bowel sounds Genitourinary: no bladder fullness Skin: warm Neurologic: CN II-XII Intact, other (sedated on Precedex) Psychiatric: depressed, flat affect, agitated, other (tearful) ICD10 Worksheet Patient Problems: Problems Problem Status Onset Endocarditis Acute Receiving intravenous antibiotic treatment as outpatient Acute
[2017-03-04] MEDS: ENOXAPARIN 40 MG/0.4 ML SYR SC SCH (11:51)
[2017-03-04] MEDS: MUPIROCIN 2% 22 GM OINT NS SCH ×2 (11:55→21:31)
[2017-03-04] MEDS: HYDROCODONE/APAP 5/325 TAB PO PRN ×3 (12:10→23:40)
--- NOTE | 2017-03-04 12:16 | ASMTCMCOM ---
CM Note CM Note Notes: Pt. had heart valve replacement surgery. Per rounds today, Pt. likely to remain in ICU with a sitter due to his behavioral problems and drug use at [facility] in the past. CM met w/ ID today who plans for prolonged IV antibiotics. Once Pt. is stabilized from a cardiac point of view, CM should investigate whether Pt. will return to the custody of the [facility] in [place] to receive IV antibiotics there (as in the past) or have Php Mysql Developer bring him to [facility] infusion center. If d/c'ed homeless with no planned incarceration, Pt. will need to stay at [facility] for the course of his IV antibiotic treatment. Pt. may also need prolonged coumadin orally, but would put him at risk for bleeding. Per CM colleague, Pt. has burned bridges with his mother who lives in [place] and she is not interested in coming to help where she did before. Pt. w/ mood swings and often manipulative per staff. Pt. has a lot of anxiety. Upon asking, staff cannot recollect Pt. ever putting his hands on staff here. Has had charges of assault in past. CM to follow for d/c POC. Date Signed: 03/04/2017 12:15 PM Electronically Signed By:Porsha Jackson LCSW
[2017-03-04] MEDS: NS IV SCH (12:36)
[2017-03-04] MEDS: DAPTOMYCIN IV SCH (12:36)
[2017-03-04] MEDS: DIAZEPAM 5 MG TAB PO PRN ×2 (13:40→21:31)
--- NOTE | 2017-03-04 15:22 | PDINTPN ---
Burr Grinder Progress Note Assessment/Plan: Assessment: Plan: Subjective: C/O chest pain at surgical site; feels that he can't breath. Objective: Vital Signs Temp Pulse Resp BP Pulse Ox 36.1 C 80 26 H 93/54 L 96 03/04/17 09:00 03/04/17 15:00 03/04/17 15:00 03/04/17 15:00 03/04/17 15:00 Microbiology 03/03/17 13:50 Gram Stain - Final Heart - Anaerobic Tube/Swab Laboratory Results 03/04/17 04:00 03/04/17 04:00 03/03/17 03/04/17 03/05/17 05:59 05:59 05:59 Intake Total 2600 3073.8 578 Output Total 1870 140 Balance 2600 1203.8 438 PT 12.9 SEC (12.0-15.0) 02/27/17 15:30 INR 0.95 (0.83-1.16) 02/27/17 15:30 CXR: Shallow inspiration, elevated right diaphragm. Images reviewed by me. Physical Exam - Physical Exam General Appearance: alert, no apparent distress EENT: normal ENT inspection Neck: normal inspection Respiratory: lungs clear, normal breath sounds Cardiac/Chest: regular rate, rhythm, No edema Abdomen: normal bowel sounds, non-tender Skin: normal color, warm/dry Extremities: normal inspection Neuro/Psych: alert, normal mood/affect, oriented x 3 ICD10 Worksheet Patient Problems: Problems Problem Status Onset Endocarditis Acute Receiving intravenous antibiotic treatment as outpatient Acute
[2017-03-04] MEDS ORDERED: ALBUMIN 5% 250 ML BOTTLE IV ONE (16:36)
[2017-03-04] MEDS ORDERED: ALBUMIN 5% 250 ML IV ONE (17:00)
[2017-03-04 17:42] LABS: POTASSIUM 4.4 mEq/L (3.5-5.2)
[2017-03-04] MEDS: MELATONIN 3 MG TAB PO SCH (21:31)
[2017-03-04] MEDS ORDERED: FUROSEMIDE 40 MG/4 ML VIAL IVP ONE (21:45)
[2017-03-05] MEDS: DEXMEDETOMIDINE IN 0.9 % NACL 100 ML IV SCH (00:04)
[2017-03-05 00:24] LABS: POTASSIUM 4.6 mEq/L (3.5-5.2)
[2017-03-05] MEDS: DIAZEPAM 5 MG TAB PO PRN ×3 (03:40→21:59)
[2017-03-05] MEDS: HYDROCODONE/APAP 5/325 TAB PO PRN ×5 (03:40→22:58)
[2017-03-05] MEDS: KETOROLAC 30 MG/1 ML SDV IVP PRN (05:46)
[2017-03-05 05:52] LABS: MEAN CELL HEMOGLOBIN 27.7 pg (27.9-34.1); MEAN CELL VOLUME 86.5 fL (81.5-99.8); RED BLOOD CELL COUNT 2.89 10^6/uL (4.40-6.38); RED CELL DISTRIBUTION WIDTH 16.9 % (11.5-15.2)
[2017-03-05 06:14] LABS: ANION GAP 12 mEq/L (8-16); CALCIUM 8.3 mg/dL (8.5-10.4); CARBON DIOXIDE 27 mEq/l (22-31); CHLORIDE 103 mEq/L (97-110); CREATININE 0.6 mg/dL (0.7-1.3); GLOMERULAR FILTRATION RATE > 60; GLUCOSE 100 mg/dL (70-100); POTASSIUM 4.7 mEq/L (3.5-5.2); SODIUM 142 mEq/L (134-144)
--- NOTE | 2017-03-05 08:05 | SOAPPROG ---
SOAP Progress Note Assessment/Plan: Assessment: POD#2 MICS TV replacement with #27 [place] bioprosthesis. Access rt thoracotomy. Central and peripheral (rt fem-fem) CPB. Intercostal nerve block with cryothermy. Tricuspid valve Staph haemolyticus endocarditis with right heart failure, severe TR, and septic pulmonary emboli - Extensive valvular vegetations (see photos paper chart) with leaflet destruction and tissue valvular replacement undertaken. Prelim cxs NGTD. Off CPB on inotropic and pressor support. Successfully extubated and weaned off drips yest. IV Abx as per ID. Antithrombotic prophylaxis with Coumadin, target INR 2-3, duration 3 mo pending stability of rhythm. 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 Possible RLL mucus plugging. Consider bronchoscopy. Acute expected blood loss anemia - Stable s/p 2U of PRBC. VTE prophylaxis with lovenox pending INR > 1.8. Polysubstance abuse - Continue supportive care. Adequate postop pain control with multimodal analgesia. Expect reduced narc need post chest tube removal. Plan: Remove chest tube and TCPWs. Aggressive pulm toilet. Inc activity as tolerated. Switch toradol to ibuprofen. NPO pending bronch. Clear liq diet to follow pending improved bowel sounds. Reglan prn. Begin Coumadin. 5 mg today. PCU status. 03/05/17 07:57 Subjective: Gassy. Hurts to breath but very anxious about chest tube removal. Objective: Vital Signs Temp Pulse Resp BP Pulse Ox 36.5 C 80 20 95/56 L 97 03/05/17 07:51 03/05/17 07:51 03/05/17 07:51 03/05/17 07:51 03/05/17 07:51 Microbiology 03/03/17 13:50 Gram Stain - Final Heart - Anaerobic Tube/Swab Laboratory Results 03/05/17 05:40 03/05/17 05:40 03/04/17 03/05/17 03/06/17 05:59 05:59 05:59 Intake Total 3073.8 1877 Output Total 1870 1090 Balance 1203.8 787 PT 12.9 SEC (12.0-15.0) 02/27/17 15:30 INR 0.95 (0.83-1.16) 02/27/17 15:30 Holding SR 70s-80s. SBPs 90s-100s. Suppl O2 req 3-5 Lpm. Positive fluid balance. +9kg overall. No sig CTOP. CXR-> no PTX, hypoventilation with basilar atelectasis, elev RHD, mild pulm vasc congestion Labs as expected. Physical Exam - Physical Exam General Appearance: alert, mild distress Respiratory: decreased breath sounds (rt base), crackles (scattered) Cardiac/Chest: regular rate, rhythm, other (rt thoracot and groin CDI) Abdomen: distended Extremities: swelling (1+ gen) ICD10 Worksheet Patient Problems: Problems Problem Status Onset Endocarditis Acute Receiving intravenous antibiotic treatment as outpatient Acute
[2017-03-05] MEDS: NS IV SCH (08:33)
[2017-03-05] MEDS: ASPIRIN 81 MG CHEWABLE TAB PO SCH (08:33)
[2017-03-05] MEDS: DAPTOMYCIN IV SCH (08:33)
[2017-03-05] MEDS: PANTOPRAZOLE SODIUM 40 MG TAB PO SCH (08:33)
[2017-03-05] MEDS: ENOXAPARIN 40 MG/0.4 ML SYR SC SCH (08:33)
[2017-03-05] MEDS: MUPIROCIN 2% 22 GM OINT NS SCH (08:33)
--- NOTE | 2017-03-05 09:20 | PCMIDPN ---
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 POD#2 MICS TV replacement with #27 [place] bioprosthesis via rt thoracotomy. Resolution of leukocytosis. --continue high-dose daptomycin at 10 milligrams/kilogram. On daptomycin due to difficulty maintaining adequate levels with Vancomycin IV and convenience of outpatient therapy. No contraindication to resuming high-dose vancomycin while in house. Daptomycin ROSETTA < 1. Vancomycin ROSETTA equal to 1 --continue to monitor valve culture and path reports. --duration of IV antibiotics postoperatively 4-6 weeks. Therapy will have to be under observation due to h/o drug use --discussed pain management with CT surgery # RLL infiltrate: likely atelectasis, temporary paralysis of phrenic nerve, AF, nl wbc Medications Daptomycin 650 mg IV daily micro 02/27 blood cultures remain negative. 03/01 valve cx : +PMNs, no org; Cx NGTD Staph haemolyticus Daptomycin ROSETTA < 1. Vancomycin ROSETTA=1 CXR: worsening infiltrate RLL, likely atelectasis, elevation R hemidiaphragm Care coordinated with CT surgery and critical care team Subjective: c/o R side chest pain, tightness patient walked a lap yesterday CT to be removed today Objective: Vital Signs Temp Pulse Resp BP Pulse Ox 36.5 C 80 20 95/56 L 97 03/05/17 07:51 03/05/17 07:51 03/05/17 07:51 03/05/17 07:51 03/05/17 07:51 Microbiology 03/03/17 13:50 Gram Stain - Final Heart - Anaerobic Tube/Swab Laboratory Results 03/05/17 05:40 03/05/17 05:40 03/04/17 03/05/17 03/06/17 05:59 05:59 05:59 Intake Total 3073.8 1877 Output Total 1870 1090 60 Balance 1203.8 787 -60 - Physical Exam General Appearance: alert, no apparent distress EENT: pale conjunctiva Respiratory: other (decreased bs R side, NGUYEN bulb) Neck: supple Cardiac/Chest: regular rate, rhythm Extremities: other (R arm slight ), No pedal edema Abdomen: non-tender, soft Male Genitalia: No caraballo Skin: diaphoresis, No rash Neuro/Psych: alert, normal mood/affect, oriented x 3 - Line/s other Lines: other (R IJ c/d/i), No drainage, No erythema - Time Spent With Patient Time Spent with Patient: greater than 35 minutes Time Spent with Patient: Greater than 35 minutes spent on this patients care, greater than 50% of time spent counseling, educating, and coordinating care regarding the above mentioned plan. ICD10 Worksheet Patient Problems: Problems Problem Status Onset Endocarditis Acute Receiving intravenous antibiotic treatment as outpatient Acute
[2017-03-05] MEDS ORDERED: DIAZEPAM 10 MG/2 ML SYR IVP ONE (09:39)
--- NOTE | 2017-03-05 10:54 | PDINTPN ---
Running Specialist Progress Note Assessment/Plan: Assessment: TV Endocarditis: S/P replacement. On Daptomycin. Septic Pulmonary Emboli: Due to TV endocarditis. Rx supportive and antibiotics. Anemia: Due to acute blood loss. Down a bit more today. Hyperglycemia: Improved, off insulin gtt Elevated right diaphragm: Likely due to atelectasis/splinting related to surgical pain and CT. ? mucous plugging, phrenic nerve paralysis. IVDA: Plan: Follow glucoses, SSI PRN. Repeat H/H. Continue daptomycin. Wean down narcotics now that CT out. Bronch today for possible mucous plugging RLL. 03/05/17 11:00 Subjective: C/O back pain. Still has trouble taking a deep breath. Objective: Vital Signs Temp Pulse Resp BP Pulse Ox 36.5 C 80 20 95/56 L 97 03/05/17 07:51 03/05/17 07:51 03/05/17 07:51 03/05/17 07:51 03/05/17 07:51 Microbiology 03/03/17 13:50 Gram Stain - Final Heart - Anaerobic Tube/Swab Laboratory Results 03/05/17 05:40 03/05/17 05:40 03/04/17 03/05/17 03/06/17 05:59 05:59 05:59 Intake Total 3073.8 1877 Output Total 1870 1090 80 Balance 1203.8 787 -80 PT 12.9 SEC (12.0-15.0) 02/27/17 15:30 INR 0.95 (0.83-1.16) 02/27/17 15:30 CXR: Elevated right diaphragm. Images reviewed by me. Physical Exam - Physical Exam General Appearance: alert, no apparent distress EENT: normal ENT inspection Neck: normal inspection Respiratory: lungs clear, normal breath sounds Cardiac/Chest: regular rate, rhythm, No edema Abdomen: normal bowel sounds, non-tender Skin: normal color, warm/dry Extremities: normal inspection Neuro/Psych: alert, oriented x 3, No normal mood/affect (tearful, anxious) ICD10 Worksheet Patient Problems: Problems Problem Status Onset Endocarditis Acute Receiving intravenous antibiotic treatment as outpatient Acute
[2017-03-05] MEDS ORDERED: IBUPROFEN 600 MG TAB PO SCH (12:00)
[2017-03-05] MEDS: traMADol 50 MG TAB PO PRN (12:30)
[2017-03-05] MEDS: IBUPROFEN 200 MG TAB PO SCH ×3 (12:30→20:44)
--- NOTE | 2017-03-05 15:13 | HOSPPROG ---
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 Resp PCR and blood cultures negative #Small apical PTX: repeat CXR in morning #Acute hypoxic resp failure: possible mucus plug; bronch today #Septic pulmonary emboli: plan as above #Chest pain: due to emboli. PRN Toradol. Fentanyl patch, Tramadol #Polysubstance abuse: counseled on cessation #Anxiety: Valium BID #DVT ppx: Lovenox Disp: cont inpatient admission for IV abx, valve replacement Subjective: Chest pain still persists Objective: Vital Signs Temp Pulse Resp BP Pulse Ox 36.6 C 82 16 105/62 99 03/05/17 15:00 03/05/17 12:00 03/05/17 12:00 03/05/17 12:00 03/05/17 12:00 Microbiology 03/03/17 13:50 Gram Stain - Final Heart - Anaerobic Tube/Swab Laboratory Results 03/05/17 05:40 03/05/17 05:40 03/04/17 03/05/17 03/06/17 05:59 05:59 05:59 Intake Total 3073.8 1877 550 Output Total 1870 1090 580 Balance 1203.8 787 -30 PT 12.9 SEC (12.0-15.0) 02/27/17 15:30 INR 0.95 (0.83-1.16) 02/27/17 15:30 - Physical Exam Constitutional: no apparent distress, uncomfortable Eyes: PERRL Ears, Nose, Mouth, Throat: moist mucous membranes, hearing normal Cardiovascular: regular rate and rhythym, systolic murmur, No edema Respiratory: reduced air movement Gastrointestinal: normoactive bowel sounds, soft, non-tender abdomen Genitourinary: no bladder fullness Skin: warm Musculoskeletal: full muscle strength Neurologic: AAOx3, CN II-XII Intact Psychiatric: anxious ICD10 Worksheet Patient Problems: Problems Problem Status Onset Endocarditis Acute Receiving intravenous antibiotic treatment as outpatient Acute
--- NOTE | 2017-03-05 15:28 | ASMTCMCOM ---
CM Note CM Note Notes: Spoke with Zoe from Dr. Carbajal's office who said patient's mother had called concerned about his d/c plan. It is unclear at this time if [facility] will [facility] or here in the [facility]. Called the [facility] nurse and left a message to get clarification. Awaiting her return call. [facility], the Retail Delivery Driver can bring him to the infusion center as another option. (this has been done in the past). CM will follow. Date Signed: 03/05/2017 03:27 PM Electronically Signed By:Ofelia Brar LCSW
[2017-03-05] MEDS ORDERED: WARFARIN SODIUM 5 MG TAB PO ONE (16:00)
[2017-03-05] MEDS ORDERED: IPRATROPIUM/ALBUTEROL 3 ML DEYVIAL IH PRN (18:10)
[2017-03-05] MEDS ORDERED: FUROSEMIDE 20 MG/2 ML VIAL IVP ONE (18:15)
[2017-03-05 18:23] LABS: POTASSIUM 3.9 mEq/L (3.5-5.2)
[2017-03-05] MEDS ORDERED: FUROSEMIDE 40 MG/4 ML VIAL IVP ONE (19:20)
[2017-03-05] MEDS ORDERED: PROTOCOL POTASSIUM 1 DOSE MISC PRN (20:08)
[2017-03-05] MEDS: SENNOSIDES/DOCUSATE SODIUM TAB PO SCH (20:44)
[2017-03-05] MEDS: MELATONIN 3 MG TAB PO SCH (20:44)
[2017-03-06 00:43] LABS: POTASSIUM 4.1 mEq/L (3.5-5.2)
[2017-03-06] MEDS: HYDROCODONE/APAP 5/325 TAB PO PRN ×3 (02:58→22:24)
[2017-03-06] MEDS: DIAZEPAM 5 MG TAB PO PRN ×3 (03:59→20:46)
[2017-03-06] MEDS: IBUPROFEN 200 MG TAB PO SCH ×5 (06:06→20:45)
[2017-03-06 06:16] LABS: HEMATOCRIT 26.9 % (40.0-51.0); HEMOGLOBIN 8.8 g/dL (13.7-17.5); MEAN CELL HEMOGLOBIN 28.4 pg (27.9-34.1); MEAN CELL HEMOGLOBIN CONCENTR. 32.7 g/dL (32.4-36.7); MEAN CELL VOLUME 86.8 fL (81.5-99.8); RED BLOOD CELL COUNT 3.1 10^6/uL (4.40-6.38); RED CELL DISTRIBUTION WIDTH 17.1 % (11.5-15.2)
[2017-03-06 06:29] LABS: INR 0.96 (0.83-1.16)
[2017-03-06] MEDS: PANTOPRAZOLE SODIUM 40 MG TAB PO SCH (08:32)
[2017-03-06] MEDS: ASPIRIN 81 MG CHEWABLE TAB PO SCH (08:32)
[2017-03-06] MEDS: ENOXAPARIN 40 MG/0.4 ML SYR SC SCH (08:32)
[2017-03-06] MEDS: SENNOSIDES/DOCUSATE SODIUM TAB PO SCH ×2 (08:33→20:46)
[2017-03-06] MEDS: traMADol 50 MG TAB PO PRN ×3 (08:33→16:42)
[2017-03-06] MEDS: DAPTOMYCIN IV SCH (08:34)
[2017-03-06] MEDS: NS IV SCH (08:34)
--- NOTE | 2017-03-06 08:37 | SOAPPROG ---
<Anabel Valdez - Last Filed: 03/06/17 09:35> SOAP Progress Note Assessment/Plan: Assessment: POD#3 MICS TV replacement with #27 Magna bioprosthesis. Access rt thoracotomy. Central and peripheral (rt fem-fem) CPB. Intercostal nerve block with cryothermy. 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 Prelim cxs NGTD. Off CPB on inotropic and pressor support. Successfully extubated and weaned off drips POD#1. Active diuresis of significant volume overload underway. IV Abx as per ID. Antithrombotic prophylaxis with Coumadin, target INR 2-3, duration 3 mo pending stability of rhythm. 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 Possible RLL volume loss d/t mucus plugging. No significant change with nebs and physiotherapy. Bronchoscopy refused yest but agreeable to procedure today. Acute expected blood loss anemia - Stable s/p 2U of PRBC. VTE prophylaxis with lovenox pending INR > 1.8. Polysubstance abuse - Continue supportive care. Adequate postop pain control with multimodal analgesia. Plan: NPO pending bronch. BID IV lasix. Trial 40mg. Inc pm dose to 80mg if UOP < 2L. Cont aggressive pulm toilet. Inc activity as tolerated. Cont Coumadin 5 mg daily. Baseline postop echo Mon 03/08. 03/06/17 08:35 Subjective: Distressed that can't sleep on account of freq voiding. Breathing a little more comfortably and feeling a little less bloated than last night. Objective: Vital Signs Temp Pulse Resp BP Pulse Ox 36.4 C 87 20 117/64 96 03/06/17 08:00 03/06/17 08:00 03/06/17 08:00 03/06/17 08:00 03/06/17 08:00 Microbiology 03/03/17 13:50 Gram Stain - Final Heart - Anaerobic Tube/Swab Laboratory Results 03/06/17 06:09 03/06/17 06:09 03/05/17 03/06/17 03/07/17 05:59 05:59 05:59 Intake Total 1877 1311 472 Output Total 9180 4295 Balance 787 -6076 472 PT 13.0 SEC (12.0-15.0) 03/06/17 06:09 INR 0.96 (0.83-1.16) 03/06/17 06:09 Holding HR > 70 and SBP > 100. IV diuresis initiated last night for inc interstitial edema and dyspnea. Suppl O2 needs down to 3Lpm. CXR-> No PTX, unchanged elev of RHD, mod pulm vasc congestion vs compressive atelectasis, decr bowel gas. Improved fluid balance. Still +7.5 kg overall. Labs ok. Physical Exam - Physical Exam General Appearance: alert, mild distress (emotional) Respiratory: decreased breath sounds (rt base), crackles (diffuse), other ( tachypneic) Cardiac/Chest: regular rate, rhythm, other (Sternotomy and rt groin CDI) Peripheral Pulses: 3+: dorsalis-pedis (R) Abdomen: normal bowel sounds, non-tender, soft Skin: warm/dry Extremities: other (low legs no longer edematous) ICD10 Worksheet Patient Problems: Problems Problem Status Onset Endocarditis Acute Receiving intravenous antibiotic treatment as outpatient Acute <Paola Angel - Last Filed: 03/06/17 20:01> SOAP Progress Note Assessment/Plan: Patient seen and examined. Excellent diuresis with Lasix 40mg IV earlier today - roughly -3.1L at time of my exam. Increasing tachycardia throughout day - may be pain related as decreasing narcotic administration due to previous drug abuse history. Unchanged O2 requirements, still only on 3-4L via NC. Agree with bronch by pulmonary which is pending to assess for possible mucous plugging/atelectasis of RLL. Will need pain control as best as possible while minimizing narcotics. Wean O2 as tolerated. I/S and pulmonary toilet. Objective: Vital Signs Temp Pulse Resp BP Pulse Ox 36.4 C 119 H 23 H 100/60 95 03/06/17 19:29 03/06/17 19:29 03/06/17 19:29 03/06/17 19:29 03/06/17 19:29 Microbiology 03/03/17 13:50 Gram Stain - Final Heart - Anaerobic Tube/Swab Laboratory Results 03/06/17 06:09 03/06/17 17:48 03/05/17 03/06/17 03/07/17 05:59 05:59 05:59 Intake Total 1877 1311 1897 Output Total 0156 1243 7938 Balance 204 -0227 -1626 PT 13.0 SEC (12.0-15.0) 03/06/17 06:09 INR 0.96 (0.83-1.16) 03/06/17 06:09
[2017-03-06] MEDS: FUROSEMIDE 40 MG/4 ML VIAL IVP SCH ×2 (09:13→16:04)
[2017-03-06] MEDS: POTASSIUM CL 20 MEQ TAB PO SCH ×2 (09:13→20:45)
[2017-03-06] MEDS: fentaNYL 75 MCG PATCH TD SCH (10:35)
[2017-03-06] MEDS ORDERED: LIDOCAINE 1% 300 MG/30 ML SDV MISC ONE (12:53)
[2017-03-06] MEDS ORDERED: LIDOCAINE 2% JELLY 5 ML TUBE TP ONE (12:53)
--- NOTE | 2017-03-06 13:15 | HOSPPROG ---
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 Resp PCR and blood cultures negative #Small apical PTX: resolved on CXR this morning #Acute hypoxic resp failure: possible mucus plug; bronch today #Septic pulmonary emboli: plan as above #Chest pain: due to emboli. PRN Toradol. Weaning off opioids: Fentanyl patch to 25mcg and then stop in 3 days #Polysubstance abuse: counseled on cessation #Anxiety: Valium BID #DVT ppx: Lovenox Disp: cont inpatient admission for IV abx, valve replacement Subjective: pain in groin at puncture site. Objective: Vital Signs Temp Pulse Resp BP Pulse Ox 37.0 C 110 H 21 H 125/73 H 98 03/06/17 12:00 03/06/17 12:00 03/06/17 12:00 03/06/17 12:00 03/06/17 12:00 Microbiology 03/03/17 13:50 Gram Stain - Final Heart - Anaerobic Tube/Swab Laboratory Results 03/06/17 06:09 03/06/17 06:09 03/05/17 03/06/17 03/07/17 05:59 05:59 05:59 Intake Total 1877 1311 472 Output Total 1090 4685 3160 Balance 018 -4853 -7147 PT 13.0 SEC (12.0-15.0) 03/06/17 06:09 INR 0.96 (0.83-1.16) 03/06/17 06:09 - Physical Exam Constitutional: other (anxious) Eyes: PERRL Ears, Nose, Mouth, Throat: moist mucous membranes, hearing normal Cardiovascular: regular rate and rhythym, systolic murmur Respiratory: inspiratory crackles Gastrointestinal: normoactive bowel sounds, soft, non-tender abdomen, other ( groin site without hematoma) Skin: warm Musculoskeletal: full muscle strength Neurologic: AAOx3, CN II-XII Intact Psychiatric: anxious, flat affect ICD10 Worksheet Patient Problems: Problems Problem Status Onset Endocarditis Acute Receiving intravenous antibiotic treatment as outpatient Acute
--- NOTE | 2017-03-06 14:45 | PCMIDPN ---
Assessment/Plan: 1. Coagulase-negative Staph tricuspid valve endocarditis now postop day 3 status post tricuspid valve replacement: Will continue high-dose daptomycin as is. Needs safety labs in the form of creatine kinase, as well as CBC with diff and CMP repeated tomorrow. Will need 6 weeks of antimicrobial therapy postoperatively. He also needs to use his incentive spirometer. Subjective: Sitting on the edge of the bed, complaining of a headache, and being in pain. Objective: Daptomycin 650 daily Afebrile Vital Signs Temp Pulse Resp BP Pulse Ox 37.0 C 110 H 21 H 125/73 H 98 03/06/17 12:00 03/06/17 12:00 03/06/17 12:00 03/06/17 12:00 03/06/17 12:00 Microbiology 03/03/17 13:50 Gram Stain - Final Heart - Anaerobic Tube/Swab Laboratory Results 03/06/17 06:09 03/06/17 06:09 03/05/17 03/06/17 03/07/17 05:59 05:59 05:59 Intake Total 1877 1311 472 Output Total 1090 4685 3610 Balance 78 -3718 -4371 Tricuspid valve remain sterile - Physical Exam General Appearance: cachetic EENT: pharynx normal, No thrush Respiratory: other (Decreased breath sounds right base, left upper lung fairly clear, some crackles at the left base.) Cardiac/Chest: tachycardia, other (Dressing over right chest, not taken down.) Skin: No rash ICD10 Worksheet Patient Problems: Problems Problem Status Onset Endocarditis Acute Receiving intravenous antibiotic treatment as outpatient Acute
[2017-03-06] MEDS: fentaNYL 25 MCG PATCH TD SCH (14:55)
[2017-03-06 15:11] LABS: POTASSIUM 4.4 mEq/L (3.5-5.2)
[2017-03-06] MEDS ORDERED: fentaNYL 100 MCG/2 ML INJ ONE ×3 (15:19→15:42)
[2017-03-06] MEDS ORDERED: MIDAZOLAM 2 MG/2 ML VIAL ONE ×2 (15:38→15:41)
[2017-03-06] MEDS ORDERED: WARFARIN SODIUM 5 MG TAB PO ONE (16:00)
[2017-03-06] MEDS ORDERED: fentaNYL 100 MCG/2 ML INJ IVP ONE (16:00)
[2017-03-06] MEDS ORDERED: MIDAZOLAM 2 MG/2 ML VIAL IVP ONE (16:00)
--- NOTE | 2017-03-06 16:02 | PDINTPN ---
Esol Teacher Progress Note Assessment/Plan: Assessment: TV Endocarditis: S/P replacement. On Daptomycin. Septic Pulmonary Emboli: Due to TV endocarditis. Rx supportive and antibiotics. Anemia: Due to acute blood loss. Down a bit more today. Hyperglycemia: Improved, off insulin gtt Elevated right diaphragm: Likely due to phrenic nerve paralysis. Atelectasis/ splinting related to surgical pain, mucous plugging also possible.Refused bronch yesterday, now agrees. IVDA: Plan: Follow glucoses, SSI PRN. Follow H/H. Continue daptomycin. Wean down narcotics now that CT out. Bronch today for possible mucous plugging RLL. 03/05/17 11:00 03/06/17 16:01 Subjective: C/O hyperalgesia. Still feels dyspneic Objective: Vital Signs Temp Pulse Resp BP Pulse Ox 37.0 C 110 H 21 H 125/73 H 98 03/06/17 12:00 03/06/17 12:00 03/06/17 12:00 03/06/17 12:00 03/06/17 12:00 Microbiology 03/03/17 13:50 Gram Stain - Final Heart - Anaerobic Tube/Swab Laboratory Results 03/06/17 06:09 03/06/17 14:45 03/05/17 03/06/17 03/07/17 05:59 05:59 05:59 Intake Total 1877 1311 472 Output Total 1090 4685 3610 Balance 925 -2468 -2902 PT 13.0 SEC (12.0-15.0) 03/06/17 06:09 INR 0.96 (0.83-1.16) 03/06/17 06:09 CXR: Shallow inspiration, right diaphragm elevated. Images reviewed by me. Physical Exam - Physical Exam General Appearance: alert, mild distress EENT: normal ENT inspection Neck: normal inspection Respiratory: lungs clear, No normal breath sounds Cardiac/Chest: regular rate, rhythm, No edema Abdomen: normal bowel sounds, non-tender Skin: normal color, warm/dry Extremities: normal inspection Neuro/Psych: alert, No normal mood/affect (tearful, anxious) ICD10 Worksheet Patient Problems: Problems Problem Status Onset Endocarditis Acute Receiving intravenous antibiotic treatment as outpatient Acute
[2017-03-06 16:16] LABS: CK-MB INTERPRETATION NEGATIVE (NEGATIVE)
--- NOTE | 2017-03-06 16:29 | GPN ---
[f rep st] PROCEDURE NOTE DATE OF PROCEDURE: 03/06/2017 PROCEDURE PERFORMED: Flexible fiberoptic bronchoscopy. REASON FOR PROCEDURE: Atelectasis postoperatively, possible mucous plugging. PROCEDURE NOTE: The risks and benefits of the procedure were explained to the patient, who agreed to proceed. The entire procedure was performed in the intensive care unit, with the patient under bloo d pressure, EKG, and oximetry monitoring. It was my assessment that there was no risk of airborne in fection from the procedure. After an appropriate time-out, the patient was given sedation with a tot al of 10 mg of Versed and 400 mcg of fentanyl intravenously. A bite block was placed between his elly th and the bronchoscope was advanced through the bite block to the vocal cords. 1% lidocaine was use d topically on the vocal cords and the airways for anesthesia. The bronchoscope was advanced through the vocal cords into the trachea. There was a scant amount of blood/hemorrhage in the posterior tra rena, which was not occlusive. I proceeded down to the lower airways, where there was a small amount of very thin watery secretions (consistent with lidocaine) in the right-sided airways. This was eas gibran suctioned and there were no occluding mucus plugs. All airways on the right side were examined a nd there were no purulent secretions seen. I then turned to the left-sided airways, where there was a small amount of purulent secretions near the lower lobe, which were easily suctioned and were not o cclusive. All airways were clear of secretions at the end of the procedure. The patient tolerated t he procedure well. No specimens were sent. There was no blood loss. /[id number]/MODL
[2017-03-06 18:16] LABS: POTASSIUM 4.3 mEq/L (3.5-5.2)
[2017-03-06] MEDS: MELATONIN 3 MG TAB PO SCH (20:45)
[2017-03-07] MEDS: traMADol 50 MG TAB PO PRN ×2 (01:18→19:26)
[2017-03-07] MEDS: HYDROCODONE/APAP 5/325 TAB PO PRN ×4 (04:04→21:34)
[2017-03-07] MEDS: IBUPROFEN 200 MG TAB PO SCH ×5 (04:05→21:34)
[2017-03-07] MEDS: DIAZEPAM 5 MG TAB PO PRN ×4 (04:05→22:57)
[2017-03-07 05:13] LABS: ADD DIFF? YES; ADD MORPH? NO; ADD SCAN? NO; ATYPICAL LYMPHOCYTE FLAG 80 (0-99); FRAGMENT RBC FLAG 0 (0-99); HEMATOCRIT 30.6 % (40.0-51.0); HEMOGLOBIN 10.1 g/dL (13.7-17.5); LEFT SHIFT FLG 20 (0-99); LIPEMIA HEMOLYSIS FLAG 80 (0-99); MEAN CELL HEMOGLOBIN 28.4 pg (27.9-34.1); MEAN PLATELET VOLUME 9.2 fL (8.7-11.7); PLATELET CLUMPS FLAG 0 (0-99); PLATELET COUNT 339 10^3/uL (150-400); RED BLOOD CELL COUNT 3.56 10^6/uL (4.40-6.38); RED CELL DISTRIBUTION WIDTH 16.9 % (11.5-15.2)
[2017-03-07 05:32] LABS: INR 1.08 (0.83-1.16); PROTIME(PATIENT) 14.2 SEC (12.0-15.0)
[2017-03-07 05:38] LABS: ALANINE AMINOTRANSFERASE 55 IU/L (21-72); ALBUMIN 3.3 g/dL (3.5-5.0); ALKALINE PHOSPHATASE 102 IU/L (38-126); ANION GAP 8 mEq/L (8-16); ASPARTATE AMINOTRANSFERASE 32 IU/L (17-59); BILIRUBIN,TOTAL 0.5 mg/dL (0.1-1.4); CALCIUM 9.1 mg/dL (8.5-10.4); CARBON DIOXIDE 35 mEq/l (22-31); CHLORIDE 95 mEq/L (97-110); CREATININE 0.5 mg/dL (0.7-1.3); GLOMERULAR FILTRATION RATE > 60; GLUCOSE 85 mg/dL (70-100); POTASSIUM 4.6 mEq/L (3.5-5.2); SODIUM 138 mEq/L (134-144); TOTAL PROTEIN 6.9 g/dL (6.3-8.2)
[2017-03-07 05:51] LABS: PLATELET ESTIMATE ADEQUATE (ADEQ)
--- NOTE | 2017-03-07 08:26 | SOAPPROG ---
<Anabel Valdez - Last Filed: 03/07/17 11:09> SOAP Progress Note Assessment/Plan: Assessment: POD#4 MICS TV replacement with #27 Magna bioprosthesis. Access rt thoracotomy. Central and peripheral (rt fem-fem) CPB. Intercostal nerve block with cryothermy. 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 Prelim cxs NGTD. Off CPB on inotropic and pressor support. Successfully extubated and weaned off drips POD#1. Active diuresis of significant volume overload underway. IV Abx and monitoring labs as per ID. Antithrombotic prophylaxis with Coumadin, target INR 2-3, duration 3 mo pending stability of rhythm. 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 Bronchoscopy negative for significant secretions or mucus plugging. Follow. Acute expected blood loss anemia - Stable s/p 2U of PRBC. VTE prophylaxis with lovenox pending INR > 1.8. Polysubstance abuse - Continue supportive care. Postop pain control with multimodal analgesia as per IM. Plan: Cont BID IV diuresis. Cont aggressive pulm toilet. Inc activity as tolerated. Inc Coumadin to 7.5 mg today. Baseline postop echo tomorrow. 03/07/17 08:25 Subjective: Emotional, feeling overwhelmed at times. Apologizes for outbursts of anger. Wants to cooperate. Agreeable to PT and taking meds on schedule. Objective: Vital Signs Temp Pulse Resp BP Pulse Ox 36.7 C 93 20 100/58 L 95 03/07/17 03:57 03/07/17 03:57 03/06/17 23:46 03/07/17 03:57 03/07/17 03:57 Microbiology 03/03/17 13:50 Gram Stain - Final Heart - Anaerobic Tube/Swab Laboratory Results 03/07/17 05:02 03/07/17 05:02 03/06/17 03/07/17 03/08/17 05:59 05:59 05:59 Intake Total 0874 6632 354 Output Total 6550 0969 Balance -2085 -8613 354 PT 14.2 SEC (12.0-15.0) 03/07/17 05:02 INR 1.08 (0.83-1.16) 03/07/17 05:02 SR/ST, likely reactive to pain/anxiety. Tolerating vigorous diuresis. CXR-> improved aeration left lung, unchanged RHD elevation with diffuse atelectasis. Labs ok. Intraop cxs remain neg for growth. Physical Exam - Physical Exam General Appearance: alert, mild distress (emotional) Respiratory: lungs clear (left side), decreased breath sounds (rt base) Cardiac/Chest: regular rate, rhythm, tachycardia, other (rt thoracot and groin CDI) Abdomen: non-tender, soft Skin: warm/dry Extremities: other (no visible dependent edema) ICD10 Worksheet Patient Problems: Problems Problem Status Onset Endocarditis Acute Receiving intravenous antibiotic treatment as outpatient Acute <Mir Carbajal - Last Filed: 03/08/17 06:51> SOAP Progress Note Assessment/Plan: Assessment: Plan: 03/08/17 06:50 CXR/fluoro noted nerve well visualized during procedure, traction injury will resolve w/in 3 months Objective: Vital Signs Temp Pulse Resp BP Pulse Ox 36.5 C 94 18 108/73 99 03/08/17 04:00 03/08/17 04:00 03/08/17 04:00 03/08/17 04:00 03/08/17 04:00 Laboratory Results 03/07/17 05:02 03/08/17 04:30 03/07/17 03/08/17 03/09/17 05:59 05:59 05:59 Intake Total 1891 9268 Output Total 5065 1295 Balance -3188 -3597 PT 16.2 SEC (12.0-15.0) H 03/08/17 04:30 INR 1.28 (0.83-1.16) H 03/08/17 04:30
--- NOTE | 2017-03-07 08:39 | HOSPPROG ---
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 s/p valve replacement 03/04. Monitoring with CMP, CK #TVR: coumadin #Leukocytosis: mildly up to 12 today. Afebrile. 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 PRN Toradol. Weaning off opioids: Fentanyl patch to 25mcg and then stop 03/08 #Polysubstance abuse: counseled on cessation #Behavioral issues: if continues to be verbally abusive with staff will have Ethics involved with behavioral contract #Anxiety: Valium BID #DVT ppx: Lovenox Disp: cont inpatient admission for IV abx, valve replacement Subjective: right chest pain. Still short of breath Objective: Vital Signs Temp Pulse Resp BP Pulse Ox 36.7 C 93 20 100/58 L 95 03/07/17 03:57 03/07/17 03:57 03/06/17 23:46 03/07/17 03:57 03/07/17 03:57 Microbiology 03/03/17 13:50 Gram Stain - Final Heart - Anaerobic Tube/Swab Laboratory Results 03/07/17 05:02 03/07/17 05:02 03/06/17 03/07/17 03/08/17 05:59 05:59 05:59 Intake Total 1311 1897 590 Output Total 9522 9408 [facility] -4502 -3038 590 PT 14.2 SEC (12.0-15.0) 03/07/17 05:02 INR 1.08 (0.83-1.16) 03/07/17 05:02 - Physical Exam Constitutional: uncomfortable Eyes: PERRL Ears, Nose, Mouth, Throat: moist mucous membranes Cardiovascular: regular rate and rhythym, systolic murmur Respiratory: reduced air movement Gastrointestinal: normoactive bowel sounds Genitourinary: No carabalol in urethra Skin: warm Musculoskeletal: full muscle strength Neurologic: AAOx3, CN II-XII Intact Psychiatric: depressed ICD10 Worksheet Patient Problems: Problems Problem Status Onset Endocarditis Acute Receiving intravenous antibiotic treatment as outpatient Acute
[2017-03-07] MEDS: ASPIRIN 81 MG CHEWABLE TAB PO SCH (08:41)
[2017-03-07] MEDS: ENOXAPARIN 40 MG/0.4 ML SYR SC SCH ×2 (08:42→10:06)
[2017-03-07] MEDS: SENNOSIDES/DOCUSATE SODIUM TAB PO SCH ×2 (08:42→19:26)
[2017-03-07] MEDS: PANTOPRAZOLE SODIUM 40 MG TAB PO SCH (08:42)
[2017-03-07] MEDS: POTASSIUM CL 20 MEQ TAB PO SCH ×2 (08:42→19:26)
[2017-03-07] MEDS: FUROSEMIDE 40 MG/4 ML VIAL IVP SCH ×4 (08:42→14:56)
[2017-03-07] MEDS: NS IV SCH (10:36)
[2017-03-07] MEDS: DAPTOMYCIN IV SCH (10:36)
[2017-03-07] MEDS ORDERED: LIDOCAINE 1% 300 MG/30 ML SDV ONE (11:25)
--- NOTE | 2017-03-07 13:16 | PDINTPN ---
Patch Setter Progress Note Assessment/Plan: Assessment: TV Endocarditis: S/P replacement. On Daptomycin. Septic Pulmonary Emboli: Due to TV endocarditis. Rx supportive and antibiotics. Anemia: Due to acute blood loss. UP today. Hyperglycemia: Improved, off insulin gtt Elevated right diaphragm: Likely due to phrenic nerve paralysis. IVDA: Plan: Follow glucoses, SSI PRN. Follow H/H. Continue daptomycin. Wean down narcotics now that CT out. Fluoroscopy of right diaphragm. 03/07/17 13:15 Subjective: C/O CP with cough. Denies pain while at rest. Was able to walk around unit today , feels strength is improving. Objective: Vital Signs Temp Pulse Resp BP Pulse Ox 36.7 C 89 17 118/80 92 03/07/17 03:57 03/07/17 12:00 03/07/17 12:00 03/07/17 12:00 03/07/17 12:00 Microbiology 03/03/17 13:50 Gram Stain - Final Heart - Anaerobic Tube/Swab Laboratory Results 03/07/17 05:02 03/07/17 05:02 03/06/17 03/07/17 03/08/17 05:59 05:59 05:59 Intake Total 1311 1897 708 Output Total 4685 5072 400 Balance -9244 -8337 308 PT 14.2 SEC (12.0-15.0) 03/07/17 05:02 INR 1.08 (0.83-1.16) 03/07/17 05:02 Physical Exam - Physical Exam General Appearance: alert, no apparent distress EENT: normal ENT inspection Neck: normal inspection Respiratory: lungs clear, normal breath sounds Cardiac/Chest: regular rate, rhythm, No edema Abdomen: normal bowel sounds, non-tender Skin: normal color, warm/dry Extremities: normal inspection Neuro/Psych: alert, normal mood/affect, oriented x 3 ICD10 Worksheet Patient Problems: Problems Problem Status Onset Endocarditis Acute Receiving intravenous antibiotic treatment as outpatient Acute
[2017-03-07 15:45] LABS: POTASSIUM 4.7 mEq/L (3.5-5.2)
[2017-03-07] MEDS ORDERED: WARFARIN SODIUM 7.5 MG TAB PO ONE (16:00)
[2017-03-07] MEDS: fentaNYL 25 MCG PATCH TD SCH (16:14)
[2017-03-07] MEDS: MELATONIN 3 MG TAB PO SCH (19:26)
[2017-03-07] MEDS: GUAIFENESIN/DM 10 ML UDCUP PO PRN (20:15)
[2017-03-08] MEDS: traMADol 50 MG TAB PO PRN ×2 (01:15→19:58)
[2017-03-08] MEDS: HYDROCODONE/APAP 5/325 TAB PO PRN ×5 (01:15→21:02)
[2017-03-08] MEDS: GUAIFENESIN/DM 10 ML UDCUP PO PRN ×2 (01:15→19:56)
[2017-03-08 04:45] LABS: INR 1.28 (0.83-1.16); PROTIME(PATIENT) 16.2 SEC (12.0-15.0)
[2017-03-08 04:47] LABS: POTASSIUM 4.6 mEq/L (3.5-5.2)
[2017-03-08] MEDS: IBUPROFEN 200 MG TAB PO SCH ×4 (05:29→19:57)
[2017-03-08] MEDS ORDERED: ALTEPLASE 2 MG VIAL IVP PRN (06:55)
--- NOTE | 2017-03-08 06:56 | SOAPPROG ---
SOAP Progress Note Assessment/Plan: POD#4 MICS TV replacement with #27 Magna bioprosthesis. Access rt thoracotomy. Central and peripheral (rt fem-fem) CPB. Intercostal nerve block with cryothermy. 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 Acute blood loss anemia - Stable s/p 2U of PRBC Polysubstance abuse - Continue supportive care Postoperative right hemidiaphragm paralysis, well-tolerated - Continue supportive care, wean oxygen as tolerated DVT prophylaxis - SCDs/Lovenox (until INR therapeutic) Subjective: Comfortable. Objective: Vital Signs Temp Pulse Resp BP Pulse Ox 36.5 C 94 18 108/73 99 03/08/17 04:00 03/08/17 04:00 03/08/17 04:00 03/08/17 04:00 03/08/17 04:00 Laboratory Results 03/07/17 05:02 03/08/17 04:30 03/07/17 03/08/17 03/09/17 05:59 05:59 05:59 Intake Total 1897 1788 Output Total 5085 3225 Balance -3188 -1437 PT 16.2 SEC (12.0-15.0) H 03/08/17 04:30 INR 1.28 (0.83-1.16) H 03/08/17 04:30 Physical Exam - Physical Exam General Appearance: WD/WN, no apparent distress Neck: normal inspection Respiratory: No respiratory distress Cardiac/Chest: regular rate, rhythm Abdomen: non-tender, soft, No distended Skin: normal color, warm/dry Neuro/Psych: normal mood/affect, cognition abnormalities ICD10 Worksheet Patient Problems: Problems Problem Status Onset Endocarditis Acute Receiving intravenous antibiotic treatment as outpatient Acute
[2017-03-08] MEDS: SENNOSIDES/DOCUSATE SODIUM TAB PO SCH ×2 (07:59→19:58)
[2017-03-08] MEDS: DIAZEPAM 5 MG TAB PO PRN ×3 (07:59→19:55)
[2017-03-08] MEDS: PANTOPRAZOLE SODIUM 40 MG TAB PO SCH (07:59)
[2017-03-08] MEDS: POTASSIUM CL 20 MEQ TAB PO SCH ×2 (08:03→19:58)
[2017-03-08] MEDS: FUROSEMIDE 40 MG/4 ML VIAL IVP SCH (08:04)
[2017-03-08] MEDS: ENOXAPARIN 40 MG/0.4 ML SYR SC SCH (08:09)
[2017-03-08] MEDS: ASPIRIN 81 MG CHEWABLE TAB PO SCH (08:15)
[2017-03-08] MEDS: DAPTOMYCIN IV SCH (09:09)
[2017-03-08] MEDS: NS IV SCH (09:09)
--- NOTE | 2017-03-08 09:16 | HOSPPROG ---
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 s/p valve replacement 03/04. Monitoring with CMP, CK #TVR: coumadin goal 2-3 for 3 months #Leukocytosis: mildly up to 12 today. Afebrile. Resp PCR and blood cultures negative #Paralysis of right hemidiaphragm: should recover. #Small apical PTX: resolved on CXR this morning #Acute hypoxic resp failure: small amount of mucus plug on bronch that was cleared. Nothing to tap on thoracentesis 03/08 #Septic pulmonary emboli: plan as above #Chest pain: due to emboli. PRN Toradol. Weaning off opioids: Fentanyl patch to 25mcg and then stop 03/08 #Polysubstance abuse: counseled on cessation #Behavioral issues: his behavior towards staff makes care difficult. Ethics involved #Anxiety: Valium BID. Can consider having psych re-evaluate him #DVT ppx: Lovenox Disp: cont inpatient admission for IV abx, valve replacement Subjective: chest still hurts. "I want more Valium" Objective: Vital Signs Temp Pulse Resp BP Pulse Ox 36.4 C 100 24 H 108/58 L 92 03/08/17 07:39 03/08/17 07:39 03/08/17 07:39 03/08/17 07:39 03/08/17 07:39 Laboratory Results 03/07/17 05:02 03/08/17 04:30 03/07/17 03/08/17 03/09/17 05:59 05:59 05:59 Intake Total 1897 1788 Output Total 5002 5942 Balance -3188 -1437 PT 16.2 SEC (12.0-15.0) H 03/08/17 04:30 INR 1.28 (0.83-1.16) H 03/08/17 04:30 - Physical Exam Constitutional: no apparent distress Ears, Nose, Mouth, Throat: moist mucous membranes, hearing normal Cardiovascular: regular rate and rhythym, systolic murmur, other (TTP over upper chest), No edema Respiratory: reduced air movement Gastrointestinal: normoactive bowel sounds, soft, non-tender abdomen Genitourinary: no bladder fullness Skin: warm Musculoskeletal: full muscle strength Neurologic: AAOx3, CN II-XII Intact Psychiatric: depressed, agitated, other (angry) ICD10 Worksheet Patient Problems: Problems Problem Status Onset Endocarditis Acute Receiving intravenous antibiotic treatment as outpatient Acute
--- NOTE | 2017-03-08 11:50 | ECHO ---
[email or web address] [address] [address] Main: [phone] Fax: Transthoracic Echocardiogram Name: SAJAN MEYER MR#: [id number] Study Date: 03/08/2017 Study Time: 08:16 AM Date of : 1985 Age: 31 year(s) Height: 175.3 cm (69 in.) Weight: 78.47 kg (173 lb.) BSA: 1.94 m2 Gender: Male Examination: Echo Indication: Post Tricuspid Valve Replacement Image Quality: Contrast: Requested by: Anabel Valdez BP: 108 mmHg/58 mmHg Heart Rate: Rhythm: Indication: Post Tricuspid Valve Replacement Procedure Staff Kaiako Kura Tuarua: Js Carvajal Reading Physician: Mir Bose Requesting Provider: Conclusions: Normal size left ventricle. Global hypercontractility of the left ventricle. EF is 83 %. No regional wall motion abnormality. Moderately to severely reduced right ventricular function. The mitral valve is normal in appearance and function. There is no mitral valve regurgitation. The aortic valve is normal in appearance. There is a tricuspid bioprosthesis. Mild prosthesis regurgitation. No pericardial effusion. Compared to 02/24/2017, there has been interval replacement of the tricuspid valve with a bioprosthesis. Measurements: Chambers Valvular Assessment AV/MV Valvular Assessment TV/PV Normal Normal Normal Name Value Range Name Value Range Name Value Range Ao Karen (MM): 3.7 cm (2.2 cm-3.7 AV Vmax: 1.24 m/s (1 m/s-1.7 TV Vmax: 1.64 m/s (0.3 m/s-0.7 cm) m/s) m/s) IVSd (2D): 0.9 cm (0.6 cm-1.1 AV maxP mmHg ( - ) TV Vmean: 1.16 m/s ( - ) cm) LVOT Vmax: 1.04 m/s (0.7 m/s-1.1 TV PGmax: 11 mmHg ( - ) LVDd (2D): 4.2 cm (4.2 cm-5.9 m/s) TV PGmean: 6 mmHg ( - ) cm) MV E Vmax: 0.82 m/s ( - ) TV VTI: 40.20 cm ( - ) LVDs (2D): 2.0 cm (2.1 cm-4 MV A Vmax: 0.70 m/s ( - ) TR Vmax: 2.69 mm/s ( - ) cm) MV E/A: 1.17 ( - ) TR PGmax: 29 mmHg ( - ) LVPWd (2D): 0.9 cm (0.6 cm-1 cm) syst. PAP: 34 mmHg ( - ) LVEF (2D): 83 (>=54 %) PV Vmax: 1.28 m/s (0.6 m/s-0.9 m/s) PV PGmax: 7 mmHg ( - ) Patient: SAJAN MEYER Study Date: 03/08/2017 Page 1 of 2 08:16 AM Continued Measurements: Chambers Valvular Assessment TV/PV Name Value Name Value LADs Lon.6 cm CVP (est.): 5 mmHg LA Area: 10.9 cm2 TAPSE: 1.5 cm Findings: Left Ventricle: Normal size left ventricle. No LV hypertrophy. Global hypercontractility of the left ventricle. EF is 83 %. No regional wall motion abnormality. Tachycardia. Right Ventricle: Normal size right ventricle. Moderately to severely reduced right ventricular function. Left Atrium: The left atrium is normal in size. Right Atrium: The right atrium is normal in size. Mitral Valve: The mitral valve is normal in appearance and function. There is no mitral valve regurgitation. Aortic Valve: The aortic valve is normal in appearance. The aortic valve is tri-leaflet. Tricuspid Valve: There is a tricuspid bioprosthesis. Mild prosthesis regurgitation. Pulmonic Valve: The pulmonic valve is normal in appearance and function. Aorta: The aorta is normal. Pericardium: No pericardial effusion. (No Signature Object) Patient: SAJAN MEYER Study Date: 03/08/2017 Page 2 of 2 08:16 AM [id number]
[2017-03-08] MEDS: METOPROLOL TARTRATE 25 MG TAB PO SCH ×2 (12:21→19:56)
--- NOTE | 2017-03-08 12:35 | ASMTCMCOM ---
CM Note CM Note Notes: Contacted the [facility] and yes, he is to return to the [facility] on discharge. Patient will need to come to [facility] infusion ctr for daily ABX. Call [phone] [facility] transport when medically ready. Calls out to MD's to determine when patient may be cleared for discharge. CM to follow. Date Signed: 03/08/2017 12:35 PM Electronically Signed By:Sera Henry LCSW
[2017-03-08] MEDS ORDERED: FUROSEMIDE 40 MG TAB PO SCH (15:00)
[2017-03-08] MEDS ORDERED: WARFARIN SODIUM 7.5 MG TAB PO ONE (16:00)
[2017-03-08] MEDS ORDERED: PROTOCOL POTASSIUM 1 DOSE MISC PRN (16:34)
[2017-03-08] MEDS: MELATONIN 3 MG TAB PO SCH (19:57)
[2017-03-08] MEDS: diphenhydrAMINE 25 MG CAP PO PRN (21:02)
[2017-03-09 00:04] VITALS: O2SAT 88
[2017-03-09] MEDS: HYDROCODONE/APAP 5/325 TAB PO PRN ×2 (00:32→05:00)
[2017-03-09] MEDS: traMADol 50 MG TAB PO PRN (02:00)
[2017-03-09] MEDS: DIAZEPAM 5 MG TAB PO PRN (02:00)
--- NOTE | 2017-03-09 05:04 | GOP ---
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 POSTOPERATIVE DIAGNOSIS: Recurrent tricuspid valve endocarditis with embolization and enlarging vege tation, as well as sepsis. PROCEDURE PERFORMED: Tricuspid valve replacement with a #27 Magna bioprosthesis via a right mini tho racotomy with femoral arterial venous cannulation with primary repair. FINDINGS: DESCRIPTION OF PROCEDURE: Patient was consented, brought to the operating room, intubated. Monitori ng lines were placed. He was prepped and draped in sterile classical manner with the right side slig htly elevated. We then performed a 4th intercostal space anterior axillary line 4 cm mini thoracotom y. The right lung was retracted. The diaphragm was retracted inferiorly. The phrenic nerve was jhonny ntified. We then heparinized the patient and cannulated through a small incision over the right common femoral artery and vein with a 17-Irish arterial cannula and a 25-Irish venous cannula under fluoro guidan ce. Cardiopulmonary bypass was begun. The pericardium was easily entered and extended above the aor ta and toward the diaphragm, staying well away from the phrenic. Retraction sutures were placed. We cooled the patient to 28 degrees centigrade with the intention of doing it under fibrillatory arrest . No LV sump was placed since the ventricle never appeared to distend. The patient defibrillated at approximately 32 degrees. We then placed a superior vena caval right angle cannula with caval tapes around both cava. These were secured. The right atrium was opened. A retractor was brought throug h the anterior chest wall. The patient was cooled with fibrillation. Exposure was excellent. Pictu res of the fungating mass on the tricuspid valve were entered in the chart. We then spent some time excising all the necrotic and vegetation material. At the completion, there was only 1 intact leaflet. The other 2 had been completely destroyed. One leaflet was left in place . The chamber was irrigated. We then placed interrupted 2-0 Tycron pledgeted mattress sutures throu gh the annulus, avoiding the conduction system, subsequently through the valve. It was seated in [facility] ce, secured with core knots while rewarming was begun. Spontaneous cardiac activity was noted to res ume. The right atrium was closed. The patient was kept in Trendelenburg. He cardioverted to normal sinus rhythm on his own in [facility]. He was then easily weaned from bypass. The heparin was reversed with protamine. The cannula was removed and oversewn. Subcutaneous tissue was closed in standard fashion. Dressings were appli ed. The patient has a single chest tube placed on the right, and 2 ventricular pacing wires were bro ught out through the same incision. He was returned to ICU in stable condition. /[id number]/MODL
[2017-03-09 05:36] VITALS: BP 122/66; PULSE 109; RESP 22; TEMP 99.3
[2017-03-09] MEDS: IBUPROFEN 200 MG TAB PO SCH (05:39)
[2017-03-09] MEDS ORDERED: ALTEPLASE 2 MG VIAL IVP PRN (05:58)
--- NOTE | 2017-03-09 07:56 | SOAPPROG ---
SOAP Progress Note Assessment/Plan: Assessment: POD#6 MICS TV replacement with #27 Magna bioprosthesis. Access rt thoracotomy. Central and peripheral (rt fem-fem) CPB. Intercostal nerve block with cryothermy. *Pt left ICU this morning AMA (without IVs). 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 Prelim cxs NGTD. Off CPB on inotropic and pressor support. Successfully extubated and weaned off drips POD#1. Active diuresis of significant volume overload underway. IV Abx and monitoring labs as per ID. Antithrombotic prophylaxis with Coumadin, target INR 2-3, duration 3 mo pending stability of rhythm. Postoperative elevation of rt hemidiaphragm - Confirmed by Sniff test. 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 Bronchoscopy negative for significant secretions or mucus plugging. Surface ultrasound negative for effusion. Follow. Acute expected blood loss anemia - Stable s/p 2U of PRBC. VTE prophylaxis with lovenox pending INR > 1.8. Polysubstance abuse - Continue supportive care. Postop pain control with multimodal analgesia as per IM. Plan: Pending return to hospital. 03/09/17 07:51 Objective: Vital Signs Temp Pulse Resp BP Pulse Ox 37.4 C 109 H 22 H 122/66 H 88 L 03/09/17 04:00 03/09/17 04:00 03/09/17 04:00 03/09/17 04:00 03/09/17 04:00 Microbiology 03/03/17 13:50 Gram Stain - Final Heart - Anaerobic Tube/Swab Laboratory Results 03/07/17 05:02 03/08/17 04:30 03/08/17 03/09/17 03/10/17 05:59 05:59 05:59 Intake Total 1788 2258 Output Total 3225 1325 Balance -1437 933 PT 16.2 SEC (12.0-15.0) H 03/08/17 04:30 INR 1.28 (0.83-1.16) H 03/08/17 04:30 ICD10 Worksheet Patient Problems: Problems Problem Status Onset Endocarditis Acute Receiving intravenous antibiotic treatment as outpatient Acute
--- NOTE | 2017-03-09 16:29 | ASDISCHSUM ---
Discharge Information Plan Status: Medically Cleared to Leave:03/08/2017 Discharge Date:03/09/2017 06:00 AM CM D/C Disposition:Against Medical Advice ADT D/C Disposition:Against Medical Advice Projected Discharge Date:03/09/2017 12:00 AM Transportation at D/C: Discharge Delay Reason: Follow-Up Date:03/09/2017 12:00 AM Discharge Slot: Final Diagnosis:Endocarditis Placement Information Patient Contact Information Contact Name:SHANELL Relationship:Benjie Address: Work Phone: City: [facility] Phone: State/Gameology Code: Email: Financial Information Financial Class: Primary Plan Desc:[employer] [place] IP Primary Plan Number:[id number] Secondary Plan Desc: Secondary Plan Number: Assessment Information [facility] CM Progress Note CM Note CM Note Notes: Patient admitted for valve replacement surgery 03/[address] Carbajal. He was previously admitted in and had various behavioral problems complicating his medical treatment. He was ultimately arrested at the hospital on 02/09 and transported to the [facility]. Since that time, he has been receiving IV antibiotics in [facility], administered by [facility]. He was seen by Infectious Disease 02/24 and noted to have worsening vegetation on his tricuspid valve as well as worsening heart failure. He is currently c/o cough and fever. He will likely discharge back to the [facility]. There is currently a deputy in the room with him, although the [facility] is trying to release him on OR. He will go to the ICU post-op, and CM will follow. Date Signed: 02/28/2017 10:19 AM Electronically Signed By:Bianca Soriano RN [facility] CM Progress Note CM Note CM Note Notes: Pt. had heart valve replacement surgery. Per rounds today, Pt. likely to remain in ICU with a sitter due to his behavioral problems and drug use at [facility] in the past. CM met w/ ID MD today who plans for prolonged IV antibiotics. Once Pt. is stabilized from a cardiac point of view, CM should investigate whether Pt. will return to the custody of the [facility] in [facility] to receive IV antibiotics there (as in the past) or have [facility] bring him to [facility] infusion center. If d/c'ed homeless with no planned incarceration, Pt. will need to stay at [facility] for the course of his IV antibiotic treatment. Pt. may also need prolonged coumadin orally, but would put him at risk for bleeding. Per CM colleague, Pt. has burned bridges with his mother who lives in [place] and she is not interested in coming to help where she did before. Pt. w/ mood swings and often manipulative per staff. Pt. has a lot of anxiety. Upon asking, staff cannot recollect Pt. ever putting his hands on staff here. Has had charges of assault in past. CM to follow for d/c POC. Date Signed: 03/04/2017 12:15 PM Electronically Signed By:Porsha Jackson LCSW [facility] Progress Note CM Note CM Note Notes: Spoke with Zoe from Dr. Carbajal's office who said patient's mother had called concerned about his d/c plan. It is unclear at this time if patient will get his IV abx at the [facility] or here in the hospital. Called the [facility] nurse and left a message to get clarification. Awaiting her return call. If patient returns to [facility], the [facility] can bring him to the infusion center as another option. (this has been done in the past). CM will follow. Date Signed: 03/05/2017 03:27 PM Electronically Signed By:Ofelia Brar LCSW [facility] CM Progress Note CM Note CM Note Notes: Contacted the [facility] and yes, he is to return to the [facility] on discharge. Patient will need to come to [facility] infusion ctr for daily ABX. Call [phone] [facility] transport when medically ready. Calls out to MD's to determine when patient may be cleared for discharge. CM to follow. Date Signed: 03/08/2017 12:35 PM Electronically Signed By:Sera Henry LCSW Case Management Discharge Plan Note Case Management Discharge Discharge Order Complete? Answers: No Discharge Comments Notes: Patient left AMA. [facility] contacted. Date Signed: 03/09/2017 04:28 PM Electronically Signed By:Sera Henry LCSW Intervention Information
--- NOTE | 2017-03-09 21:51 | PDDCSUM ---
Discharge Summary Discharge Summary: Pt left hospital AMA today. He did not wait for hospitalist to round, did not wait for prescriptions. Unclear whether he will engage in follow up, not seen by me today. Per nurses appeared stable post op and had been seen by Dr Carbajal today.
== END 2017-03-09 06:00 | disposition left against medical advice (07) | DRG 853 ==
LOC: F2W 17:30 → F2N 03-03 11:46
PROVIDERS: ADMIT Internal Medicine; ATTEND Internal Medicine
PROC: 02RJ08Z Replacement of Tricuspid Valve with Zooplastic Tissue, Open Approach (ICD-10-PCS; principal; 2017-03-03 10:30)
PROC: 5A1221Z Performance of Cardiac Output, Continuous (ICD-10-PCS; principal; 2017-03-03 10:30)
PROC: 30233N1 Transfusion of Nonautologous Red Blood Cells into Peripheral Vein, Percutaneous Approach (ICD-10-PCS; 2017-03-03 10:30)
PROC: 0B938ZZ Drainage of Right Main Bronchus, Via Natural or Artificial Opening Endoscopic (ICD-10-PCS; 2017-03-06)
PROC: 0B9B8ZZ Drainage of Left Lower Lobe Bronchus, Via Natural or Artificial Opening Endoscopic (ICD-10-PCS; 2017-03-06)
DX: A41.1 Sepsis due to other specified staphylococcus (principal); I33.0 Acute and subacute infective endocarditis; I26.90 Septic pulmonary embolism without acute cor pulmonale; E87.2 Acidosis; D62 Acute posthemorrhagic anemia; F19.10 Other psychoactive substance abuse, uncomplicated; F41.9 Anxiety disorder, unspecified; Z72.0 Tobacco use; Z79.2 Long term (current) use of antibiotics
CPT/HCPCS: 82947-QW; 96374; 97116-GP; 97161-GP; 97166-GO; 97530-GP; J0153; J0171; J0282; J0690; J0878; J1170; J1265; J1644; J1650; J1815; J1885; J1940; J2001; J2150; J2250; J2260; J2370; J2405; J2704; J2720; J2765; J2930; J3010; J7060; P9016; P9041; Q9967

== ENCOUNTER 2017-03-26 22:27 | Emergency (ER) | payer MEDICAID ==
[2017-03-26 22:32] VITALS: TEMP 97.9
--- NOTE | 2017-03-26 23:23 | EDPHY ---
General Narrative: CHIEF COMPLAINT: Chest pain, recent surgery HISTORY OF PRESENT ILLNESS: Patient presents with complaints of chest pain and concerns for infection from a recent infection. Complains of ongoing chest pain, primarily over the right mini thoracotomy incision. This was done February 27, 2017 during tricuspid valve replacement. This was all performed here at this hospital. He reportedly was doing well by chart review, but then left AMA on March 09. He informed me that "I was scared about going back to alf," so he left against medical advice. He has not been on any medications since he left AMA. He now complains of increasing pain in the chest that he says he was going to present for tomorrow, however he decided to come to the emergency department when he was arrested this evening. It is described as a burning pain. It is described as severe. He has not tried any medications for this. He has had no fever. No shortness of breath. The pain is worse with movement and cough. REVIEW OF SYSTEMS: Ten systems reviewed and are negative unless otherwise noted in the HPI PCP: None SPECIALISTS: Dr. 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 Occasional alcohol use. Admits to smoking methamphetamine but denies any IV drug use FAMILY HISTORY: Noncontributory EXAMINATION General Appearance: Alert, no distress, anxious and fidgeting Head: normocephalic, atraumatic Eyes: Pupils equal and round, no conjunctival pallor or injection ENT, Mouth: Mucous membranes moist. Uvula is midline. Airway is patent Neck: Normal inspection, supple, non-tender Respiratory: Lungs are clear to auscultation Cardiovascular: Tachycardic rate of 118 beats per minute. Mechanical murmur. Pulses symmetric radial and DP. Gastrointestinal: Abdomen is soft and nontender Back: non-tender, no bony abnormalities Neurological: A&O, nonfocal, normal gait Skin: Warm and dry, no rash. Right anterior axillary many laparotomy incision is clean, dry and intact. It is tender to the touch but no fluctuance or crepitus. Extremities: Nontender, no pedal edema. Range of motion is symmetric. Psychiatric: Mood and affect normal DIFFERENTIAL DIAGNOSES: Including but not limited to sepsis, pleural effusion, incisional infection, endocarditis, myocarditis, pericarditis MDM: 11:18 p.m. Chest pain in a patient who is 2 weeks postop from tricuspid replacement with mini thoracotomy. The patient left AMA on the 09 of March. He has not been on any anticoagulation since then. He has not had any follow-up care. He has been noncompliant in all aspects of his care. He now has chest pain started when he was arrested this evening and says he was going to come in tomorrow for this. He is tachycardic but he is not febrile. He is not hypotensive. He is not tachypneic. Given his extensive medical history, I have ordered lactic acid and blood cultures in addition to routine studies. I have also discussed with Dr. Campuzano any agrees the plan thus far. He is in no acute distress. 12:00 a.m. Patient re-evaluated. Still complaining of pain but remains in no acute distress. Mild tachycardia no hypoxemia or hypotension. I discussed with him that I am not comfortable administering IV pain medication, but that I would order PO medication once I have confirmed no surgical finding on his CXR. 12:45 a.m. Patient re-evaluated. I discussed the negative findings on this x-ray with improved aeration, relatively normal laboratory studies given the patient's scenario. We discussed the need for admission the hospital to resume the previous the that he left against medical advice for. He assures me that he is here to be treated and will not leave. At this point [place] Police when has left here and he does not appear to be under arrest, he is aware of this and still wants to stay for treatment. 1:20 a.m. Case discussed with hospitalist Dr. Heart. She will admit the patient to her service. She is requesting sedimentation rate, urine drug screen, and 1 milligram/kilogram Lovenox subcutaneous administration. No other orders. He is admitted in stable condition. EKG interpretation: Dr. Campuzano Sinus tachycardia without acute ischemia SUPERVISION: Patient was independently examined, but I discussed the case with my secondary supervising physician Dr. Campuzano - Diagnostics Imaging Results: Imaging Impressions Chest X-Ray 03/26/17 23:16 Impression: Improved aeration right lung with residual atelectasis and small right pleural effusion. - History Smoking Status: Current some day smoker - Objective Vital Signs: Initial Vital Signs Temperature (C) 97.9 F 03/26/17 22:30 Heart Rate 117 H 03/26/17 22:30 Respiratory Rate 18 03/26/17 22:30 Blood Pressure 135/91 H 03/26/17 22:30 O2 Sat (%) 96 03/26/17 22:30 O2 Delivery Mode Room Air Allergies/Adverse Reactions: No Known Allergies Allergy (Verified 03/26/17 22:32) Home Medications: Medication Instructions Recorded DAPTOmycin [Cubicin 500mg vial (*)] 650 mg IV DAILY 02/27/17 Laboratory Results: Laboratory Results 03/26/17 23:40 03/26/17 23:40 03/26/17 03/26/17 03/26/17 23:40 23:40 23:40 WBC 10.75 10^3/uL H 10^3/uL (3.80-9.50) RBC 5.08 10^6/uL 10^6/uL (4.40-6.38) Hgb 14.3 g/dL g/dL (13.7-17.5) Hct 43.3 % % (40.0-51.0) MCV 85.2 fL fL (81.5-99.8) MCH 28.1 pg pg (27.9-34.1) MCHC 33.0 g/dL g/dL (32.4-36.7) RDW 16.7 % H % (11.5-15.2) Plt Count 356 10^3/uL 10^3/uL (150-400) MPV 9.3 fL fL (8.7-11.7) Neut % (Auto) 59.4 % % (39.3-74.2) Lymph % (Auto) 29.8 % % (15.0-45.0) [place] % (Auto) 6.4 % % (4.5-13.0) Eos % (Auto) 3.3 % % (0.6-7.6) Baso % (Auto) 0.7 % % (0.3-1.7) Nucleat RBC Rel Count 0.0 % % (0.0-0.2) Absolute Neuts (auto) 6.39 10^3/uL 10^3/uL (1.70-6.50) Absolute Lymphs (auto) 3.20 10^3/uL H 10^3/uL (1.00-3.00) Absolute Monos (auto) 0.69 10^3/uL 10^3/uL (0.30-0.80) Absolute Eos (auto) 0.36 10^3/uL 10^3/uL (0.03-0.40) Absolute Basos (auto) 0.07 10^3/uL 10^3/uL (0.02-0.10) Absolute Nucleated RBC 0.00 10^3/uL 10^3/uL (0-0.01) Immature Gran % 0.4 % % (0.0-1.1) Immature Gran # 0.04 10^3/uL 10^3/uL (0.00-0.10) PT 13.2 SEC SEC (12.0-15.0) INR 0.98 (0.83-1.16) APTT 31.6 SEC SEC (23.0-38.0) VBG Lactic Acid Sodium 142 mEq/L mEq/L (134-144) Potassium 4.6 mEq/L mEq/L (3.5-5.2) Chloride 103 mEq/L mEq/L (97-110) Carbon Dioxide 24 mEq/l mEq/l (22-31) Anion Gap 15 mEq/L mEq/L (8-16) BUN 16 mg/dL mg/dL (7-23) Creatinine 0.6 mg/dL L mg/dL (0.7-1.3) Estimated GFR > 60 Glucose 105 mg/dL H mg/dL (70-100) Calcium 9.9 mg/dL mg/dL (8.5-10.4) Total Bilirubin 0.5 mg/dL mg/dL (0.1-1.4) Troponin I < 0.012 ng/mL ng/mL (0.000-0.034) 03/26/17 23:40 WBC RBC Hgb Hct MCV MCH MCHC RDW Plt Count MPV Neut % (Auto) Lymph % (Auto) [place] % (Auto) Eos % (Auto) Baso % (Auto) Nucleat RBC Rel Count Absolute Neuts (auto) Absolute Lymphs (auto) Absolute Monos (auto) Absolute Eos (auto) Absolute Basos (auto) Absolute Nucleated RBC Immature Gran % Immature Gran # PT INR APTT VBG Lactic Acid 0.9 mmol/L mmol/L (0.7-2.1) Sodium Potassium Chloride Carbon Dioxide Anion Gap BUN Creatinine Estimated GFR Glucose Calcium Total Bilirubin Troponin I Departure - Departure Disposition: [facility] Inpatient Acute Clinical Impression: Pain at surgical incision, History of tricuspid valve replacement with mechanical valve Chest pain Qualifiers: Chest pain type: unspecified Qualified Code(s): R07.9 - Chest pain, unspecified Condition: Good Referrals: NONE *PRIMARY CARE P,. [Primary Care Provider] - As per Instructions
--- NOTE | 2017-03-26 23:53 | CPEKG ---
Heart Rate: 107 RR Interval: 561 P-R Interval: 168 QRSD Interval: 148 QT Interval: 380 QTC Interval: 507 P Azalea: 59 QRS Azalea: 13 T Wave Azalea: 6 EKG Severity - ABNORMAL ECG - EKG Impression: SINUS TACHYCARDIA EKG Impression: PROBABLE LEFT ATRIAL ABNORMALITY EKG Impression: RIGHT BUNDLE BRANCH BLOCK Electronically Signed By: Jesus Valles 28-Mar-2017 07:16:15
[2017-03-26 23:59] LABS: PLATELET COUNT 356 10^3/uL (150-400)
[2017-03-27 00:15] LABS: INR 0.98 (0.83-1.16); PROTIME(PATIENT) 13.2 SEC (12.0-15.0)
[2017-03-27] MEDS ORDERED: OXYCODONE/APAP 5/325 TAB PO ONE (01:19)
[2017-03-27] MEDS ORDERED: ACETAMINOPHEN 325 MG TAB PO PRN (01:26)
[2017-03-27] MEDS ORDERED: HYDROCODONE/APAP 5/325 TAB PO PRN (01:26)
[2017-03-27] MEDS ORDERED: ONDANSETRON 4 MG/2 ML VIAL IVP PRN (01:26)
[2017-03-27] MEDS ORDERED: LORazepam 0.5 MG TAB PO PRN (01:26)
[2017-03-27] MEDS ORDERED: PROMETHAZINE HCL 25 MG/ML INJ IVP PRN (01:26)
[2017-03-27] MEDS ORDERED: LR 1,000 ML IV SCH (01:30)
[2017-03-27] MEDS ORDERED: ENOXAPARIN 80 MG/0.8 ML SYR SC ONE ×2 (01:45→11:53)
[2017-03-27 06:35] LABS: PLATELET COUNT 332 10^3/uL (150-400)
[2017-03-27 06:45] LABS: INR 1.05 (0.83-1.16); PROTIME(PATIENT) 13.9 SEC (12.0-15.0)
[2017-03-27] MEDS ORDERED: GABAPENTIN 300 MG CAP PO SCH (09:00)
--- NOTE | 2017-03-27 10:26 | GHP ---
[f rep st] HISTORY AND PHYSICAL DATE OF ADMISSION: 03/27/2017 SOURCE: Patient provides history, is a fair historian. His EMR was reviewed from recent hospital stay, from which patient left AMA. CHIEF COMPLAINT: Right-sided chest pain. 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 Patient also reports some persistent dyspnea on exertion and reports a history at home of shaking fevers and chills. No sweats. Patient also reports that he has had a persistent cough that is productive of green sputum. He denies any known sick contacts. Patient with multiple hospitalizations and ER visits since January, since his diagnosis of endocarditis. Please see Dr. Parker's initial H and P from 2016 for excellent summary. Patient initially was recommended to have tricuspid valve replacement, but at that time had refused and plan was developed to continue with IV infusions. However, patient continued to feel quite ill and subsequently presented on 02/27/2017 amenable to considering a valve replacement. The patient was continued on IV antibiotics, and he did undergo bioprosthetic valve replacement of the tricuspid valve. However, on 02/2017, for unclear reasons, patient left AMA. He reports that he was unaware that he needed to be on any more antibiotics or anticoagulation in particular, but he has been homeless since that time and living and staying outdoors. He complains of bilateral numbness and tingling in the distal extremities, but denies any gangrenous changes of his digits. REVIEW OF SYSTEMS: GENERAL: Positive for fevers and shaking chills. No sweats. SKIN: Patient denies any acute rash or sores. He has been itching near his incision sites on the right chest. ENT: Patient does report chronic rhinorrhea without change. A sore throat that started yesterday. EYES: Patient denies any acute changes in vision or ocular pain. CV: See HPI. RESPIRATORY: Positive for shortness of breath, cough. : No dysuria or hematuria. GI: Patient denies any nausea, vomiting, abdominal pain. MUSCULOSKELETAL: Patient is complaining of a burning sensation on his right back, radiating from his front chest. PSYCH: Patient reports worsening symptoms of depression and anxiety, but denies any SI or HI. NEURO: Patient reports numbness and tingling on his back. No headache. Remainder of review of systems negative, except as noted above. ALLERGIES: No known drug allergies. HOME MEDICATIONS: None. PAST MEDICAL HISTORY: Significant for endocarditis, Staph haemolyticus bacteremia, history of IV drug use (now patient reporting only smokes methamphetamines), severe tricuspid regurgitation status post bioprosthetic valve replacement, septic PE, anxiety, depression, opiate and benzo dependency and abuse, hep C infection. PAST SURGICAL HISTORY: Significant for craniotomy with orbital bone reconstruction and plates, cholecystectomy. FAMILY HISTORY: Significant for mother with hypertension. SOCIAL HISTORY: 1. Patient is in and out of incarceration. He was brought in by local police department, but they have since released the patient. Apparently, patient had complained of the chest pain after he was arrested. 2. Tobacco: 1 pack per day for the past 4 years smoking. 3. Methamphetamine use reported last week, smoked only. Patient reports he no longer uses IV drugs or heroin. 4. Positive occasional marijuana. CODE STATUS: Full. Patient desires his proxy to be his fiancee. PHYSICAL EXAMINATION: VITAL SIGNS: Upon arrival to the emergency department, blood pressure 135/91, heart rate 117, respiratory rate 18, O2 saturation 96% on room air with a temperature of 36.6. Vitals available at time of my interview, blood pressure 117/81, heart rate 95, respiratory rate 18, O2 saturation 95% on room air. GENERAL: No acute distress until patient starts complaining about his right-sided chest pain, he becomes tearful and slightly restless. HEAD: Normocephalic, atraumatic. Patient with well-healed surgical scar in the scalp. ENT: Mucous membranes appear slightly dry. No oropharyngeal erythema or exudates. Dentition is in fair condition. NECK: Supple. Trachea midline. CV: Regular rate and rhythm, 2/6 systolic murmur. CHEST: Patient with well-healed surgical scars on the right side. He does have some excoriations located below the main incision. The incision itself is dry, clean and intact without surrounding erythema. No exudates. No drainage. Patient with complaints of significant tenderness to palpation superficially and at some points I am not even touching the patient and he begins to writhe in pain. RESPIRATORY: Diminished at the bases, right greater than left. Otherwise clear. No wheezes, rales or rhonchi. ABDOMEN: Positive bowel sounds. Soft, nontender to palpation. No rebound, guarding or masses appreciated. : No suprapubic tenderness to palpation. No Reilly catheter in place. EXTREMITIES: Patient without any cyanosis, clubbing or edema. 2+ pedal pulses present. Patient is disheveled with dirty digits, but I do not appreciate any rashes, sores or necrotic changes. MUSCULOSKELETAL: Strength grossly intact. Patient is able to move all extremities, sits up independently. NEURO: Cranial nerves grossly nonfocal. No facial drooping. Patient moves all extremities. PSYCH: Patient does appear increasingly anxious and restless. He does become tearful when discussing his pain or with movement. LABORATORY STUDIES: 1. WBCs 10.75, H and H 14.3 and 43.3, MCV of 85.2, platelet count is 356, no bands. PT 13.2, INR 0.98, PTT is 31.6. Sodium 142, potassium 4.6, chloride is 103, CO2 24, creatinine is 0.6, BUN 16, GFR greater than 60, glucose is 105, calcium 9.9, total bilirubin 0.5. Troponin is negative. 2. U-tox positive for benzos. 3. Chest x-ray image and report reviewed by myself, showing postsurgical changes of tricuspid valve replacement. Heart size stable. Atelectasis right lower lobe, improved from prior comparison. Small right pleural effusion. Left lung is clear. 4. EKG reviewed by myself, showing sinus tachycardia in the 100s, right bundle branch block. Previous EKG from 03/03/2017 was reviewed, similarly with right bundle branch block. ASSESSMENT AND PLAN: This is a 32-year-old gentleman with history of endocarditis, intravenous drug use, recent bioprosthetic valve replacement; who presents with complaints of right-sided chest pain. 1. Right-sided chest pain is pleuritic in nature and superficial, also likely component of pleural effusion. We will try to avoid intravenous narcotics in particular. The patient does have low-dose [place] and Ativan p.o. We will need to titrate off before discharge. Also, we will initiate some dose of gabapentin. 2. The patient is also complaining of numbness and tingling in his hands and his fingers. He may have some component of frostbite or neuropathy. Gabapentin as above. No evidence of necrosis. 3. Tricuspid valve replacement. Patient received full-dose Lovenox in the emergency department. There is question if he will be able to maintain compliance. He currently notes that he is homeless. We will defer to day team to discuss with CT surgery. He was recommended to go with Coumadin for at least 3 months. During my interview with the patient, after reviewing the recommendations that patient was supposed to follow before he left against medical advice, he became increasingly tearful and regretful, so we will follow up later once pain is a little bit more manageable for further discussion. 4. Right pleural effusion. Aeration in the lungs appears to be improving. I do not suspect that this is infected. Patient will be given incentive spirometer. 5. History of Staphylococcus haemolyticus bacteremia. We will hold off on antibiotics at this time. Patient is afebrile. His white count is minimally elevated. Blood cultures times 2 have been ordered. He does not meet sepsis criteria at this time. We will monitor closely for any changes. 6. Hepatitis C. 7. History of hypoalbuminemia, most likely related to patient's acute illness previously on last discharge. We will plan to monitor. Will encourage regular diet. 8. Fluids, electrolytes and nutrition. Monitor electrolytes, replace if needed. Regular diet has been ordered. Intravenous fluids temporarily as patient does appear clinically dehydrated and has been homeless with limited resources. Urine at bedside is quite dark, but clear. 9. Prophylaxis. Sequential compression devices, therapeutic Lovenox. 10. Code status is full. Patient desires his fiancee as proxy if needed. 11. Disposition. Patient has been admitted to observation at this time pending blood cultures and further recommendations from CT surgery. /[id number]/MODL MTDD
[2017-03-27] MEDS ORDERED: WARFARIN SODIUM 5 MG TAB PO ONE (11:06)
[2017-03-27 11:09] VITALS: BP 104/78; PULSE 94; RESP 15; O2SAT 94
[2017-03-27] MEDS ORDERED: WARFARIN SODIUM 5 MG TAB ONE (11:14)
--- NOTE | 2017-03-27 12:25 | ASMTCMCOM ---
CM Note CM Note Notes: Patient presented via police to the ED last night 03/26 with chest pain. Patient had left AMA from [facility] on 03/09/17. Patient was arrested by police yesterday evening and complained of chest pain so he was brought to the ED for medical clearance. [facility] for Lovenox and Coumadin. FIDENCIO Garcia at the [facility] ([phone]) confirmed they have Lovenox supply there and are able to continue his injections (first does given here in the ED). Date Signed: 03/27/2017 12:24 PM Electronically Signed By:Porsha Mancia RN
--- NOTE | 2017-03-27 12:26 | ASDISCHSUM ---
Discharge Information Plan Status:Home with No Needs Medically Cleared to Leave: Discharge Date: CM D/C Disposition:Law Enforcement/Court/Correction ADT D/C Disposition: Projected Discharge Date: Transportation at D/C: Discharge Delay Reason: Follow-Up Date: Discharge Slot: Final Diagnosis: Placement Information Patient Contact Information Contact Name:SHANELL Relationship:Friend Address: Work Phone: City: [facility] Phone: State/Zip Code: Email: Financial Information Financial Class: Primary Plan Desc:MEDICA[employer] HEALTH FIRST DIRECT CUSTOMER SERVICE REPRESENTATIVE Primary Plan Number:[id number] Secondary Plan Desc: Secondary Plan Number: Assessment Information LACE LACE Acuity / Level of Care Answers: No. Emergency dept visits in Answers: 4+ last 6 months Score: 4 Date Signed: 03/27/2017 12:21 PM Electronically Signed By:Porsha Mancia RN [facility] CM Progress Note CM Note CM Note Notes: Patient presented via police to the ED last night 03/26 with chest pain. Patient had left AMA from [facility] on 03/09/17. Patient was arrested by police yesterday evening and complained of chest pain so he was brought to the ED for medical clearance. Patient to be discharged with police to shelter with prescriptions for Lovenox and Coumadin. FIDENCIO Garcia at the shelter ([phone]) confirmed they have Lovenox supply there and are able to continue his injections (first does given here in the ED). Date Signed: 03/27/2017 12:24 PM Electronically Signed By:Porsha Mancia RN Intervention Information
--- NOTE | 2017-03-27 12:27 | GDS ---
[f rep st] DISCHARGE SUMMARY DISCHARGE DIAGNOSIS: 1. Tricuspid valve replacement, mechanical. 2. Methamphetamine use. 3. Chest pain with negative evaluation. Please see admission history and physical by Dr. Kavya Heart. The patient presented with chest pain that coincided with having been arrested as I understand. The patient had a negative evaluation inc luding a chest x-ray showing platelike atelectasis and vastly decreased pleural effusion when compare d with prior. He also had no evidence of infection with a normal venous lactate and a moderate leuko cytosis. He had no kidney failure. Troponin was negative. He had a tox screen that was positive for benzodiazepines but not methamphetamine, although his with tachycardia and tremor was con sistent with methamphetamine intoxication. The patient did have psychomotor, or at least motor agita tion, when I am seeing him. His surgical incision looks well. He has not had heart failure symptoms. The case was discussed by Shira Carbajal who felt, rather strongly, that the patient should not be admitted to the hospital. I saw him. Given the negative evaluation and clinical improvement, I discharged home with Coumadin an d Lovenox. I had hospital the ER Social Work team see him to help get his outpatient followup [facility]. He is discharged home. He may be destined to intermediate given his previously established c ommitments to the [facility]. /[id number]/MODL
== END 2017-03-27 12:08 | disposition home or self-care (01) ==
LOC: UNDOADMOB 03-27 01:21
DX: R07.9 Chest pain, unspecified (principal); Z95.2 Presence of prosthetic heart valve; Z72.0 Tobacco use
CPT/HCPCS: 71010; 93005; 99285; G0378; 80305; J1650

== ENCOUNTER 2017-05-19 13:15 | Emergency (ER) | payer MEDICAID ==
--- NOTE | 2017-05-19 14:07 | CPEKG ---
Heart Rate: 108 RR Interval: 556 P-R Interval: 156 QRSD Interval: 140 QT Interval: 376 QTC Interval: 504 P [place]: 52 QRS [place]: 41 T Wave [place]: 3 EKG Severity - ABNORMAL ECG - EKG Impression: SINUS TACHYCARDIA EKG Impression: PROBABLE LEFT ATRIAL ABNORMALITY EKG Impression: RIGHT BUNDLE BRANCH BLOCK Electronically Signed By: Henok Tian 19-May-2017 14:45:59
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
[2017-05-19] MEDS ORDERED: LORazepam 2 MG/ML INJ IVP ONE (14:42)
[2017-05-19] MEDS ORDERED: NS 1,000 ML IV ONE ×2 (14:42→17:56)
[2017-05-19 14:50] LABS: PLATELET COUNT 244 10^3/uL (150-400)
[2017-05-19 15:01] LABS: PROTIME(PATIENT) 13.4 SEC (12.0-15.0)
[2017-05-19] MEDS ORDERED: ENOXAPARIN 80 MG/0.8 ML SYR SC ONE (15:52)
[2017-05-19] MEDS ORDERED: WARFARIN SODIUM 5 MG TAB PO ONE (15:52)
[2017-05-20] MEDS ORDERED: NICOTINE POLACRILEX 2 MG GUM B PRN (00:19)
[2017-05-20] MEDS ORDERED: LORazepam 1 MG TAB PO ONE (00:27)
[2017-05-20] MEDS ORDERED: LORazepam 2 MG/ML INJ ONE (00:27)
[2017-05-20] MEDS ORDERED: LORazepam 2 MG/ML INJ IVP ONE (00:33)
[2017-05-20 03:12] VITALS: RESP 17
[2017-05-20 05:13] VITALS: BP 126/87; PULSE 130; TEMP 98.2; O2SAT 96
== END 2017-05-20 05:14 | disposition home or self-care (01) ==
DX: F19.10 Other psychoactive substance abuse, uncomplicated (principal); F22 Delusional disorders; F17.200 Nicotine dependence, unspecified, uncomplicated; E86.9 Volume depletion, unspecified
CPT/HCPCS: 80305; 96374; G0480; J1650; J2060

== ENCOUNTER 2017-05-21 16:42 | Emergency (ER) | payer MEDICAID ==
[2017-05-21] MEDS ORDERED: IBUPROFEN 600 MG TAB PO ONE (19:10)
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
[2017-05-21 19:25] VITALS: BP 132/86; PULSE 108; TEMP 97.9
[2017-05-21 19:32] VITALS: RESP 18; O2SAT 96
== END 2017-05-21 19:31 | disposition home or self-care (01) ==
DX: T33.521A Superficial frostbite of right hand, initial encounter (principal); T33.522A Superficial frostbite of left hand, initial encounter; F17.200 Nicotine dependence, unspecified, uncomplicated; X31.XXXA Exposure to excessive natural cold, initial encounter

== ENCOUNTER 2017-08-17 16:54 | Emergency (ER) | payer MEDICAID ==
[2017-08-17] MEDS ORDERED: NALOXONE HCL 0.4 MG/ML INJ IVP ONE (17:02)
[2017-08-17] MEDS ORDERED: NALOXONE HCL 0.4 MG/ML INJ ONE (17:02)
--- NOTE | 2017-08-17 17:04 | EDPHY ---
H & P Stated Complaint: suspected heroin use Time Seen by Provider: 08/17/17 17:03 HPI/ROS: CHIEF COMPLAINT: Suspected heroin use HISTORY OF PRESENT ILLNESS: The patient is brought to the emergency department by police and paramedics with altered mental status and pinpoint pupils. The patient has a history of IV narcotic use. He has a history of endocarditis status post tricuspid valve replacement. The patient states that he is not use narcotics for the past 2 weeks. He reports he used Klonopin 2 days ago. The patient is currently under arrest and has been sent to the ED for medical clearance. REVIEW OF SYSTEMS: A comprehensive 10 point review of systems is otherwise negative aside from elements mentioned in the history of present illness. Source: Patient Exam Limitations: No limitations - Personal History Tetanus Vaccine Date: 2015 - Medical/Surgical History Hx Asthma: No Hx Chronic Respiratory Disease: No Hx Diabetes: No Hx Cardiac Disease: Yes Hx Renal Disease: No Hx Cirrhosis: No Hx Alcoholism: No Hx HIV/AIDS: No Hx Splenectomy or Spleen Trauma: No Other PMH: endocarditis (Apr 2016)/ IV DRUG ABUSE,METH USE, OPIATE AND BENZO DEPENDENCY, ANXIETY, DEPRESSION, SEPSIS facial/orbital bone recontruction 2006. Hep C. heart valve replacement - Social History Smoking Status: Current every day smoker - Physical Exam Exam: General Appearance: Alert, no distress Eyes: Pupils equal and round no pallor or injection ENT, Mouth: Mucous membranes moist Respiratory: There are no retractions, lungs are clear to auscultation Cardiovascular: Regular rate and rhythm Gastrointestinal: Abdomen is soft and nontender, no masses, bowel sounds normal Neurological: A&O, normal motor function, normal sensory exam, normal cranial nerves Skin: Warm and dry, no rashes Musculoskeletal: Neck is supple nontender Extremities: symmetrical, full range of motion Constitutional: Initial Vital Signs Temperature (C) 36.7 C 08/17/17 16:58 Heart Rate 90 08/17/17 16:58 Respiratory Rate 14 08/17/17 16:58 Blood Pressure 104/62 08/17/17 16:58 O2 Sat (%) 94 08/17/17 16:58 O2 Delivery Mode Room Air Allergies/Adverse Reactions: No Known Allergies Allergy (Verified 08/17/17 16:57) Home Medications: Medication Instructions Recorded NK [No Known Home Meds] 05/19/17 Medical Decision Making ED Course/Re-evaluation: The patient presents to the ED with altered mental status and pupillary myosis consistent with likely narcotic intoxication. The patient has no evidence of significant respiratory depression. He is not hypoxic. The patient received 0.4 mg of Narcan which resulted in significant improvement of his somnolence. The patient was observed in the emergency department for 1 hr without any subsequent hypoxia. The patient was searched and he has no additional narcotics on him according to police. The patient will be transferred to the [facility] at 6:00 p.m.. Differential Diagnosis: Differential diagnosis considered include respiratory depression, narcotic overdose, narcotic intoxication. - Data Points Medications Given: Discontinued Medications Naloxone HCl (Narcan) 0.4 mg IVP EDNOW ONE Stop: 08/17/17 17:03 Last Admin: 08/17/17 17:03 Dose: 0.4 mg Departure - Departure Disposition: Home, Routine, Self-Care Clinical Impression: Narcotic abuse Condition: Good Instructions: Narcotic Abuse (ED)
[2017-08-17 18:06] VITALS: BP 109/69
== END 2017-08-17 18:02 | disposition home or self-care (01) ==
LOC: EDUNIT#
DX: F11.10 Opioid abuse, uncomplicated (principal); F17.200 Nicotine dependence, unspecified, uncomplicated
CPT/HCPCS: 96374; J2310

== ENCOUNTER 2017-09-11 02:10 | Emergency (ER) | payer MEDICAID ==
--- NOTE | 2017-09-11 02:13 | EDPHY ---
H & P Time Seen by Provider: 09/11/17 02:13 HPI/ROS: HPI CHIEF COMPLAINT: Medical clearance for detention, possible heroin use, possible Xanax use HISTORY OF PRESENT ILLNESS: Patient is brought to the emergency room by police for medical clearance for detention. According to police he has a longstanding history of IV drug use and benzo abuse. He is warm for his rest in the supposed to go to detention however he is brought here to the emergency room as this concerned that he did IV heroin around midnight last night it is now 215 in the morning. Is unclear if he was given Narcan by a bystander as the police to report that the patient is adamant that he did not do heroin and he did not get Narcan but he did have a to Xanax doses around midnight. He presents emergency room alert and oriented no acute distress he is not sleepy. He has no focal complaints Past Medical History: Polysubstance abuse, IV drug use, IV heroin, endocarditis Past Surgical History: Tricuspid valve replacement due to endocarditis Social History: Polysubstance abuse Family History: Noncontributory ROS REVIEW OF SYSTEMS: A comprehensive 10 point review of systems is otherwise negative aside from elements mentioned in the history of present illness. Exam Constitutional nontoxic appearing in no acute distress, alert and oriented, not sedated, triage nursing summary reviewed, vital signs reviewed, awake/alert. Tachycardic upon arrival. Eyes normal conjunctivae and sclera, EOMI, PERRLA. HENT normal inspection, atraumatic, moist mucus membranes, no epistaxis, neck supple/ no meningismus, no raccoon eyes. Respiratory clear to auscultation bilaterally, normal breath sounds, no respiratory distress, no wheezing. Cardiovascular tachycardic, regular rhythm, no murmur, no edema, distal pulses normal. Gastrointestinal soft, non-tender, no rebound, no guarding, normal bowel sounds, no distension, no pulsatile mass. Genitourinary no CVA tenderness. Musculoskeletal no midline vertebral tenderness, full range of motion, no calf swelling, no tenderness of extremities, no meningismus, good pulses, neurovascularly intact. Skin pink, warm, & dry, no rash, skin atraumatic. Neurologic awake, alert and oriented x 3, AAOx3, moves all 4 extremities equally, motor intact, sensory intact, CN II-XII intact, normal cerebellar, normal vision, normal speech. Psychiatric normal mood/affect. Heme/Lymph/Immune no lymphadenopathy. Differential Diagnosis: Includes but is not limited to in a particular order polysubstance abuse, IV heroin abuse, Xanax abuse Medical Decision Making: Plan for this patient has no focal complaints is now 215 in the morning and stated that he may have done heroin her Xanax around midnight. Will monitor him to make sure he does not sedate. If he is alert and orient stays comfortable I will allow her to be discharged appropriately to detention. Re-evaluation: 0320; patient re-evaluate he is resting comfortably. Heart rate currently 105. He is drinking fluids and has no complaints. He is medically cleared for detention. I highly recommend he refrain from doing drugs GL[employer] SANDER head endocarditis with valve replacement. He is only 32 years old I highly recommend he stops doing drugs and seeks helped when released from detention. Source: Patient, Police - Personal History Tetanus Vaccine Date: 2015 - Medical/Surgical History Hx Asthma: No Hx Chronic Respiratory Disease: No Hx Diabetes: No Hx Cardiac Disease: Yes Hx Renal Disease: No Hx Cirrhosis: No Hx Alcoholism: No Hx HIV/AIDS: No Hx Splenectomy or Spleen Trauma: No Other PMH: endocarditis (Apr 2016)/ IV DRUG ABUSE,METH USE, OPIATE AND BENZO DEPENDENCY, ANXIETY, DEPRESSION, SEPSIS facial/orbital bone recontruction 2006. Hep C. heart valve replacement - Social History Smoking Status: Current every day smoker Constitutional: Initial Vital Signs Temperature (C) 36.7 C 09/11/17 02:17 Heart Rate 125 H 09/11/17 02:17 Blood Pressure 139/82 H 09/11/17 02:17 O2 Sat (%) 95 09/11/17 02:17 O2 Delivery Mode Room Air Allergies/Adverse Reactions: No Known Allergies Allergy (Verified 09/11/17 02:24) Home Medications: Medication Instructions Recorded Blood Thinners 09/11/17 Departure - Departure Disposition: Home, Routine, Self-Care Clinical Impression: Polysubstance abuse Condition: Good Instructions: Polysubstance Abuse (ED) Additional Instructions: 1. Medically cleared for detention. Referrals: NONE *PRIMARY CARE P,. [Primary Care Provider] - As per Instructions
[2017-09-11 03:27] VITALS: BP 134/76
== END 2017-09-11 03:26 | disposition home or self-care (01) ==
DX: F19.10 Other psychoactive substance abuse, uncomplicated (principal); F17.200 Nicotine dependence, unspecified, uncomplicated

== ENCOUNTER 2017-09-17 01:37 | Emergency (ER) | payer OTHER, MEDICAID ==
[2017-09-17] MEDS ORDERED: NS 1,000 ML IV ONE (01:42)
--- NOTE | 2017-09-17 01:47 | CPEKG ---
Heart Rate: 73 RR Interval: 822 P-R Interval: 220 QRSD Interval: 152 QT Interval: 420 QTC Interval: 463 P [place]: 47 QRS [place]: 31 T Wave [place]: 27 EKG Severity - ABNORMAL ECG - EKG Impression: SINUS RHYTHM EKG Impression: FIRST DEGREE AV BLOCK EKG Impression: RIGHT BUNDLE BRANCH BLOCK Electronically Signed By: Eduardo Coreas 17-Sep-2017 07:01:59
[2017-09-17] MEDS ORDERED: ACETAMINOPHEN 500 MG TAB PO ONE (01:54)
[2017-09-17 01:56] LABS: PLATELET COUNT 235 10^3/uL (150-400)
--- NOTE | 2017-09-17 01:59 | EDPHY ---
H & P Time Seen by Provider: 09/17/17 01:54 HPI/ROS: HPI CHIEF COMPLAINT: "muscle spasm in Chest" HISTORY OF PRESENT ILLNESS: Patient is a 32-year-old male, he has a history of IV drug use and endocarditis he has tricuspid valve replaced, also has a history of a PE, methamphetamine abuse, hepatitis-C and antisocial personality disorder, he presents emergency room in custody from group home for left-sided what he describes as a "muscle ache in his chest". Patient reports to me that it does not go anywhere. He states he gets better when he lifts his left arm above his head. However when he put his left arm back down next to his side he gets the achiness. It does not radiate down his arm back or jaw. He has no nausea or diaphoresis. This started over 3 hr ago. He states he was sleeping on his left side it he noticed it. He denies any pleuritic pain. Denies shortness of breath, denies hemoptysis. He states he is compliant with his Coumadin. States he has had constantly now for 3hrs + patient states he has been compliant with his Coumadin as he is incarcerated. Past Medical History: IV drug abuse, hepatitis-C, endocarditis, tricuspid valve replacement, methamphetamine abuse, hepatitis-C, antisocial personality disorder. Past Surgical History: Multiple surgeries including tricuspid valve replacement. Social History: Incarcerated currently. Family History: Noncontributory ROS REVIEW OF SYSTEMS: A comprehensive 10 point review of systems is otherwise negative aside from elements mentioned in the history of present illness. Exam Constitutional nontoxic appearing in no acute distress, triage nursing summary reviewed, vital signs reviewed, awake/alert. Eyes normal conjunctivae and sclera, EOMI, PERRLA. HENT normal inspection, atraumatic, moist mucus membranes, no epistaxis, neck supple/ no meningismus, no raccoon eyes. Respiratory clear to auscultation bilaterally, normal breath sounds, no respiratory distress, no wheezing. Cardiovascular rate normal, regular rhythm, no murmur, no edema, distal pulses normal. Gastrointestinal soft, non-tender, no rebound, no guarding, normal bowel sounds, no distension, no pulsatile mass. Genitourinary no CVA tenderness. Musculoskeletal no midline vertebral tenderness, full range of motion, no calf swelling, no tenderness of extremities, no meningismus, good pulses, neurovascularly intact. Skin pink, warm, & dry, no rash, skin atraumatic. Neurologic awake, alert and oriented x 3, AAOx3, moves all 4 extremities equally, motor intact, sensory intact, CN II-XII intact, normal cerebellar, normal vision, normal speech. Psychiatric normal mood/affect. Heme/Lymph/Immune no lymphadenopathy. Differential diagnosis includes but is not limited to: ACS, atypical chest pain , pneumothorax, pneumonia, pulmonary embolism, aortic dissection, congestive heart failure, tumor, musculoskeletal pain, esophageal pain, GERD, peptic ulcer disease, pancreatitis Medical Decision Making: Plan for this patient rule out acute coronary syndrome , obtain EKG, full secured entrance monitor, check troponin, chest x-ray, blood work, Tylenol for pain control, chest x-ray and re-evaluate. Re-evaluation: ED x-ray chest one view: Negative for cardiopulmonary disease. Similar to previous chest x-ray tricuspid valve present. No evidence of failure. Heart size seem similar to previous x-ray. Chronic elevated right hemidiaphragm. EKG interpretation by me on record in [employer] system. Impression time of EKG 1:45 a.m. This is sinus rhythm rate of 73, first-degree AV block with appear interval 220, right bundle-branch block. Do not appreciate acute ischemia with right bundle branch block. There are T-wave inversions V1 V2. When I compare this to his old EKG dated 03/26/2017 is very similar morphology. 0438: Patient re-evaluated he sleeping at this time no complaints. Denies chest pain. Reviewed his medical records. The note from Dr. Rossi on March 09 requested the patient be on Coumadin for 3 months and after this no further anticoagulation. The patient reports to me he is on Coumadin, however when I review his INR is not therapeutic. Has not been therapeutic for months. Upon review of his medical records and Dr. Oquendo noted does not appear that he needs to be on Coumadin this for out. EKG interpretation by me on record in [employer] system. Impression time of EKG 5:01 a.m., this is sinus rhythm rate of 65 first-degree AV block present NC interval 236. Right bundle-branch block. No acute ischemia appreciated with the right bundle-branch block. EKG is similar to previous EKG. Repeat troponin is also 0.00 Patient was sleeping resting comfortably with no chest pain. His EKG is unchanged with no signs of acute ischemia. Similar to his previous EKGs. He has 2-troponins. The 2nd troponin is about 6 hr after time of onset. I feel comfortable discharging him back to group home. There is no evidence of heart failure. Vital signs are stable. No evidence of acute coronary syndrome Patient resting comfortably without chest pain. Safe for discharge Return precautions discussed she understands return emergency room if develops worsening pain questions or concerns. Source: Patient, Police, EMS - Personal History Tetanus Vaccine Date: 2015 - Medical/Surgical History Hx Asthma: No Hx Chronic Respiratory Disease: No Hx Diabetes: No Hx Cardiac Disease: Yes Hx Renal Disease: No Hx Cirrhosis: No Hx Alcoholism: No Hx HIV/AIDS: No Hx Splenectomy or Spleen Trauma: No Other PMH: endocarditis (Apr 2016)/ IV DRUG ABUSE,METH USE, OPIATE AND BENZO DEPENDENCY, ANXIETY, DEPRESSION, SEPSIS facial/orbital bone recontruction 2006. Hep C. heart valve replacement - Social History Smoking Status: Current every day smoker Constitutional: Initial Vital Signs Temperature (C) 36.7 C 09/17/17 01:45 Heart Rate 76 09/17/17 01:45 Respiratory Rate 16 09/17/17 01:45 Blood Pressure 126/99 H 09/17/17 01:45 O2 Sat (%) 97 09/17/17 01:45 O2 Delivery Mode Room Air Allergies/Adverse Reactions: No Known Allergies Allergy (Verified 09/17/17 01:44) Home Medications: Medication Instructions Recorded Coumadin 09/17/17 Medical Decision Making - Data Points Laboratory Results: Laboratory Results 09/17/17 01:50 09/17/17 01:50 09/17/17 09/17/17 09/17/17 05:01 02:50 01:52 WBC RBC Hgb Hct MCV MCH MCHC RDW Plt Count MPV Neut % (Auto) Lymph % (Auto) [place] % (Auto) Eos % (Auto) Baso % (Auto) Nucleat RBC Rel Count Absolute Neuts (auto) Absolute Lymphs (auto) Absolute Monos (auto) Absolute Eos (auto) Absolute Basos (auto) Absolute Nucleated RBC Immature Gran % Immature Gran # PT INR APTT D-Dimer Sodium Potassium Chloride Carbon Dioxide Anion Gap BUN Creatinine Estimated GFR Glucose Calcium Magnesium Total Bilirubin Conjugated Bilirubin Unconjugated Bilirubin AST ALT Alkaline Phosphatase Creatine Kinase CK-MB (CK-2) Fraction POC Troponin I 0.00 ng/mL ng/mL 0.00 ng/mL ng/mL (0.00-0.08) (0.00-0.08) NT-Pro-B Natriuret Pep Total Protein Albumin Lipase Urine Opiates Screen NEGATIVE (NEGATIVE) Urine Barbiturates NEGATIVE (NEGATIVE) Ur Phencyclidine Scrn NEGATIVE (NEGATIVE) Ur Amphetamine Screen NEGATIVE (NEGATIVE) U Benzodiazepines Scrn NON-NEGATIVE H (NEGATIVE) Urine Cocaine Screen NEGATIVE (NEGATIVE) U Marijuana (THC) Screen NON-NEGATIVE H (NEGATIVE) 09/17/17 09/17/17 09/17/17 01:50 01:50 01:50 WBC 8.50 10^3/uL 10^3/uL (3.80-9.50) RBC 4.90 10^6/uL 10^6/uL (4.40-6.38) Hgb 14.3 g/dL g/dL (13.7-17.5) Hct 42.6 % % (40.0-51.0) MCV 86.9 fL fL (81.5-99.8) MCH 29.2 pg pg (27.9-34.1) MCHC 33.6 g/dL g/dL (32.4-36.7) RDW 15.5 % H % (11.5-15.2) Plt Count 235 10^3/uL 10^3/uL (150-400) MPV 9.7 fL fL (8.7-11.7) Neut % (Auto) 44.2 % % (39.3-74.2) Lymph % (Auto) 41.5 % % (15.0-45.0) Chester % (Auto) 9.3 % % (4.5-13.0) Eos % (Auto) 4.0 % % (0.6-7.6) Baso % (Auto) 0.5 % % (0.3-1.7) Nucleat RBC Rel Count 0.0 % % (0.0-0.2) Absolute Neuts (auto) 3.76 10^3/uL 10^3/uL (1.70-6.50) Absolute Lymphs (auto) 3.53 10^3/uL H 10^3/uL (1.00-3.00) Absolute Monos (auto) 0.79 10^3/uL 10^3/uL (0.30-0.80) Absolute Eos (auto) 0.34 10^3/uL 10^3/uL (0.03-0.40) Absolute Basos (auto) 0.04 10^3/uL 10^3/uL (0.02-0.10) Absolute Nucleated RBC 0.00 10^3/uL 10^3/uL (0-0.01) Immature Gran % 0.5 % % (0.0-1.1) Immature Gran # 0.04 10^3/uL 10^3/uL (0.00-0.10) PT 15.2 SEC H SEC (12.0-15.0) INR 1.18 H (0.83-1.16) APTT 30.6 SEC SEC (23.0-38.0) D-Dimer < 0.27 ug/mLFEU ug/mLFEU (0.00-0.50) Sodium 144 mEq/L mEq/L (135-145) Potassium 4.4 mEq/L mEq/L (3.3-5.0) Chloride 107 mEq/L mEq/L (97-110) Carbon Dioxide 28 mEq/l mEq/l (22-31) Anion Gap 9 mEq/L mEq/L (8-16) BUN 13 mg/dL mg/dL (7-23) Creatinine 0.6 mg/dL L mg/dL (0.7-1.3) Estimated GFR > 60 Glucose 74 mg/dL mg/dL (70-100) Calcium 8.8 mg/dL mg/dL (8.5-10.4) Magnesium 1.8 mg/dL mg/dL (1.6-2.3) Total Bilirubin 0.4 mg/dL mg/dL (0.1-1.4) Conjugated Bilirubin 0.4 mg/dL mg/dL (0.0-0.5) Unconjugated Bilirubin 0.0 mg/dL mg/dL (0.0-1.1) AST 48 IU/L IU/L (17-59) ALT 94 IU/L H IU/L (21-72) Alkaline Phosphatase 92 IU/L IU/L (38-126) Creatine Kinase 78 IU/L IU/L (0-224) CK-MB (CK-2) Fraction 1.21 ng/mL ng/mL (0.00-4.55) POC Troponin I NT-Pro-B Natriuret Pep 117 pg/mL pg/mL (0-125) Total Protein 7.5 g/dL g/dL (6.3-8.2) Albumin 3.9 g/dL g/dL (3.5-5.0) Lipase 155 IU/L IU/L (23-300) Urine Opiates Screen Urine Barbiturates Ur Phencyclidine Scrn Ur Amphetamine Screen U Benzodiazepines Scrn Urine Cocaine Screen U Marijuana (THC) Screen Medications Given: Discontinued Medications Acetaminophen (Tylenol) 1,000 mg PO EDNOW ONE Stop: 09/17/17 01:55 Last Admin: 09/17/17 02:05 Dose: 1,000 mg Sodium Chloride (Ns) 1,000 mls @ 0 mls/hr IV EDNOW ONE; Wide Open PRN Reason: Protocol Stop: 09/17/17 01:43 Last Admin: 09/17/17 01:53 Dose: 1,000 mls Point of Care Test Results: Chemistry 09/17/17 09/17/17 05:01 01:52 POC Troponin I 0.00 ng/mL ng/mL 0.00 ng/mL ng/mL (0.00-0.08) (0.00-0.08) Departure - Departure Disposition: Home, Routine, Self-Care Clinical Impression: Non-cardiac chest pain Condition: Good Instructions: Thoracic Pain (ED) Additional Instructions: 1. Return emergency room if you have worsening symptoms questions or concerns. Referrals: NONE *PRIMARY CARE P,. [Primary Care Provider] - As per Instructions
[2017-09-17 02:11] LABS: INR 1.18 (0.83-1.16); PROTIME(PATIENT) 15.2 SEC (12.0-15.0)
[2017-09-17 02:12] LABS: CREATINE KINASE 78 IU/L (0-224)
--- NOTE | 2017-09-17 05:02 | CPEKG ---
Heart Rate: 65 RR Interval: 923 P-R Interval: 236 QRSD Interval: 152 QT Interval: 428 QTC Interval: 445 P [place]: 47 QRS [place]: 3 T Wave [place]: 18 EKG Severity - ABNORMAL ECG - EKG Impression: SINUS RHYTHM EKG Impression: FIRST DEGREE AV BLOCK EKG Impression: RIGHT BUNDLE BRANCH BLOCK Electronically Signed By: Eduardo Coreas 17-Sep-2017 07:01:59
[2017-09-17 05:34] VITALS: BP 116/88
== END 2017-09-17 05:33 | disposition home or self-care (01) ==
DX: R07.89 Other chest pain (principal); E86.9 Volume depletion, unspecified; F17.200 Nicotine dependence, unspecified, uncomplicated; Z79.01 Long term (current) use of anticoagulants
CPT/HCPCS: 80305; 84484-PO

== ENCOUNTER 2017-12-15 11:26 | Emergency (ER) | payer MEDICAID ==
[2017-12-15 13:19] LABS: PLATELET COUNT 302 10^3/uL (150-400)
--- NOTE | 2017-12-15 13:55 | EDPHY ---
H & P Time Seen by Provider: 12/15/17 13:39 HPI/ROS: CHIEF COMPLAINT: "I need my medicines refilled" HISTORY OF PRESENT ILLNESS: 32-year-old male history of IV drug use, endocarditis, tricuspid valve replacement on chronic Coumadin therapy, has been in [facility] for the past 6 months region receiving his medications, released 2 days ago now with no medications. He is unfamiliar with his dosages. He has been seen at [facility] for his follow-up while he was in [facility]. He is currently asymptomatic. He denies: Fever, chills, chest pain, dyspnea, back pain, syncope, near syncope PRIMARY CARE PROVIDER: REVIEW OF SYSTEMS: 10 systems reviewed and negative with the exception of the elements mentioned in the history of present illness PAST MEDICAL & SURGICAL HISTORY: Infective endocarditis secondary to IV drug use. Tricuspid valve replacement 03/09/2017. Chronic warfarin therapy SOCIAL HISTORY:Denies recent IV drug use PHYSICAL EXAM (Prior to examination, patient consented to physical exam, hands were washed and my usual and customary physical exam procedures followed) 1) GENERAL: Well-developed, well-nourished, alert and oriented. Appears to be in no acute distress. Sleeping easily woken 2) HEAD: Normocephalic, atraumatic 3) HEENT: Pupils equal, round, reactive to light bilaterally. Sclera anicteric. 4) NECK: Full range of motion, no meningeal signs. 5) LUNGS: Clear auscultation bilaterally, no wheezes, no rhonchi, no retractions. 6) HEART: Regular rate and rhythm. No carotid bruit 7) ABDOMEN: No guarding, no rebound, no focal tenderness, negative McBurney's, negative Garcia's, negative Rovsing's, negative peritoneal sign, 8) MUSCULOSKELETAL: Moving all extremities, no focal areas of tenderness, no obvious trauma. No peripheral edema or discoloration. 9) BACK: No CVA tenderness, no midline vertebral tenderness, no fluctuance, no step-off, no obvious trauma, no visual or palpable abnormality. 10) SKIN: No rash, no petechiae. 11) Psychiatric: Patient is oriented X 3, there is no agitation. DIFFERENTIAL DIAGNOSIS: In no particular order including but not limited to medication refill, subtherapeutic INR, supratherapeutic INR Smoking Status: Former smoker Constitutional: Initial Vital Signs Temperature (C) 36.7 C 12/15/17 11:38 Heart Rate 87 12/15/17 11:38 Respiratory Rate 17 12/15/17 11:38 Blood Pressure 126/87 H 12/15/17 11:38 O2 Sat (%) 93 12/15/17 11:38 O2 Delivery Mode Room Air Allergies/Adverse Reactions: No Known Allergies Allergy (Verified 12/15/17 11:38) Home Medications: Medication Instructions Recorded Coumadin 09/17/17 Gabapentin 10/29/17 Seroquel 10/29/17 Tylenol 10/29/17 traMADol 10/29/17 Gabapentin [Neurontin 300 MG (*)] 600 mg PO BID 14 Days cap 12/15/17 MDM/Departure - MDM ED Course/Re-evaluation: I saw this patient independently based on established practice protocols. Care of patient under supervision of secondary supervising physician Dr Valles . I consulted with Cardiology Gavingianluca Hyde at 2:19 p.m. who spoke also with Dr. Mir Carbajal who performed the patient's tricuspid valve surgery and was informed that the patient only needed to be on Coumadin for 3 months postsurgery and does not need to be on anticoagulant currently. The I also reviewed the most recent [facility] progress notes dated November 02, author Dr. Sanchez Wallace . there is no Coumadin listed on the patient's medication list , listed medications include Neurontin, melatonin, acetaminophen. There is no listed Seroquel. Patient is not completely clear whether he has been given Seroquel or not as is states that the [facility] nurse will give him medications and he would take them without knowing specifically what they were. No [facility] medication list accompanies the patient. At this time the pain plan will be discharged without Coumadin prescription, without cervical prescription, prescription for Neurontin 600 mg twice daily, [facility], follow up with [facility]. - Depart Disposition: Home, Routine, Self-Care Clinical Impression: Medication refill Condition: Good Instructions: Medicine Refill (ED) Prescriptions: Gabapentin [Neurontin 300 MG (*)] 600 mg PO BID 14 Days cap Referrals: Sanchez Wallace MD [Medical Doctor] - 2-3 days, call for appt. [facility],. [Clinic] - 2-3 days, call for appt.
[2017-12-15 13:57] LABS: INR 1.36 (0.83-1.16); PROTIME(PATIENT) 16.9 SEC (12.0-15.0)
[2017-12-15 14:47] VITALS: BP 141/98
== END 2017-12-15 14:46 | disposition home or self-care (01) ==
DX: Z76.0 Encounter for issue of repeat prescription (principal); Z79.01 Long term (current) use of anticoagulants; Z87.891 Personal history of nicotine dependence

== ENCOUNTER 2017-12-25 03:49 | Emergency (ER) | payer MEDICAID ==
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
[2017-12-25 03:57] VITALS: BP 143/85
== END 2017-12-25 04:38 ==
LOC: EEVIPCON 03:49
DX: S00.03XA Contusion of scalp, initial encounter (principal); V18.0XXA Pedal cycle driver injured in noncollision transport accident in nontraffic accident, initial encounter; Y93.55 Activity, bike riding; Z95.4 Presence of other heart-valve replacement; B19.20 Unspecified viral hepatitis C without hepatic coma

== ENCOUNTER 2018-02-03 10:06 | Emergency (ER) | payer MEDICAID ==
[2018-02-03] MEDS ORDERED: EPINEPHrine 1 MG in NS 250 ML IV ONE (10:30)
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
[2018-02-03] MEDS ORDERED: EPINEPHrine 1 MG/10 ML SYR IVP ONE (11:26)
[2018-02-03] MEDS ORDERED: AMIODARONE HCL 150 MG/3 ML VIAL ONE (11:26)
[2018-02-03] MEDS ORDERED: MAGNESIUM SULFATE 1 GM/2 ML VIAL ONE (11:26)
[2018-02-03] MEDS ORDERED: SODIUM BICARBONATE 50 MEQ/50 ML SYR ONE (11:26)
--- NOTE | 2018-02-03 16:31 | ECHO ---
[email or web address] [address] [address] Main: [phone] Fax: Transthoracic Echocardiogram Name: SAJAN MEYER MR#: [id number] Study Date: 02/03/2018 Study Time: 10:36 AM Date of : 1985 Age: 32 year(s) Height: ( ) Weight: ( ) BSA: Gender: Male Examination: Echo Indication: STAT ER; cardiac arrest Image Quality: Contrast: Requested by: Physician Ed BP: / Heart Rate: Rhythm: Indication: STAT ER; cardiac arrest Procedure Staff Hotel Houseman: Genia Arrieta [facility] Reading Physician: Pedro Pablo Mejia MD Requesting Provider: Conclusions: 1. This is a limted echocardiogram performed in the setting of cardiac arrest. 2. No pericardial effusion. 3. Cardiac asystole Measurements: Chambers Valvular Assessment AV/MV Valvular Assessment TV/PV Normal Normal Normal Name Value Range Name Value Range Name Value Range Continued Measurements: Findings: Exam Comments: Limited echo to assess heart for cardiac activity. Asystole noted. No cardiac activity noted.. (No Signature Object) Patient: SAJAN MEYER Study Date: 02/03/2018 Page 1 of 1 10:36 AM [id number]
--- NOTE | 2018-02-03 18:53 | ASMTCMCOM ---
CM Note CM Note Notes: Pt presented to the ED via EMS after being found [place] the [address] [facility]. Pt arrived to the ED apneic and in PEA. Pt was pronounced at 10:39. Spoke w/[facility] FIDENCIO Winslow and she states pt had just been released from [facility] this morning. Per EMS, [facility] provided EMS w/an envelope that was found near the pt. The envelope had the pt's name on it and contained his [facility] release paper, various homeless resources, [facility] resources, etc. [employer] arrived to the ED and stated they would contact pt's mother, Xenia (Man Verduzco ([phone], who lives in [place], [place] ) due to the fact that patient hadn't necessarily been "scientifically identified," and they were also going to contact local authorities in [place] and request they go to her home so that she is not alone when she receives the call. This CM provided ED CM # to the tick sewer to provide to Cait if she has any additional questions/concerns, etc. CM available for further assistance if needed. Date Signed: 02/03/2018 06:53 PM Electronically Signed By:Porsha Mancia RN
== END 2018-02-03 13:58 | disposition expired ==
LOC: EDUNIT#
PROC: 5A2204Z Restoration of Cardiac Rhythm, Single (ICD-10-PCS; principal; 2018-02-03)
PROC: 5A19054 Respiratory Ventilation, Single, Nonmechanical (ICD-10-PCS; 2018-02-03)
DX: I46.9 Cardiac arrest, cause unspecified (principal)
CPT/HCPCS: 82435-PO; 82565-PO; 82947-PO; 84132-PO; 84295-PO; 84520-PO; 85014-PO; J0171; J0282; J3475